=== PATIENT | female | born 1990 | race Caucasian/White ===

== ENCOUNTER 2016-07-07 12:35 | Emergency (ER) | payer OTHER ==
[2016-07-07] MEDS ORDERED: SODIUM CHLORIDE 0.9% 1,000 ML IV ONE (13:59)
[2016-07-07] MEDS ORDERED: KETOROLAC 60 MG/2 ML VIAL IVP STA (14:55)
[2016-07-07] MEDS ORDERED: KETOROLAC 30 MG/ML VIAL ONE (15:01)
== END 2016-07-07 16:04 | disposition home or self-care (01) ==
DX: J06.9 Acute upper respiratory infection, unspecified (principal); H92.01 Otalgia, right ear; R03.0 Elevated blood-pressure reading, without diagnosis of hypertension; F17.200 Nicotine dependence, unspecified, uncomplicated

== ENCOUNTER 2017-03-24 14:41 | Emergency (ER) | payer OTHER ==
[2017-03-24 16:49] VITALS: BP 123/73
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
== END 2017-03-24 17:19 | disposition home or self-care (01) ==
LOC: ED 14:41
DX: S09.90XA Unspecified injury of head, initial encounter (principal); F07.81 Postconcussional syndrome; Z87.820 Personal history of traumatic brain injury; F17.200 Nicotine dependence, unspecified, uncomplicated
CPT/HCPCS: 99283

== ENCOUNTER 2017-08-10 21:17 | Emergency (ER) | payer MEDICAID, OTHER ==
[2017-08-10 21:23] VITALS: BP 131/88
--- NOTE | 2017-08-10 21:27 | ED Physician Documentation ---
PD HPI HEENT - Stated complaint Stated Complaint: MOUTH PX - Chief complaint Chief Complaint: Heent - History obtained from History obtained from: Patient - History of Present Illness Timing - onset: Today Timing - details: Gradual onset Pain level now: 9 Location: Tooth Improves: Nothing Worsens: Other (palpation, chewing) Recently seen: Not recently seen - Additional information Additional information: had dental extraction 2 days ago, c/o sudden worsening pain in area of extraction with foul taste in mouth. She says she contacted the dentist's office and a prescription for percocet was provided. She says she dropped off the rx but did not get back to the pharmacy in time to pick it up before they closed. Inadequate relief with tylenol, ibuprofen. 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 : None HEENT: None Psych: Bipolar disorder, Schizophrenia Musculoskeletal: None Derm: None - Past Surgical History Past Surgical History: Yes General: Cholecystectomy, Appendectomy /HEADRIG SAWYER: Tubal ligation, LEEP (Cervical surgery) - Present Medications Home Medications: Ambulatory Orders Medication Instructions Recorded Confirmed Cephalexin [Keflex] 500 mg PO QID #27 capsule 08/10/17 Divalproex Sodium [Depakote] 500 mg PO DAILY 08/10/17 08/10/17 - Allergies Allergies/Adverse Reactions: Allergies Allergy/AdvReac Type Severity Reaction Status Date / Time bupropion HCl * Allergy Rash Verified 08/10/17 21:23 [From Wellbutrin] lamotrigine [From Lamictal] Allergy Rash Verified 08/10/17 21:23 morphine Allergy Rash Verified 08/10/17 21:23 - Social History Does the pt smoke?: Yes Smoking Status: Current every day smoker Does the pt drink ETOH?: No Does the pt have substance abuse?: No - Immunizations Immunizations are current?: Yes Immunizations: TDAP >10years/unknown - POLST Patient has POLST: No PD ED PE NORMAL - Vitals Vital signs reviewed: Yes - General General: Alert and oriented X 3, Well developed/nourished PD ED PE EXPANDED - HEENT HEENT Visual: 1 - swelling, tenderness (mild swelling, TTP at site of extraction; there is no discharge nor apparent drainable collection. No external swelling.) Results - Vitals Vitals: Vital Signs - 24 hr 08/10/17 21:21 Temperature 36.5 C Heart Rate 82 Respiratory 16 Rate Blood Pressure 131/88 H O2 Saturation 98 Oxygen O2 Source Room air PD MEDICAL DECISION MAKING - ED course Complexity details: considered differential, d/w patient Departure - Departure Disposition: 01 Home, Self Care Clinical Impression: History of tooth extraction, Post-operative pain Condition: Good Instructions: ED Tooth Pain Prescriptions: Cephalexin [Keflex] 500 mg PO QID #27 capsule Comments: Follow up with your dentist, next available appointment Forms: Activity restrictions Discharge Date/Time: 08/10/17 22:08
[2017-08-10] MEDS ORDERED: oxyCODONE/ACET 5/325 Prepack 4 PO STA (21:42)
[2017-08-10] MEDS ORDERED: cephALEXin 250 MG CAPSULE PO STA (21:42)
[2017-08-10] MEDS ORDERED: oxyCOD/ACETAMIN 5 MG/325 MG TABLET PO STA (21:42)
== END 2017-08-10 22:08 | disposition home or self-care (01) ==
LOC: ED 21:17
DX: G89.18 Other acute postprocedural pain (principal); F17.200 Nicotine dependence, unspecified, uncomplicated
CPT/HCPCS: 99283; A9270

== ENCOUNTER 2017-09-02 10:57 | Emergency (ER) | payer OTHER ==
--- NOTE | 2017-09-02 12:09 | ED Physician Documentation ---
PD HPI HEADACHE - Stated complaint Stated Complaint: MIGRAINE/RT SIDE WEAKNESS/VOMITING - Chief complaint Chief Complaint: Heent - History obtained from History obtained from: Patient - History of Present Illness Timing - onset: How many days ago (few) Timing - onset during: Rest, Light activity Timing - details: Gradual onset, Still present Worst headache ever?: No: Worst headache ever? (similar to prior severe migraines.) Location: Front, Left Quality: Aching. No: [place]ap Associated symptoms: Nausea, Vomiting, Vision changes (some blurring left eye), Other (feeling just tired and malaise the past week). No: Fever, Stiff neck, Weakness, Numbness Improved by: Dark room. No: Meds Worsened by: Light, Noise Contributing factors: Recent illness (she feels like she might have a cold or flu as feels malaise and very tired the past week. No specific symptoms such as fever, cough, URI, dysuria, diarrhea, etc.). No: Trauma Similar symptoms before: Diagnosis (chronic headaches and more consistent since [facility] couple years ago. States baseline headache is 5-6/10. Has had many prior meds for prophylaxis or chronic treatment. Had tried Topamax when teen and had some improvement with it. Has not been on it recently. Trying to get referrals to neurology/headache specialists again.) Recently seen: Not recently seen Review of Systems Constitutional: reports: Myalgias, Fatigue. denies: Fever, Chills Eyes: reports: Decreased vision, Photophobia. denies: Loss of vision, Discharge Nose: denies: Rhinorrhea / runny nose, Congestion Throat: denies: Sore throat Respiratory: denies: Cough GI: reports: Nausea, Vomiting. denies: Abdominal Pain, Diarrhea : denies: Dysuria, Frequency, Discharge Skin: denies: Rash, Lesions Musculoskeletal: denies: Neck pain, Back pain Neurologic: reports: Generalized weakness, Headache. 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: Tubal ligation, LEEP (Cervical surgery) - Present Medications Home Medications: Ambulatory Orders Medication Instructions Recorded Confirmed Divalproex Sodium [Depakote] 500 mg PO DAILY 08/10/17 08/10/17 Ondansetron [Zofran Odt] 8 mg PO Q6H PRN #20 tab.rapdis 09/02/17 Oxycodone HCl/Acetaminophen 1 each PO Q6H PRN #15 tablet 09/02/17 [Percocet 5-325 mg Tablet] Topiramate [Topamax] 50 mg PO DAILY #30 tablet 09/02/17 - Allergies Allergies/Adverse Reactions: Allergies Allergy/AdvReac Type Severity Reaction Status Date / Time bupropion HCl * Allergy Rash Verified 09/02/17 11:19 [From Wellbutrin] lamotrigine [From Lamictal] Allergy Rash Verified 09/02/17 11:19 morphine Allergy Rash Verified 09/02/17 11:19 - Social History Does the pt smoke?: Yes Smoking Status: Current every day smoker Does the pt drink ETOH?: No Does the pt have substance abuse?: No - Immunizations Immunizations are current?: Yes Immunizations: TDAP >10years/unknown - POLST Patient has POLST: No PD ED PE NORMAL - Vitals Vital signs reviewed: Yes - General General: Alert and oriented X 3, No acute distress, Well developed/nourished - HEENT HEENT: Atraumatic, PERRL, EOMI (light sensitive), Ears normal, Pharynx benign - Neck Neck: Supple, no meningeal sign, No adenopathy - Cardiac Cardiac: RRR, No murmur - Respiratory Respiratory: Clear bilaterally - Abdomen Abdomen: Soft, Non tender - Back Back: No CVA TTP - Derm Derm: Normal color, Warm and dry - Extremities Extremities: No tenderness to palpate, Normal ROM s pain - Neuro Neuro: Alert and oriented X 3, biometrics instructor 2-12 intact, No motor deficit, No sensory deficit, Normal speech Eye Opening: Spontaneous Motor: Obeys Commands Verbal: Oriented GCS Score: 15 - Psych Psych: Normal mood, Normal affect Results - Vitals Vitals: Vital Signs - 24 hr 09/02/17 09/02/17 11:15 15:09 Temperature 36.4 C L Heart Rate 83 58 L Respiratory 18 18 Rate Blood Pressure 142/76 H 113/67 O2 Saturation 100 99 Oxygen O2 Source Room air - Labs Labs: Laboratory Tests 09/02/17 09/02/17 09/02/17 12:30 12:45 12:45 WBC 10.3 RBC 3.88 L Hgb 12.2 Hct 36.2 L MCV 93.2 MCH 31.5 H MCHC 33.8 RDW 13.8 Plt Count 226 MPV 8.1 Neut # 7.7 H Lymph # 2.0 [place] # 0.5 Eos # 0.1 Baso # 0.0 Absolute Nucleated RBC 0.00 Nucleated RBC % 0.0 Sodium 136 Potassium 3.9 Chloride 102 Carbon Dioxide 26 Anion Gap 8.0 BUN 8 Creatinine 0.6 Estimated GFR (MDRD) 119 Glucose 96 Calcium 9.2 Magnesium 1.8 Total Bilirubin 0.6 AST 23 ALT 21 Alkaline Phosphatase 75 Total Protein 7.1 Albumin 4.1 Globulin 3.0 Albumin/Globulin Ratio 1.4 Lipase 21 L Urine Color YELLOW Urine Clarity CLEAR Urine pH 8.5 H Ur Specific [place] 1.015 Urine Protein NEGATIVE Urine Glucose (UA) NEGATIVE Urine Ketones NEGATIVE Urine Occult Blood NEGATIVE Urine Nitrite NEGATIVE Urine Bilirubin NEGATIVE Urine Urobilinogen 0.2 (NORMAL) Ur Leukocyte Esterase NEGATIVE Ur Microscopic Review NOT INDICATED Urine Culture Comments NOT INDICATED Urine HCG, Qual NEGATIVE Last Dose Date Last Dose Time Valproic Acid 09/02/17 12:45 WBC RBC Hgb Hct MCV MCH MCHC RDW Plt Count MPV Neut # Lymph # [place] # Eos # Baso # Absolute Nucleated RBC Nucleated RBC % Sodium Potassium Chloride Carbon Dioxide Anion Gap BUN Creatinine Estimated GFR (MDRD) Glucose Calcium Magnesium Total Bilirubin AST ALT Alkaline Phosphatase Total Protein Albumin Globulin Albumin/Globulin Ratio Lipase Urine Color Urine Clarity Urine pH Ur Specific [place] Urine Protein Urine Glucose (UA) Urine Ketones Urine Occult Blood Urine Nitrite Urine Bilirubin Urine Urobilinogen Ur Leukocyte Esterase Ur Microscopic Review Urine Culture Comments Urine HCG, Qual Last Dose Date Unknown Last Dose Time Unknown Valproic Acid < 10.0 PD MEDICAL DECISION MAKING - ED course Complexity details: re-evaluated patient (feeling down to baseline pain level or less, still at 4-5/10 but that is comfortable for her. Feels able to go home. Discussed trying some meds pending neuro consults. ), considered differential (sounds like migraine and has had some general symptoms of tired and fatigue but does not seem meningitic. Labs are good.), d/w patient Departure - Departure Disposition: Home, Self Care Condition: Stable Record reviewed to determine appropriate education?: Yes Instructions: ED Headache Migraine Follow-Up: JOSEPHINE JACOBO [Primary Care Provider] - Prescriptions: Ondansetron [Zofran Odt] 8 mg PO Q6H PRN #20 tab.rapdis PRN Reason: Nausea / Vomiting Oxycodone HCl/Acetaminophen [Percocet 5-325 mg Tablet] 1 each PO Q6H PRN #15 tablet PRN Reason: Pain Topiramate [Topamax] 50 mg PO DAILY #30 tablet Comments: Your blood tests and urine tests are normal. Your Depakote level is low so not going to be given you side effects of the tiredness and such. He may have a viral illness recently that is making you feel worse. You do not look to have a serious infection. We can try Topamax daily for migraine prophylaxis. Start with 25 mg (half tablet) nightly for a week and then go to a whole tablet nightly. Use ondansetron for nausea. Add pain medicine if needed in the short- term. Follow-up with your primary care and subsequently neurology when the referrals go through. Forms: Activity restrictions Discharge Date/Time: 09/02/17 15:16
[2017-09-02] MEDS ORDERED: PROCHLORPERAZINE 10 MG/2 ML VIAL IVP STA ×2 (12:23→13:24)
[2017-09-02] MEDS ORDERED: TRIAMCINOLONE 40 MG/ML VIAL IM STA (12:23)
[2017-09-02] MEDS ORDERED: diphenhydrAMINE INJ 50 MG/ML VIAL IVP STA (12:23)
[2017-09-02] MEDS ORDERED: KETOROLAC 60 MG/2 ML VIAL IVP STA (12:23)
[2017-09-02] MEDS ORDERED: SODIUM CHLORIDE 0.9% 1,000 ML IV ONE ×2 (12:23→12:24)
[2017-09-02 12:38] LABS: BILIRUBIN,URINE NEGATIVE (NEGATIVE); GLUCOSE, URINE (UA) NEGATIVE (NEGATIVE); KETONES,URINE (UA) NEGATIVE (NEGATIVE); LEUKOCYTE ESTERASE, URINE NEGATIVE (NEGATIVE); NITRITE,URINE NEGATIVE (NEGATIVE); OCCULT BLOOD,URINE NEGATIVE (NEGATIVE); PH,URINE 8.5 PH (5.0-7.5); PROTEIN,URINE NEGATIVE (NEGATIVE); UROBILINOGEN,URINE 0.2 (NORMAL) E.U./dL (NORMAL)
[2017-09-02 12:40] LABS: CLARITY,URINE CLEAR (CLEAR); HCG UR QUAL NEGATIVE
[2017-09-02 13:12] LABS: BASOPHILS % (AUTO) 0.3 %; EOSINOPHILS # (AUTO) 0.1 10^3/uL (0.0-0.7); EOSINOPHILS % (AUTO) 0.6 %; HGB - HEMOGLOBIN 12.2 g/dL (12.0-16.0); LYMPHOCYTES % (AUTO) 18.9 %; MEAN CORPUSCULAR HEMOGLOBIN 31.5 pg (27.0-31.0); MEAN CORPUSCULAR HGB CONC 33.8 g/dL (32.0-36.0); MEAN CORPUSCULAR VOLUME 93.2 fL (81.0-99.0); MEAN PLATELET VOLUME 8.1 fL (7.9-10.8); MONOCYTES # (AUTO) 0.5 10^3/uL (0.0-1.0); MONOCYTES % (AUTO) 5.1 %; NEUTROPHILS # (AUTO) 7.7 10^3/uL (1.5-6.6); NEUTROPHILS % (AUTO) 75.1 %; PLT - PLATELET COUNT 226 10^3/uL (130-450); RED BLOOD COUNT 3.88 10^6/uL (4.20-5.40); RED CELL DISTRIBUTION WIDTH 13.8 % (12.0-15.0); WHITE BLOOD COUNT 10.3 x10^3/uL (4.8-10.8)
[2017-09-02 13:23] LABS: ALBUMIN 4.1 g/dL (3.2-5.5); ALBUMIN/GLOBULIN RATIO 1.4 (1.0-2.2); BILIRUBIN,TOTAL 0.6 mg/dL (0.2-1.0); CALCIUM 9.2 mg/dL (8.5-10.3); CREATININE 0.6 mg/dL (0.4-1.0); MAGNESIUM 1.8 mg/dL (1.7-2.8); TOTAL PROTEIN 7.1 g/dL (6.7-8.2)
[2017-09-02] MEDS ORDERED: HYDROmorphone 2 MG/ML VIAL IVP STA ×2 (13:24→14:55)
[2017-09-02 13:34] LABS: VALPROIC ACID (DEPAKOTE) < 10.0 ug/mL
[2017-09-02 15:09] VITALS: BP 113/67
== END 2017-09-02 15:16 | disposition home or self-care (01) ==
LOC: ED 10:57
DX: G43.909 Migraine, unspecified, not intractable, without status migrainosus (principal); F17.200 Nicotine dependence, unspecified, uncomplicated
CPT/HCPCS: 36415; 80053; 80164; 81003; 81025; 83690; 83735; 85025; 96361; 96372; 96374; 96375; 96376; 99283; 99284; J1170; J1200; 81001; 87086

== ENCOUNTER 2017-09-10 21:31 | Emergency (ER) | payer OTHER ==
[2017-09-10 21:41] VITALS: BP 145/86
[2017-09-10] MEDS ORDERED: oxyCODONE/ACET 5/325 Prepack 4 PO STA (21:48)
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
--- NOTE | 2017-09-10 22:51 | XRAY Preliminary Report ---
Exam: XR CERVICAL SPINE 2 VIEW IMPRESSION: No acute radiographic abnormalities. [facility] SITE ID: [id number]
--- NOTE | 2017-09-10 22:52 | XRAY Report ---
EXAM: CERVICAL SPINE RADIOGRAPHY EXAM DATE: 09/10/2017 10:11 PM. CLINICAL HISTORY: Neck inj. COMPARISONS: 06/07/15. TECHNIQUE: 3 views. FINDINGS: Alignment: No spondylolisthesis or scoliosis. Bones: The cervical vertebral bodies and posterior elements are well visualized from the skull base t hrough C7-T1. No acute displaced fractures. Disks: Disk heights are maintained. Facets: No degenerative disease. Soft Tissues: No prevertebral soft tissue swelling. The visualized lung apices are clear. IMPRESSION: No acute radiographic abnormalities. [facility] Referring Provider Line: [phone] SITE ID: [id number]
== END 2017-09-10 22:55 | disposition home or self-care (01) ==
LOC: ED 21:31
DX: S10.93XA Contusion of unspecified part of neck, initial encounter (principal); W51.XXXA Accidental striking against or bumped into by another person, initial encounter; Y92.129 Unspecified place in nursing home as the place of occurrence of the external cause; Y99.0 Civilian activity done for income or pay; F17.200 Nicotine dependence, unspecified, uncomplicated
CPT/HCPCS: 1040M; 72040; 99282; 99283

== ENCOUNTER 2017-10-17 18:59 | Emergency (ER) | payer OTHER ==
[2017-10-17] MEDS ORDERED: KETOROLAC 60 MG/2 ML VIAL IM STA (20:07)
[2017-10-17] MEDS ORDERED: DEXAMETHASONE 10 MG/ML VIAL PO STA (20:07)
--- NOTE | 2017-10-17 20:10 | ED Physician Documentation ---
PD HPI BACK INJURY - Stated complaint Stated Complaint: BACK PX - History obtained from History obtained from: Patient, Family - History of Present Illness Location: Right, Lower Type of injury: Other (lifting injury) Where injury occurred: Work Timing - onset: Enter time (1300), Today Timing - duration: Hours Timing - details: Abrupt onset, Still present Quality: Pain, Spasm, Sharp Improved by: Rest, Ice, Immobilization Worsened by: Moving, Palpating Associated symptoms: No: Fever, Weakness, Numbness, Incontinent of urine, Unable to urinate, Hematuria, Incontinent of stool Contributing factors: No: Anticoagulated Similar symptoms before: Has not had sx before Recently seen: Not recently seen - Additional information Additional information: 26-year-old female was at 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 She states that it was wrenched her back she felt a pop in the back and now has pain radiating down into the right leg. She denies any numbness she denies any saddle anesthesia or bladder or bowel incontinence. 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 : None HEENT: None Psych: Bipolar disorder, Schizophrenia Musculoskeletal: None Derm: None - Past Surgical History Past Surgical History: Yes General: Cholecystectomy, Appendectomy /PROFESSOR OF LANGUAGES: Tubal ligation, LEEP (Cervical surgery) - Present Medications Home Medications: Ambulatory Orders Medication Instructions Recorded Confirmed Divalproex Sodium [Depakote] 500 mg PO DAILY 08/10/17 08/10/17 Ondansetron [Zofran Odt] 8 mg PO Q6H PRN #20 tab.rapdis 09/02/17 Topiramate [Topamax] 50 mg PO DAILY #30 tablet 09/02/17 Cyclobenzaprine [Flexeril] 10 mg PO TID PRN #20 tablet 10/17/17 Ondansetron Odt [Zofran] 4 mg TL Q6H PRN #10 tablet 10/17/17 oxyCODONE/ACET 5/325 [Percocet 5 1 each PO Q4-6H PRN #12 tablet 10/17/17 mg/325 mg] - Allergies Allergies/Adverse Reactions: Allergies Allergy/AdvReac Type Severity Reaction Status Date / Time bupropion HCl * Allergy Rash Verified 10/17/17 19:13 [From Wellbutrin] lamotrigine [From Lamictal] Allergy Rash Verified 10/17/17 19:13 morphine Allergy Rash Verified 10/17/17 19:13 - Social History Does the pt smoke?: Yes Smoking Status: Current every day smoker Does the pt drink ETOH?: No Does the pt have substance abuse?: No - Immunizations Immunizations are current?: No Immunizations: TDAP >10years/unknown, Other immun current - POLST Patient has POLST: No PD ED PE NORMAL - Vitals Vital signs reviewed: Yes (hypertensive mild ) - General General: Alert and oriented X 3, No acute distress, Well developed/nourished - HEENT HEENT: Atraumatic, PERRL - Respiratory Respiratory: No respiratory distress - Back Back: No CVA TTP, No spinal TTP, Other (There is paraspinous muscle tenderness to the mid lumbar spine on the rigth side and radiating into the sciatic notch.) - Derm Derm: Normal color, Warm and dry, No rash - Extremities Extremities: No deformity, No edema - Neuro Neuro: Alert and oriented X 3, No motor deficit, No sensory deficit, Normal speech Eye Opening: Spontaneous Motor: Obeys Commands Verbal: Oriented GCS Score: 15 - Psych Psych: Normal mood, Normal affect Results - Vitals Vitals: Vital Signs - 24 hr 10/17/17 19:10 Temperature 36.6 C Heart Rate 77 Respiratory 18 Rate Blood Pressure 135/76 H O2 Saturation 100 Oxygen O2 Source Room air PD MEDICAL DECISION MAKING - ED course Complexity details: reviewed old records, considered differential, d/w patient, d/w family ED course: 26-year-old female has wrenched her back has acute lumbar pain and spasm with radiation down the right leg. She is treated here in the emergency department with 10 mg of dexamethasone orally and 60 mg Toradol IM and we will place her on some pain medication muscle relaxant. - Sepsis Event Vital Signs: Vital Signs - 24 hr 10/17/17 19:10 Temperature 36.6 C Heart Rate 77 Respiratory 18 Rate Blood Pressure 135/76 H O2 Saturation 100 Oxygen O2 Source Room air Departure - Departure Disposition: 01 Home, Self Care Clinical Impression: Sciatica Qualifiers: Laterality: right Qualified Code(s): M54.31 - Sciatica, right side Condition: Stable Instructions: ED Sciatica Follow-Up: JOSEPHINE JACOBO [Primary Care Provider] - [facility] [Provider Group] Prescriptions: Cyclobenzaprine [Flexeril] 10 mg PO TID PRN #20 tablet PRN Reason: Spasms Ondansetron Odt [Zofran] 4 mg TL Q6H PRN #10 tablet PRN Reason: Nausea / Vomiting oxyCODONE/ACET 5/325 [Percocet 5 mg/325 mg] 1 each PO Q4-6H PRN #12 tablet PRN Reason: Pain Forms: Activity restrictions
[2017-10-17 20:42] VITALS: BP 121/68
== END 2017-10-17 20:45 | disposition home or self-care (01) ==
LOC: ED 18:59
DX: M54.31 Sciatica, right side (principal); F17.200 Nicotine dependence, unspecified, uncomplicated
CPT/HCPCS: 1040M; 99283

== ENCOUNTER 2017-10-26 13:08 | Emergency (ER) | payer OTHER ==
[2017-10-26 13:24] VITALS: BP 139/68
[2017-10-26] MEDS ORDERED: ALBUTEROL NEB 2.5 MG/3 ML INH STA (14:02)
--- NOTE | 2017-10-26 14:04 | ED Physician Documentation ---
PD HPI PED ILLNESS - Stated complaint Stated Complaint: COUGH/ Congestion - Chief complaint Chief Complaint: Fever - History obtained from History obtained from: Patient - History of Present Illness Timing - onset: Other (Sick for about 3 days with productive cough and chest pain with coughing and developed back pain with coughing and also fever to 102. 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 : None HEENT: None Psych: Bipolar disorder, Schizophrenia Musculoskeletal: None Derm: None - Past Surgical History Past Surgical History: Yes General: Cholecystectomy, Appendectomy /CORSAGE MAKER: Tubal ligation, LEEP (Cervical surgery) - Present Medications Home Medications: Ambulatory Orders Medication Instructions Recorded Confirmed Divalproex Sodium [Depakote] 500 mg PO DAILY 08/10/17 08/10/17 Ondansetron [Zofran Odt] 8 mg PO Q6H PRN #20 tab.rapdis 09/02/17 Topiramate [Topamax] 50 mg PO DAILY #30 tablet 09/02/17 Cyclobenzaprine [Flexeril] 10 mg PO TID PRN #20 tablet 10/17/17 Ondansetron Odt [Zofran] 4 mg TL Q6H PRN #10 tablet 10/17/17 oxyCODONE/ACET 5/325 [Percocet 5 1 each PO Q4-6H PRN #12 tablet 10/17/17 mg/325 mg] Albuterol Sulfate [Proventil Hfa 1 - 2 puffs IH Q4H PRN #1 10/26/17 Inhaler] hfa.aer.ad Benzonatate 200 mg PO TID PRN #20 capsule 10/26/17 Cyclobenzaprine [Flexeril] 10 mg PO TID PRN #20 tablet 10/26/17 Oxycodone HCl/Acetaminophen 1 - 2 tab PO Q4H PRN #15 tablet 10/26/17 [Percocet 5-325 mg Tablet] - Allergies Allergies/Adverse Reactions: Allergies Allergy/AdvReac Type Severity Reaction Status Date / Time bupropion HCl * Allergy Rash Verified 10/17/17 19:13 [From Wellbutrin] lamotrigine [From Lamictal] Allergy Rash Verified 10/17/17 19:13 morphine Allergy Rash Verified 10/17/17 19:13 - Social History Does the pt smoke?: Yes Smoking Status: Current every day smoker Does the pt drink ETOH?: No Does the pt have substance abuse?: No - Immunizations Immunizations are current?: No Immunizations: TDAP >10years/unknown, Other immun current - POLST Patient has POLST: No PD ED PE NORMAL - Vitals Vital signs reviewed: Yes - General General: Alert and oriented X 3, No acute distress - HEENT HEENT: PERRL, EOMI, Ears normal, Moist mucous membranes, Pharynx benign - Neck Neck: Supple, no meningeal sign, No bony TTP - Cardiac Cardiac: RRR, No murmur - Respiratory Respiratory: No respiratory distress, Other (Mildly rhonchorous throughout with good air motion and nonlabored) - Abdomen Abdomen: Non tender - Neuro Neuro: Alert and oriented X 3, Normal speech - Psych Psych: Normal mood, Normal affect Results - Vitals Vitals: Vital Signs - 24 hr 10/26/17 10/26/17 13:21 14:11 Temperature 36.4 C L Heart Rate 104 H 94 Respiratory 16 20 Rate Blood Pressure 139/68 H O2 Saturation 99 Oxygen O2 Source Room air - Rads (name of study) 2v chest Radiology: EMP read contemporaneously (normal) PD MEDICAL DECISION MAKING - Sepsis Event Vital Signs: Vital Signs - 24 hr 10/26/17 10/26/17 13:21 14:11 Temperature 36.4 C L Heart Rate 104 H 94 Respiratory 16 20 Rate Blood Pressure 139/68 H O2 Saturation 99 Oxygen O2 Source Room air Departure - Departure Disposition: 01 Home, Self Care Clinical Impression: Upper respiratory infection Qualifiers: URI type: unspecified viral URI Qualified Code(s): J06.9 - Acute upper respiratory infection, unspecified Condition: Good Record reviewed to determine appropriate education?: Yes Instructions: ED Bronchitis Asthmatic Prescriptions: Albuterol Sulfate [Proventil Hfa Inhaler] 1 - 2 puffs IH Q4H PRN #1 hfa.aer.ad PRN Reason: Cough Benzonatate 200 mg PO TID PRN #20 capsule PRN Reason: Cough Cyclobenzaprine [Flexeril] 10 mg PO TID PRN #20 tablet PRN Reason: Pain Oxycodone HCl/Acetaminophen [Percocet 5-325 mg Tablet] 1 - 2 tab PO Q4H PRN #15 tablet PRN Reason: Pain Comments: Call your doctor to arrange a follow-up appointment, make the next available appointment. In the interim, return anytime if worse or if new symptoms develop. Your blood pressure was elevated today on check into the emergency department. This does not mean that you have hypertension, it is a common phenomenon to come to the emergency department and have elevated blood pressure. I recommend that you see your primary care physician within the week to have it rechecked when you are feeling better.
--- NOTE | 2017-10-26 15:02 | XRAY Report ---
Procedure Date: 10/26/2017 Accession Number: [id number] / [id number] Procedure: XR - Chest 2 View X-Ray CPT Code: 01679 FULL RESULT: EXAM: CHEST RADIOGRAPHY EXAM DATE: 10/26/2017 02:38 PM. CLINICAL HISTORY: Cough. COMPARISON: Chest x-ray 07/07/2016. TECHNIQUE: 2 views. FINDINGS: Lungs/Pleura: No focal opacities evident. No pleural effusion. No pneumothorax. Normal volumes. Mediastinum: Heart and mediastinal contours are unremarkable. Other: Surgical clips in the upper abdomen. Bilateral piercings noted. IMPRESSION: No acute pulmonary consolidation. RADIA
== END 2017-10-26 15:12 | disposition home or self-care (01) ==
LOC: ED 13:08
DX: J06.9 Acute upper respiratory infection, unspecified (principal); R03.0 Elevated blood-pressure reading, without diagnosis of hypertension; F17.200 Nicotine dependence, unspecified, uncomplicated
CPT/HCPCS: 71046; 94640; 99283

== ENCOUNTER 2017-12-23 12:39 | Emergency (ER) | payer OTHER ==
--- NOTE | 2017-12-23 15:52 | ED Physician Documentation ---
PD HPI FEMALE - Stated complaint Stated Complaint: FEM /CRAMPING - Chief complaint Chief Complaint: General - History obtained from History obtained from: Patient - History of Present Illness Timing - onset: How many days ago (3-4) Timing - duration: Days Timing - details: Gradual onset, Still present, Intermittant Associated symptoms: Abdominal pain (lower right abd, without prior similar. Had had recent cysts on left.). No: Dysuria, Urinary frequency Similar symptoms before: No diagnosis (similar on left with Dx of ovarian cyst. Not had right side hurt before.) Recently seen: Not recently seen Review of Systems Constitutional: reports: Chills. 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 : None HEENT: None Psych: Bipolar disorder, Schizophrenia Musculoskeletal: None Derm: None - Past Surgical History Past Surgical History: Yes General: Cholecystectomy, Appendectomy /BUSINESS MAIL ENTRY CLERK: Tubal ligation, LEEP (Cervical surgery) - Present Medications Home Medications: Ambulatory Orders Medication Instructions Recorded Confirmed Divalproex Sodium [Depakote] 500 mg PO DAILY 08/10/17 08/10/17 Ondansetron [Zofran Odt] 8 mg PO Q6H PRN #20 tab.rapdis 09/02/17 Topiramate [Topamax] 50 mg PO DAILY #30 tablet 09/02/17 Cyclobenzaprine [Flexeril] 10 mg PO TID PRN #20 tablet 10/17/17 Ondansetron Odt [Zofran] 4 mg TL Q6H PRN #10 tablet 10/17/17 oxyCODONE/ACET 5/325 [Percocet 5 1 each PO Q4-6H PRN #12 tablet 10/17/17 mg/325 mg] Cyclobenzaprine [Flexeril] 10 mg PO TID PRN #20 tablet 10/26/17 Oxycodone HCl/Acetaminophen 1 - 2 tab PO Q4H PRN #15 tablet 10/26/17 [Percocet 5-325 mg Tablet] RX: Albuterol Sulfate [Proventil 1 - 2 puffs IH Q4H PRN #1 10/26/17 Hfa Inhaler] hfa.aer.ad RX: Benzonatate 200 mg PO TID PRN #20 capsule 10/26/17 Ondansetron HCl [Zofran] 4 mg PO Q6H PRN #20 tablet 12/23/17 Oxycodone HCl/Acetaminophen 1 each PO Q6H PRN #20 tablet 12/23/17 [Percocet 5-325 mg Tablet] RX: Naproxen [Naprosyn] 500 mg PO BID PRN #20 tablet 12/23/17 - Allergies Allergies/Adverse Reactions: Allergies Allergy/AdvReac Type Severity Reaction Status Date / Time bupropion HCl * Allergy Rash Verified 12/23/17 12:48 [From Wellbutrin] lamotrigine [From Lamictal] Allergy Rash Verified 12/23/17 12:48 morphine Allergy Rash Verified 12/23/17 12:48 - Social History Does the pt smoke?: Yes Smoking Status: Current every day smoker Does the pt drink ETOH?: No Does the pt have substance abuse?: No - Immunizations Immunizations are current?: No Immunizations: TDAP >10years/unknown, Other immun current - POLST Patient has POLST: No PD ED PE NORMAL - Vitals Vital signs reviewed: Yes - General General: Alert and oriented X 3, Well developed/nourished, Other (appears in pain, holding lower abd. ) - HEENT HEENT: Pharynx benign - Neck Neck: Supple, no meningeal sign, No adenopathy - Cardiac Cardiac: RRR, No murmur - Respiratory Respiratory: Clear bilaterally - Abdomen Abdomen: Normal bowel sounds, Soft, Non distended, No organomegaly, Other (tendeer RLQ and lateral suprapubic area. No guarding nor percussion tenderness. ) - Female Female : Deferred - Rectal Rectal: Deferred - Back Back: No CVA TTP - Derm Derm: Normal color, Warm and dry, No rash - Extremities Extremities: No tenderness to palpate, Normal ROM s pain, No edema, No calf tenderness / cord - Neuro Neuro: Alert and oriented X 3, No motor deficit, Normal speech Results - Vitals Vitals: Vital Signs - 24 hr 12/23/17 12/23/17 12/23/17 12:44 18:26 18:42 Temperature 36.7 C 36.4 C L Heart Rate 90 78 68 Respiratory 18 16 15 Rate Blood Pressure 138/77 H 115/76 117/74 O2 Saturation 99 100 100 Oxygen O2 Source Room air - Labs Labs: Laboratory Tests 12/23/17 12/23/17 15:55 17:30 WBC 8.3 RBC 3.88 L Hgb 12.4 Hct 36.5 L MCV 94.0 MCH 31.9 H MCHC 34.0 RDW 13.1 Plt Count 253 MPV 7.7 L Neut # (Auto) 5.9 Lymph # (Auto) 1.9 [place] # (Auto) 0.4 Eos # (Auto) 0.1 Baso # (Auto) 0.0 Absolute Nucleated RBC 0.01 Nucleated RBC % 0.1 Urine Color YELLOW Urine Clarity CLEAR Urine pH 7.5 Ur Specific [place] 1.010 Urine Protein NEGATIVE Urine Glucose (UA) NEGATIVE Urine Ketones NEGATIVE Urine Occult Blood LARGE H Urine Nitrite NEGATIVE Urine Bilirubin NEGATIVE Urine Urobilinogen 0.2 (NORMAL) Ur Leukocyte Esterase NEGATIVE Urine RBC 6-10 H Urine WBC 0-3 Ur Squamous Epith Cells RARE Squamous Urine Bacteria None Seen Ur Microscopic Review INDICATED Urine Culture Comments NOT INDICATED Urine HCG, Qual NEGATIVE - Rads (name of study) abd ct Radiology: Prelim report reviewed (no acute findings) PD MEDICAL DECISION MAKING - ED course Complexity details: reviewed results (normal appendix, no masses, no apparent cause for the pain. ), re-evaluated patient (improved with fluids/meds. ), considered differential, d/w patient - Sepsis Event Vital Signs: Vital Signs - 24 hr 12/23/17 12/23/17 12/23/17 12:44 18:26 18:42 Temperature 36.7 C 36.4 C L Heart Rate 90 78 68 Respiratory 18 16 15 Rate Blood Pressure 138/77 H 115/76 117/74 O2 Saturation 99 100 100 Oxygen O2 Source Room air Departure - Departure Disposition: 01 Home, Self Care Clinical Impression: Pelvic pain, Dysmenorrhea Condition: Stable Record reviewed to determine appropriate education?: Yes Instructions: ED Cramping Menstrual Follow-Up: Ora Frost DO [Provider Admit Priv/Credential] - Prescriptions: RX: Naproxen [Naprosyn] 500 mg PO BID PRN #20 tablet PRN Reason: Pain Ondansetron HCl [Zofran] 4 mg PO Q6H PRN #20 tablet PRN Reason: Nausea / Vomiting Oxycodone HCl/Acetaminophen [Percocet 5-325 mg Tablet] 1 each PO Q6H PRN #20 tablet PRN Reason: Pain Comments: Your urine test and ultrasound appear normal there is no obvious signs of tu mors, cysts, fibroids, ovarian torsion or other acute abnormality. No bladder infection. Presume this is significant cramping related to the clots that you are passing. However would not be able to exclude endometriosis or such. Use of anti-inflammatories and pain medicine now for this. Recheck if not improved over the next few days. Follow-up with gynecology regarding further evaluation of it. Discharge Date/Time: 12/23/17 18:43
[2017-12-23 16:03] LABS: BILIRUBIN,URINE NEGATIVE (NEGATIVE); GLUCOSE, URINE (UA) NEGATIVE (NEGATIVE); KETONES,URINE (UA) NEGATIVE (NEGATIVE); LEUKOCYTE ESTERASE, URINE NEGATIVE (NEGATIVE); NITRITE,URINE NEGATIVE (NEGATIVE); OCCULT BLOOD,URINE LARGE (NEGATIVE); PH,URINE 7.5 PH (5.0-7.5); PROTEIN,URINE NEGATIVE (NEGATIVE); UROBILINOGEN,URINE 0.2 (NORMAL) E.U./dL (NORMAL)
[2017-12-23 16:04] LABS: CLARITY,URINE CLEAR (CLEAR)
[2017-12-23 16:05] LABS: HCG UR QUAL NEGATIVE
[2017-12-23] MEDS ORDERED: KETOROLAC 60 MG/2 ML VIAL IVP STA (16:06)
[2017-12-23] MEDS ORDERED: SODIUM CHLORIDE 0.9% 1,000 ML IV ONE (16:06)
[2017-12-23] MEDS ORDERED: HYDROmorphone 2 MG/ML VIAL IVP STA ×2 (16:07→18:19)
[2017-12-23] MEDS ORDERED: ONDANSETRON 4 MG/2 ML VIAL IVP STA (16:07)
[2017-12-23 16:56] LABS: BACTERIA,URINE None Seen /HPF (None Seen); SQUAMOUS EPITHELIAL CELL,UR RARE Squamous (<= Few)
--- NOTE | 2017-12-23 17:42 | Ultrasound Report ---
Reason: left lower abd pain and vag bleeding Procedure Date: 12/23/2017 Accession Number: [id number] / [id number] Procedure: US - Pelvic w/Transvag+Doppler Ltd CPT Code: FULL RESULT: EXAM: PELVIC ULTRASOUND EXAM DATE: 12/23/2017 05:18 PM. CLINICAL HISTORY: Left lower abd pain and vag bleeding. COMPARISON: 08/24/2014. TECHNIQUE: Realtime transabdominal pelvic scan performed to identify the uterus and adnexa and as an overview of other pelvic structures, followed by transvaginal scan to provide greater detail of the uterus and adnexa, with static image documentation. FINDINGS: Uterus: 8.0 x 4.5 x 4.2 cm, volume 79.0 cc. Anteverted position. Normal overall size and echotexture. Masses: None. Endometrium: 2.9 mm. Normal. Cervix: Small nabothian cysts. Right Ovary: 3.6 x 1.6 x 1.3 cm, volume 3.9 cc. Normal echotexture and blood flow. Left Ovary: 3.4 x 1.5 x 1.0 cm, volume 2.7 cc. Normal echotexture and blood flow. Free Fluid: Small amount of simple free fluid, a nonspecific finding, probably physiologic. Other: None. IMPRESSION: Essentially negative study. RADIA
[2017-12-23 17:57] LABS: BASOPHILS % (AUTO) 0.3 %; EOSINOPHILS # (AUTO) 0.1 10^3/uL (0.0-0.7); EOSINOPHILS % (AUTO) 0.7 %; HGB - HEMOGLOBIN 12.4 g/dL (12.0-16.0); LYMPHOCYTES # (AUTO) 1.9 10^3/uL (1.5-3.5); MEAN CORPUSCULAR HEMOGLOBIN 31.9 pg (27.0-31.0); MEAN PLATELET VOLUME 7.7 fL (7.9-10.8); MONOCYTES # (AUTO) 0.4 10^3/uL (0.0-1.0); MONOCYTES % (AUTO) 4.3 %; NEUTROPHILS # (AUTO) 5.9 10^3/uL (1.5-6.6); NEUTROPHILS % (AUTO) 71.7 %; PLT - PLATELET COUNT 253 10^3/uL (130-450); RED BLOOD COUNT 3.88 10^6/uL (4.20-5.40); RED CELL DISTRIBUTION WIDTH 13.1 % (12.0-15.0); WHITE BLOOD COUNT 8.3 x10^3/uL (4.8-10.8)
[2017-12-23 18:43] VITALS: BP 117/74
== END 2017-12-23 18:43 | disposition home or self-care (01) ==
LOC: ED 12:39
DX: R10.2 Pelvic and perineal pain (principal); N94.6 Dysmenorrhea, unspecified; F17.200 Nicotine dependence, unspecified, uncomplicated
CPT/HCPCS: 36415; 76830; 76856; 81001; 81025; 85025; 93976; 96361; 96374; 96375; 96376; 99283; 99284; J1170; 81003; 87086

== ENCOUNTER 2018-01-11 08:37 | Emergency (ER) | payer OTHER ==
[2018-01-11 09:15] LABS: BILIRUBIN,URINE NEGATIVE (NEGATIVE); GLUCOSE, URINE (UA) NEGATIVE (NEGATIVE); KETONES,URINE (UA) NEGATIVE (NEGATIVE); LEUKOCYTE ESTERASE, URINE NEGATIVE (NEGATIVE); NITRITE,URINE NEGATIVE (NEGATIVE); OCCULT BLOOD,URINE NEGATIVE (NEGATIVE); PROTEIN,URINE NEGATIVE (NEGATIVE); UROBILINOGEN,URINE 0.2 (NORMAL) E.U./dL (NORMAL)
[2018-01-11 09:17] LABS: CLARITY,URINE CLEAR (CLEAR); HCG UR QUAL NEGATIVE
[2018-01-11] MEDS ORDERED: KETOROLAC 60 MG/2 ML VIAL IM STA (09:46)
--- NOTE | 2018-01-11 09:50 | ED Physician Documentation ---
History of Present Illness - Stated complaint Stated Complaint: FEM /BACK PX - Chief complaint Chief Complaint: Abd Pain - Additonal information Additional information: hx from pt 27 y/o f not preg now LMP 2 weeks ago s/p tubal and SO s/p vas seen 12/23/17 for pelvic pain and bleeding and had sono and was referred to MAINTENANCE FOREMAN for fup has not had that appt yet 2/2 work schedule last night while at work had severe pelvic cramping and passed 2 blood clots vaginally no fever no discharge pshx LEEP tubal appy pastora Review of Systems Constitutional: denies: Fever, Chills Cardiac: denies: Chest pain / pressure GI: denies: Abdominal Pain : reports: LMP (2 weeks ago), Vaginal bleeding. 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 : None HEENT: None Psych: Bipolar disorder, Schizophrenia Musculoskeletal: None Derm: None - Past Surgical History Past Surgical History: Yes General: Cholecystectomy, Appendectomy /MAINTENANCE FOREMAN: Tubal ligation, LEEP (Cervical surgery) - Present Medications Home Medications: Ambulatory Orders Medication Instructions Recorded Confirmed Divalproex Sodium [Depakote] 500 mg PO DAILY 08/10/17 08/10/17 Ondansetron [Zofran Odt] 8 mg PO Q6H PRN #20 tab.rapdis 09/02/17 Topiramate [Topamax] 50 mg PO DAILY #30 tablet 09/02/17 Cyclobenzaprine [Flexeril] 10 mg PO TID PRN #20 tablet 10/17/17 Ondansetron Odt [Zofran] 4 mg TL Q6H PRN #10 tablet 10/17/17 oxyCODONE/ACET 5/325 [Percocet 5 1 each PO Q4-6H PRN #12 tablet 10/17/17 mg/325 mg] Albuterol Sulfate [Proventil Hfa 1 - 2 puffs IH Q4H PRN #1 10/26/17 Inhaler] hfa.aer.ad Benzonatate 200 mg PO TID PRN #20 capsule 10/26/17 Cyclobenzaprine [Flexeril] 10 mg PO TID PRN #20 tablet 10/26/17 Oxycodone HCl/Acetaminophen 1 - 2 tab PO Q4H PRN #15 tablet 10/26/17 [Percocet 5-325 mg Tablet] Naproxen [Naprosyn] 500 mg PO BID PRN #20 tablet 12/23/17 Ondansetron HCl [Zofran] 4 mg PO Q6H PRN #20 tablet 12/23/17 Oxycodone HCl/Acetaminophen 1 each PO Q6H PRN #20 tablet 12/23/17 [Percocet 5-325 mg Tablet] Cyclobenzaprine [Flexeril] 10 mg PO TID PRN #20 tablet 01/11/18 Ibuprofen [Motrin] 400 mg PO Q6H PRN #30 tablet 01/11/18 - Allergies Allergies/Adverse Reactions: Allergies Allergy/AdvReac Type Severity Reaction Status Date / Time bupropion HCl * Allergy Rash Verified 01/11/18 08:47 [From Wellbutrin] lamotrigine [From Lamictal] Allergy Rash Verified 01/11/18 08:47 morphine Allergy Rash Verified 01/11/18 08:47 - Social History Does the pt smoke?: Yes Smoking Status: Current every day smoker Does the pt drink ETOH?: No Does the pt have substance abuse?: No - Immunizations Immunizations are current?: No Immunizations: TDAP >10years/unknown, Other immun current - POLST Patient has POLST: No PD ED PE NORMAL - Vitals Vital signs reviewed: Yes - Cardiac Cardiac: RRR - Respiratory Respiratory: No respiratory distress - Abdomen Abdomen: Soft, Other (TTP lower abd s rebound or guarding) - Female Female : Ux Manager present (Joycelyn), Other (no bleeding cervic closed, small nl apperaing white dc, cx sent) Results - Vitals Vitals: Vital Signs - 24 hr 01/11/18 01/11/18 08:43 10:25 Temperature 35.7 C L Heart Rate 92 75 Respiratory 20 16 Rate Blood Pressure 138/95 H 119/72 O2 Saturation 100 100 Oxygen O2 Source Room air - Labs Labs: Laboratory Tests 01/11/18 09:00 Urine Color LT. YELLOW Urine Clarity CLEAR Urine pH 7.0 Ur Specific [place] <=1.005 Urine Protein NEGATIVE Urine Glucose (UA) NEGATIVE Urine Ketones NEGATIVE Urine Occult Blood NEGATIVE Urine Nitrite NEGATIVE Urine Bilirubin NEGATIVE Urine Urobilinogen 0.2 (NORMAL) Ur Leukocyte Esterase NEGATIVE Ur Microscopic Review NOT INDICATED Urine Culture Comments NOT INDICATED Urine HCG, Qual NEGATIVE PD MEDICAL DECISION MAKING - Sepsis Event Vital Signs: Vital Signs - 24 hr 01/11/18 01/11/18 08:43 10:25 Temperature 35.7 C L Heart Rate 92 75 Respiratory 20 16 Rate Blood Pressure 138/95 H 119/72 O2 Saturation 100 100 Oxygen O2 Source Room air Departure - Departure Disposition: 01 Home, Self Care Clinical Impression: Pelvic pain Condition: Good Instructions: ED Pelvic Pain [facility] Prescriptions: Cyclobenzaprine [Flexeril] 10 mg PO TID PRN #20 tablet PRN Reason: uterine cramps Ibuprofen [Motrin] 400 mg PO Q6H PRN #30 tablet PRN Reason: Pain Comments: The ER will call you if the cultures are positive Follow up with MAINTENANCE FOREMAN as scheduled Forms: Activity restrictions
[2018-01-11] MEDS ORDERED: KETOROLAC 60 MG/2 ML VIAL IVP STA (09:59)
[2018-01-11 10:28] VITALS: BP 119/72
== END 2018-01-11 11:19 | disposition home or self-care (01) ==
LOC: ED 08:37
DX: R10.2 Pelvic and perineal pain (principal)
CPT/HCPCS: 36415; 81001; 81003; 81025; 87086; 87491; 87591; 96374; 99283; 99284

== ENCOUNTER 2018-03-03 11:08 | Outpatient (CLI) | payer OTHER | END 2018-03-03 11:09 | disposition home or self-care (01) | LOC: LAB.R 11:08 | PROVIDERS: ATTEND Obstetrics & Gynecology | DX: Z11.3 Encounter for screening for infections with a predominantly sexual mode of transmission (principal) | CPT/HCPCS: 87491; 87591 ==

== ENCOUNTER 2018-04-06 15:22 | Outpatient (CLI) | payer OTHER ==
[2018-04-06 16:01] LABS: BASOPHILS % (AUTO) 0.6 %; EOSINOPHILS # (AUTO) 0.1 10^3/uL (0.0-0.7); EOSINOPHILS % (AUTO) 1.1 %; HGB - HEMOGLOBIN 11.4 g/dL (12.0-16.0); LYMPHOCYTES # (AUTO) 2.2 10^3/uL (1.5-3.5); LYMPHOCYTES % (AUTO) 31.5 %; MEAN CORPUSCULAR HEMOGLOBIN 32.4 pg (27.0-31.0); MEAN CORPUSCULAR HGB CONC 34.7 g/dL (32.0-36.0); MEAN CORPUSCULAR VOLUME 93.2 fL (81.0-99.0); MEAN PLATELET VOLUME 7.2 fL (7.9-10.8); MONOCYTES # (AUTO) 0.5 10^3/uL (0.0-1.0); MONOCYTES % (AUTO) 7.3 %; NEUTROPHILS # (AUTO) 4.2 10^3/uL (1.5-6.6); NEUTROPHILS % (AUTO) 59.5 %; PLT - PLATELET COUNT 262 10^3/uL (130-450); RED BLOOD COUNT 3.53 10^6/uL (4.20-5.40); RED CELL DISTRIBUTION WIDTH 13.2 % (12.0-15.0); WHITE BLOOD COUNT 7.1 x10^3/uL (4.8-10.8)
[2018-04-06 16:10] LABS: CALCIUM 9.1 mg/dL (8.5-10.3); CREATININE 0.7 mg/dL (0.4-1.0)
[2018-04-06 16:22] LABS: HCG UR QUAL NEGATIVE
== END 2018-04-06 15:23 | disposition home or self-care (01) ==
LOC: LAB 15:22
PROVIDERS: ATTEND Obstetrics & Gynecology
DX: Z01.812 Encounter for preprocedural laboratory examination (principal); N94.4 Primary dysmenorrhea; R10.2 Pelvic and perineal pain; N92.0 Excessive and frequent menstruation with regular cycle
CPT/HCPCS: 36415; 80048; 81025; 85025; 86850; 86900; 86901

== ENCOUNTER 2018-04-08 06:58 | Observation (INO) | payer OTHER ==
[2018-04-08] MEDS ORDERED: ceFAZolin 2 GM/50 ML 2 GM/50 ML BAG IV ONE (07:42)
[2018-04-08] MEDS ORDERED: LACTATED RINGERS 1,000 ML IV ONE ×4 (07:43→13:12)
--- NOTE | 2018-04-08 08:43 | ANESTHESIA ---
Pre-Anesthesia VS, & Labs - Diagnosis Menorrhagia, pelvic pain - Procedure Total laparoscopic hysterectomy, bilateral salpingectomy Vital Signs: Temp Pulse Resp BP Pulse Ox 36.6 C 76 20 138/78 H 100 04/08/18 07:51 04/08/18 07:51 04/08/18 07:51 04/08/18 07:51 04/08/18 07:51 Height 6 ft Weight (kg) 109.2 kg Body Mass Index 30.5 - NPO >8 hours - Is Patient ?: No - Lab Results Lab results reviewed: Yes Home Medications and Allergies Divalproex Sodium [Depakote] 500 mg PO BID 08/10/17 Allergies/Adverse Reactions: Allergies Allergy/AdvReac Type Severity Reaction Status Date / Time bupropion HCl * Allergy Rash Verified 01/11/18 08:47 [From Wellbutrin] lamotrigine [From Lamictal] Allergy Rash Verified 01/11/18 08:47 morphine Allergy Rash Verified 01/11/18 08:47 Anes History & Medical History - Anesthetic History Anesthesia Complications: reports: No previous complications Family history of Anesthesia Complications: Denies Family history of Malignant Hyperthermia: Denies - Medical History Cardiovascular: reports: None Pulmonary: reports: Asthma Gastrointestinal: reports: None Urinary: reports: None Neuro: reports: Migraines, Other (Concussion 3 years ago with seizures) Musculoskeletal: reports: None Endocrine/Autoimmune: reports: None Blood Disorders: reports: None Skin: reports: None Smoking Status: Current every day smoker Psychosocial: reports: No issues indicated - Surgical History General: Cholecystectomy, Appendectomy Gynecologic: Tubal ligation, LEEP (Cervical surgery) Exam General: Alert, Oriented x3, Cooperative Dental: WNL Mouth Opening: Greater than 4 Fingerbreadths Neck Mobility: Normal Mallampati classification: I Thyromental Distance: greater than 6 cm Respiratory: Lungs clear Cardiovascular: Regular rate Neurological: Normal speech Mental/Cognitive Status: Alert/Oriented X3 Cognitive Status: Within normal limits Plan Anesthesia Type: General Consent for Procedure(s) Verified and Reviewed: Yes Code Status: Attempt Resuscitation ASA classification: 2-Mild systemic disease Is this case an emergency?: No
[2018-04-08] MEDS ORDERED: BUPIVACAINE 0.25%-EPI 1:200000 PF 30 ML VIAL ONE (08:56)
[2018-04-08] MEDS ORDERED: BUPIVACAINE 0.25%-EPI 1:200000 PF 30 ML VIAL SUBQ ONE ×2 (10:13)
[2018-04-08] MEDS ORDERED: METHYLENE BLUE 0.5% 50 MG/10 ML AMPULE IVP ONE (12:00)
[2018-04-08] MEDS ORDERED: METHYLENE BLUE 0.5% 50 MG/10 ML AMPULE ONE (12:20)
[2018-04-08] MEDS ORDERED: DEXAMETHASONE 4 MG/ML VIAL IVP ONE (12:39)
[2018-04-08] MEDS ORDERED: GLYCOPYRROLATE 1 MG/5 ML VIAL IVP ONE (12:39)
[2018-04-08] MEDS ORDERED: fentaNYL 250 MCG/5 ML VIAL IVP ONE (12:39)
[2018-04-08] MEDS ORDERED: PROPOFOL 200 MG/20 ML VIAL IVP ONE (12:39)
[2018-04-08] MEDS ORDERED: MIDAZOLAM 2 MG/2 ML VIAL IVP ONE (12:39)
[2018-04-08] MEDS ORDERED: NEOSTIGMINE 1 MG/1 ML 10 ML MDV IVP ONE (12:39)
[2018-04-08] MEDS ORDERED: ROCURONIUM 50 MG/5 ML VIAL IVP ONE (12:39)
[2018-04-08] MEDS ORDERED: ONDANSETRON 4 MG/2 ML VIAL IVP ONE (12:39)
[2018-04-08] MEDS ORDERED: ONDANSETRON 4 MG/2 ML VIAL IVP PRN (12:40)
--- NOTE | 2018-04-08 12:46 | OPERATIVE REPORT ---
Operative Report - General Procedure Date: 04/08/18 Planned Procedure: LAVH BS, cysto Pre-Op Diagnosis: Menorrhagia, dysmenorrhea Procedure Performed: LAVH BS, cysto Post Op Diagnosis: Menorrhagia, dysmenorrhea - Procedure Note Primary Surgeon: Rick Jolly MD Secondary Surgeon: Rick Gongora MD Anesthesia Provider: Sherron Rivera CRNA Anesthesia Technique: General ET tube Pathology: Uterus with both tubes IV Fluids (mL): 2,500 Estimated Blood Loss (mL): 200 Urine Output (mL): 300 Complications: oozing from Depak[place] - Other Other Information/Narrative: Dictation # [id number]
[2018-04-08] MEDS ORDERED: KETOROLAC 15 MG/ML VIAL ONE (12:51)
[2018-04-08] MEDS: HYDROmorphone 1 MG/ML CARPUJECT ONE ×2 (12:52→12:57)
[2018-04-08] MEDS ORDERED: ACETAMINOPHEN 1,000 MG/100 ML 100 ML IV ONE (13:18)
[2018-04-08] MEDS: HYDROmorphone 0.5 MG/0.5 ML SYRINGE IVP PRN ×3 (13:25→18:18)
[2018-04-08] MEDS: ACETAMINOPHEN 500 MG TABLET PO SCH ×2 (14:28→21:00)
[2018-04-08] MEDS: LORazepam 2 MG/ML VIAL IVP PRN ×2 (14:28→16:42)
[2018-04-08] MEDS: oxyCODONE 5 MG TABLET PO PRN (15:38)
[2018-04-08] MEDS: DOCUSATE SODIUM 100 MG CAPSULE PO SCH (21:00)
[2018-04-08] MEDS: KETOROLAC 15 MG/ML VIAL IVP PRN (21:00)
[2018-04-08] MEDS: DIVALPROEX DR 250 MG TABLET PO SCH (21:00)
[2018-04-08] MEDS ORDERED: SODIUM CHLORIDE FLUSH 0.9% 10 ML SYRINGE ONE (21:19)
[2018-04-09] MEDS: oxyCODONE 5 MG TABLET PO PRN (00:59)
[2018-04-09] MEDS: HYDROmorphone 0.5 MG/0.5 ML SYRINGE IVP PRN ×2 (02:42→08:40)
[2018-04-09] MEDS ORDERED: SODIUM CHLORIDE FLUSH 0.9% 10 ML SYRINGE ONE ×3 (02:43→08:38)
[2018-04-09] MEDS: ACETAMINOPHEN 500 MG TABLET PO SCH (05:49)
[2018-04-09 06:10] LABS: BASOPHILS # (AUTO) 0.1 10^3/uL (0.0-0.1); BASOPHILS % (AUTO) 0.6 %; EOSINOPHILS % (AUTO) 0.1 %; HGB - HEMOGLOBIN 10.4 g/dL (12.0-16.0); LYMPHOCYTES # (AUTO) 2.1 10^3/uL (1.5-3.5); LYMPHOCYTES % (AUTO) 20.9 %; MEAN CORPUSCULAR HEMOGLOBIN 31.8 pg (27.0-31.0); MEAN CORPUSCULAR HGB CONC 33.2 g/dL (32.0-36.0); MEAN CORPUSCULAR VOLUME 95.6 fL (81.0-99.0); MEAN PLATELET VOLUME 7.2 fL (7.9-10.8); MONOCYTES # (AUTO) 0.6 10^3/uL (0.0-1.0); MONOCYTES % (AUTO) 5.5 %; NEUTROPHILS # (AUTO) 7.4 10^3/uL (1.5-6.6); NEUTROPHILS % (AUTO) 72.9 %; PLT - PLATELET COUNT 251 10^3/uL (130-450); RED BLOOD COUNT 3.29 10^6/uL (4.20-5.40); RED CELL DISTRIBUTION WIDTH 13.7 % (12.0-15.0); WHITE BLOOD COUNT 10.1 x10^3/uL (4.8-10.8)
[2018-04-09 07:37] VITALS: BP 130/68
[2018-04-09] MEDS: KETOROLAC 15 MG/ML VIAL IVP PRN (07:41)
[2018-04-09] MEDS: DIVALPROEX DR 250 MG TABLET PO SCH (08:18)
[2018-04-09] MEDS: DOCUSATE SODIUM 100 MG CAPSULE PO SCH (08:18)
[2018-04-09] MEDS ORDERED: NICOTINE 14 MG PATCH TOP SCH (09:00)
--- NOTE | 2018-04-15 12:47 | PROVIDER PROGRESS NOTE ---
Subjective - General Admit Date: 04/08/18 Procedure Date: 04/08/18 Post Op Days: 7 Procedure Performed: TLH with BS - Review of Systems Wound/Incisions: positive: Healing well Drain Type: none General: positive: No symptoms (adiquit pain control) Gastrointestinal: positive: No symptoms Genitourinary: positive: No symptoms Objective - Patient Data Reviewed Vital Signs: Yes - Lab Results Lab Results: 04/09/18 06:05 - Physical Exam Wound/Incisions: positive: Dressing dry and intact General Appearance: positive: No acute distress Respiratory: positive: Chest non-tender, No respiratory distress, Breath sounds nml Cardiovascular: positive: Regular rate & rhythm, No murmur, No gallop Abdomen: positive: Nml bowel sounds Back: negative: CVA tenderness (R), CVA tenderness (L) Neurologic/Psychiatric: positive: Oriented x3 Impression/Plan - Problem List Problem List: Late entry. Pt seen 04/09/18. at 0930 [facility] with BS for dysmenorrhea Discharge medication: Oxycodone 10 mg Motrin 800 mg Colace 100 mg RTC 1-2 weeks
== END 2018-04-09 08:55 | disposition home or self-care (01) ==
LOC: SDS 06:58 → MS2 12:41 → SDS 14:10 → UNDOFXSDCACCOM 17:48 → MS2 17:48 → UNDOFXSDCRRACCOM 17:48 → UNDOFXSDCSVC 17:48 → UNDOFXSDCRRACCOM 18:00 → UNDOFXSDCACCOM 18:00 → SDS 04-09 08:55 → MS2 04-09 08:55
PROVIDERS: ADMIT Obstetrics & Gynecology; ATTEND Obstetrics & Gynecology
PROC: 0UT74ZZ Resection of Bilateral Fallopian Tubes, Percutaneous Endoscopic Approach (ICD-10-PCS; 2018-04-08)
PROC: 0UT94ZZ Resection of Uterus, Percutaneous Endoscopic Approach (ICD-10-PCS; principal; 2018-04-08 08:15)
DX: R10.2 Pelvic and perineal pain (principal); N92.0 Excessive and frequent menstruation with regular cycle; N94.4 Primary dysmenorrhea; N94.10 Unspecified dyspareunia; F17.210 Nicotine dependence, cigarettes, uncomplicated
CPT/HCPCS: 36415; 58571; 85025; A9270; G0378; J0131; J0690; J1170; J2060; J3010; J7120

== ENCOUNTER 2018-04-10 13:30 | Emergency (ER) | payer OTHER ==
[2018-04-10 14:17] LABS: BASOPHILS # (AUTO) 0.1 10^3/uL (0.0-0.1); BASOPHILS % (AUTO) 0.8 %; EOSINOPHILS # (AUTO) 0.1 10^3/uL (0.0-0.7); EOSINOPHILS % (AUTO) 1.9 %; HGB - HEMOGLOBIN 11.3 g/dL (12.0-16.0); LYMPHOCYTES # (AUTO) 1.8 10^3/uL (1.5-3.5); LYMPHOCYTES % (AUTO) 25.6 %; MEAN CORPUSCULAR HEMOGLOBIN 32.7 pg (27.0-31.0); MEAN CORPUSCULAR HGB CONC 34.8 g/dL (32.0-36.0); MEAN PLATELET VOLUME 7.2 fL (7.9-10.8); MONOCYTES # (AUTO) 0.4 10^3/uL (0.0-1.0); NEUTROPHILS # (AUTO) 4.7 10^3/uL (1.5-6.6); NEUTROPHILS % (AUTO) 66.7 %; PLT - PLATELET COUNT 270 10^3/uL (130-450); RED BLOOD COUNT 3.45 10^6/uL (4.20-5.40); RED CELL DISTRIBUTION WIDTH 13.7 % (12.0-15.0); WHITE BLOOD COUNT 7.1 x10^3/uL (4.8-10.8)
[2018-04-10 14:29] LABS: ALBUMIN/GLOBULIN RATIO 1.2 (1.0-2.2); BILIRUBIN,TOTAL 0.6 mg/dL (0.2-1.0); CALCIUM 8.8 mg/dL (8.5-10.3); CREATININE 0.6 mg/dL (0.4-1.0); TOTAL PROTEIN 7.4 g/dL (6.7-8.2)
[2018-04-10 14:52] LABS: BILIRUBIN,URINE NEGATIVE (NEGATIVE); GLUCOSE, URINE (UA) NEGATIVE (NEGATIVE); KETONES,URINE (UA) 15 mg/dL (NEGATIVE); LEUKOCYTE ESTERASE, URINE NEGATIVE (NEGATIVE); NITRITE,URINE NEGATIVE (NEGATIVE); OCCULT BLOOD,URINE NEGATIVE (NEGATIVE); PROTEIN,URINE NEGATIVE (NEGATIVE); UROBILINOGEN,URINE 0.2 (NORMAL) E.U./dL (NORMAL)
[2018-04-10 14:53] LABS: CLARITY,URINE CLEAR (CLEAR)
[2018-04-10] MEDS ORDERED: HYDROmorphone 1 MG/ML CARPUJECT IVP STA (15:01)
--- NOTE | 2018-04-10 15:15 | ED Physician Documentation ---
History of Present Illness - Stated complaint Stated Complaint: POST SURGICAL COMPLICATIONS - Chief complaint Chief Complaint: Abd Pain - History obtained from History obtained from: Patient, Family - History of Present Illness Timing: How many days ago (2) Pain level max: 10 Pain level now: 10 - Additonal information Additional information: 27-year-old female status post abdominal hysterectomy 2 days ago. Pain uncontrolled at home. Talked to her surgeon who recommended coming here for evaluation. She has had no fevers. No vomiting. No diarrhea. Taking oxycodone at home without relief. Pain is mainly on the right side Worse with movement and palpation. Better with rest Review of Systems Ten Systems: 10 systems reviewed and negative Constitutional: denies: Fever, Chills, Myalgias Nose: denies: Rhinorrhea / runny nose, Congestion Throat: denies: Sore throat Cardiac: denies: Chest pain / pressure GI: denies: Vomiting Skin: denies: Rash Musculoskeletal: denies: Neck pain, Back pain Neurologic: denies: Headache PD PAST MEDICAL HISTORY - Past Medical History Past Medical History: Yes Cardiovascular: None Respiratory: Asthma Neuro: Migraines, Other (Concussion 3 years ago with seizures) Endocrine/Autoimmune: None GI: None MANAGER OF CARE: None : None HEENT: None Psych: Anxiety, Bipolar disorder Musculoskeletal: None Derm: None - Past Surgical History Past Surgical History: Yes General: Cholecystectomy, Appendectomy /MANAGER OF CARE: Tubal ligation, LEEP (Cervical surgery) - Present Medications Home Medications: Ambulatory Orders Medication Instructions Recorded Confirmed Divalproex Sodium [Depakote] 500 mg PO BID 08/10/17 04/08/18 Ondansetron [Zofran Odt] 8 mg PO Q6H PRN #20 tab.rapdis 09/02/17 04/08/18 Ondansetron Odt [Zofran] 4 mg TL Q6H PRN #10 tablet 10/17/17 04/08/18 Albuterol Sulfate [Proventil Hfa 1 - 2 puffs IH Q4H PRN #1 10/26/17 04/08/18 Inhaler] hfa.aer.ad Oxycodone HCl/Acetaminophen 1 - 2 tab PO Q4H PRN #15 tablet 10/26/17 04/08/18 [Percocet 5-325 mg Tablet] Ondansetron HCl [Zofran] 4 mg PO Q6H PRN #20 tablet 12/23/17 04/08/18 Ibuprofen [Motrin] 400 mg PO Q6H PRN #30 tablet 01/11/18 04/08/18 HYDROmorphone [Dilaudid] 2 - 4 mg PO Q4H PRN #14 tablet 04/10/18 Meloxicam [Mobic] 15 mg PO DAILY PRN #20 tablet 04/10/18 - Allergies Allergies/Adverse Reactions: Allergies Allergy/AdvReac Type Severity Reaction Status Date / Time bupropion HCl * Allergy Rash Verified 04/10/18 13:36 [From Wellbutrin] lamotrigine [From Lamictal] Allergy Rash Verified 04/10/18 13:36 morphine Allergy Rash Verified 04/10/18 13:36 - Social History Does the pt smoke?: Yes Smoking Status: Current every day smoker Does the pt drink ETOH?: No Does the pt have substance abuse?: No - Immunizations Immunizations are current?: No Immunizations: TDAP >10years/unknown, Other immun current - POLST Patient has POLST: No PD ED PE NORMAL - Vitals Vital signs reviewed: Yes - General General: Alert and oriented X 3, No acute distress, Well developed/nourished - HEENT HEENT: PERRL, Moist mucous membranes - Neck Neck: Supple, no meningeal sign - Cardiac Cardiac: RRR, Strong equal pulses - Respiratory Respiratory: No respiratory distress, Clear bilaterally - Abdomen Abdomen: Soft, Non distended, Other (Tender palpation right lower quadrant without peritoneal signs. Incisions are clean dry and intact without signs of infection) - Back Back: No CVA TTP, No spinal TTP - Derm Derm: Warm and dry, No rash - Extremities Extremities: No edema - Neuro Neuro: Alert and oriented X 3 - Psych Psych: Normal mood, Normal affect Results - Vitals Vitals: Vital Signs - 24 hr 04/10/18 04/10/18 13:33 15:53 Temperature 36.7 C 37.1 C Heart Rate 93 74 Respiratory 20 15 Rate Blood Pressure 144/92 H 125/73 O2 Saturation 100 100 Oxygen O2 Source Room air - Labs Labs: Laboratory Tests 04/10/18 04/10/18 04/10/18 14:13 14:13 14:35 WBC 7.1 RBC 3.45 L Hgb 11.3 L Hct 32.4 L MCV 94.0 MCH 32.7 H MCHC 34.8 RDW 13.7 Plt Count 270 MPV 7.2 L Neut # (Auto) 4.7 Lymph # (Auto) 1.8 [place] # (Auto) 0.4 Eos # (Auto) 0.1 Baso # (Auto) 0.1 Absolute Nucleated RBC 0.00 Nucleated RBC % 0.0 Sodium 139 Potassium 3.2 L Chloride 108 Carbon Dioxide 22 Anion Gap 9.0 BUN 7 Creatinine 0.6 Estimated GFR (MDRD) 118 Glucose 97 Calcium 8.8 Total Bilirubin 0.6 AST 15 ALT 17 Alkaline Phosphatase 57 Total Protein 7.4 Albumin 4.0 Globulin 3.4 Albumin/Globulin Ratio 1.2 Lipase 30 Urine Color YELLOW Urine Clarity CLEAR Urine pH 7.0 Ur Specific [place] 1.020 Urine Protein NEGATIVE Urine Glucose (UA) NEGATIVE Urine Ketones 15 H Urine Occult Blood NEGATIVE Urine Nitrite NEGATIVE Urine Bilirubin NEGATIVE Urine Urobilinogen 0.2 (NORMAL) Ur Leukocyte Esterase NEGATIVE Ur Microscopic Review NOT INDICATED Urine Culture Comments NOT INDICATED PD MEDICAL DECISION MAKING - ED course Complexity details: reviewed results, re-evaluated patient, considered differential, d/w patient, d/w family ED course: 27-year-old female status post abdominal hysterectomy 2 days ago, pain has increased at home. Given Dilaudid here and pain greatly improved. Discussed the case with Dr. Jolly, patient's surgeon who recommends increasing her pain medication for a few days and follow-up closely in the office. Given her afebrile status and normal lab values, will hold off imaging at this point. Patient is comfortable with this plan. Patient counseled regarding signs and symptoms for which I believe and urgent re-evaluation would be necessary. Patient with good understanding of and agreement to plan and is comfortable going home at this time This document was made in part using voice recognition software. While efforts are made to proofread this document, sound alike and grammatical errors may occur. Departure - Departure Disposition: 01 Home, Self Care Clinical Impression: Postoperative pain Condition: Good Instructions: ED Post Op Pain Follow-Up: Rick Jolly MD [Provider Admit Priv/Credential] - Within 1 week Prescriptions: HYDROmorphone [Dilaudid] 2 - 4 mg PO Q4H PRN #14 tablet PRN Reason: Abdominal Pain Meloxicam [Mobic] 15 mg PO DAILY PRN #20 tablet PRN Reason: pain Comments: We will try utilizing the hydromorphone for 1-2 days instead of the oxycodone and see if this controls her pain better. We will also try on meloxicam instead of the Motrin to help your stomach. Return if you worsen. Do not drink alcohol or drive while on narcotic pain medicine. Note that many narcotic pain relievers also contain tylenol/acetaminophen. Please ensure that your total dose of acetaminophen from all sources does not exceed 3 grams (3000mg) per day. You may constipated on this medication, take a stool softener such as "Colace" twice a day while you are on it. Also recommend a [id number] laxative such as senna or MiraLAX any day that you do not have a bowel movement. If you received narcotic pain medication in the emergency department, do not drive or operate machinery for the next 24 hours.
[2018-04-10 15:54] VITALS: BP 125/73
[2018-04-10] MEDS ORDERED: HYDROmorphone 2 MG TABLET PO STA (15:58)
== END 2018-04-10 16:12 | disposition home or self-care (01) ==
LOC: ED 13:30
DX: G89.18 Other acute postprocedural pain (principal); Z90.710 Acquired absence of both cervix and uterus; F17.200 Nicotine dependence, unspecified, uncomplicated
CPT/HCPCS: 36415; 80053; 81003; 83690; 85025; 96374; 99283; A9270; J1170; 81001; 87086

== ENCOUNTER 2018-04-12 04:22 | Emergency (ER) | payer OTHER ==
[2018-04-12 04:32] VITALS: BP 129/75
[2018-04-12] MEDS ORDERED: HYDROmorphone 2 MG/ML VIAL IVP STA (04:49)
[2018-04-12] MEDS ORDERED: PROCHLORPERAZINE 10 MG/2 ML VIAL IVP STA (04:49)
[2018-04-12] MEDS ORDERED: SODIUM CHLORIDE 0.9% 1,000 ML IV ONE (04:49)
[2018-04-12] MEDS ORDERED: KETOROLAC 15 MG/ML VIAL IVP STA (04:49)
[2018-04-12] MEDS ORDERED: HYDROmorphone 1 MG/ML CARPUJECT IVP STA (05:28)
--- NOTE | 2018-04-12 05:56 | ED Physician Documentation ---
PD HPI ABD PAIN - Stated complaint Stated Complaint: FALL - Chief complaint Chief Complaint: Abd Pain - History obtained from History obtained from: Patient - History of Present Illness Timing - onset: How many days ago (3) Timing - duration: Days (3 days of pain after hysterectomy on and has had post op pain since that day. Seen here in ED yesterday for the pain and given oral Dilaudid instead of the oxycodone. She says she was getting nauseated with the oral Dilaudid, so would prefer the oxycodone. She says she tripped over house pet and had worsening of the lower abd as she twisted quickly.) Timing - details: Waxing and waning Quality: Cramping, Aching, Pain Location: RLQ Radiation: Lower back. No: Chest Improved by: Position. No: Eating Worsened by: Breathing, Position, Palpation. No: Eating Associated symptoms: Nausea. No: Fever, Vomiting, Diarrhea, Hematochezia Review of Systems Constitutional: denies: Fever, Chills, Myalgias Nose: denies: Rhinorrhea / runny nose, Congestion Throat: denies: Sore throat Cardiac: denies: Chest pain / pressure, Palpitations Respiratory: denies: Dyspnea, Cough GI: reports: Abdominal Pain, Nausea, Constipation. denies: Vomiting, Diarrhea : denies: Dysuria, Frequency Skin: denies: Rash, Lesions PD PAST MEDICAL HISTORY - Past Medical History Past Medical History: Yes Cardiovascular: None Respiratory: Asthma Neuro: Migraines, Other Endocrine/Autoimmune: None GI: None R D INTERNSHIP: Fibroids : None HEENT: None Psych: Anxiety, Bipolar disorder Musculoskeletal: None Derm: None - Past Surgical History Past Surgical History: Yes General: Cholecystectomy, Appendectomy /R D INTERNSHIP: Tubal ligation, LEEP (Cervical surgery) - Present Medications Home Medications: Ambulatory Orders Medication Instructions Recorded Confirmed Divalproex Sodium [Depakote] 500 mg PO BID 08/10/17 04/08/18 Albuterol Sulfate [Proventil Hfa 1 - 2 puffs IH Q4H PRN #1 10/26/17 04/08/18 Inhaler] hfa.aer.ad Ondansetron HCl [Zofran] 4 mg PO Q6H PRN #20 tablet 12/23/17 04/08/18 HYDROmorphone [Dilaudid] 2 mg PO Q4H 04/12/18 04/12/18 Oxycodone HCl 10 mg PO Q6HR PRN #20 tablet 04/12/18 Promethazine [Phenergan] 25 mg PO Q6H PRN #10 tab 04/12/18 - Allergies Allergies/Adverse Reactions: Allergies Allergy/AdvReac Type Severity Reaction Status Date / Time bupropion HCl * Allergy Rash Verified 04/12/18 04:32 [From Wellbutrin] lamotrigine [From Lamictal] Allergy Rash Verified 04/12/18 04:32 morphine Allergy Rash Verified 04/12/18 04:32 - Social History Does the pt smoke?: Yes Smoking Status: Current every day smoker Does the pt drink ETOH?: No Does the pt have substance abuse?: No - Immunizations Immunizations are current?: No Immunizations: TDAP >10years/unknown, Other immun current - POLST Patient has POLST: No PD ED PE NORMAL - Vitals Vital signs reviewed: Yes - General General: Alert and oriented X 3, Well developed/nourished, Other (appears in pain, holding lower abd/especially RLQ. ) - HEENT HEENT: Pharynx benign - Neck Neck: Supple, no meningeal sign, No adenopathy - Cardiac Cardiac: RRR, No murmur - Respiratory Respiratory: Clear bilaterally - Abdomen Abdomen: Normal bowel sounds, Soft, Non distended, No organomegaly, Other (tender lower abd right more than left, with local guarding, but no percussion nor rebound tednerness. ) - Female Female : Deferred - Rectal Rectal: Deferred - Back Back: No spinal TTP - Extremities Extremities: Normal ROM s pain, No edema, No calf tenderness / cord - Neuro Neuro: Alert and oriented X 3, No motor deficit, Normal speech Results - Vitals Vitals: Vital Signs - 24 hr 04/12/18 04/12/18 04:29 05:42 Temperature 36.6 C Heart Rate 79 70 Respiratory 22 Rate Blood Pressure 129/75 O2 Saturation 100 100 Oxygen O2 Source Room air PD MEDICAL DECISION MAKING - ED course Complexity details: reviewed results, re-evaluated patient (pain improved well with IV dosing. ), considered differential, d/w patient Departure - Departure Disposition: 01 Home, Self Care Clinical Impression: Post-operative pain Condition: Stable Record reviewed to determine appropriate education?: Yes Instructions: Abdominal Pain Follow-Up: JOSEPHINE JACOBO [Primary Care Provider] - Rick Jolly MD [Provider Admit Priv/Credential] - Prescriptions: Oxycodone HCl 10 mg PO Q6HR PRN #20 tablet PRN Reason: Pain Promethazine [Phenergan] 25 mg PO Q6H PRN #10 tab PRN Reason: Nausea / Vomiting Comments: Frequent fluids and stay well-hydrated. Continue the meloxicam anti- inflammatory. Tylenol every 6 hours for the next several days. To that add oxycodone as needed for pain. Be aware that I am prescribing 10 mg tablets so you want to take just one at a time every 6 hours as needed. You can use ondansetron that you have for nausea, or use promethazine instead. Follow-up with Dr. Thompson as scheduled. Discharge Date/Time: 04/12/18 06:16
== END 2018-04-12 06:16 | disposition home or self-care (01) ==
LOC: ED 04:22
DX: G89.18 Other acute postprocedural pain (principal); F17.200 Nicotine dependence, unspecified, uncomplicated
CPT/HCPCS: 96361; 96374; 96376; 99283; J1170

== ENCOUNTER 2018-04-24 22:00 | Outpatient (CLI) | payer OTHER ==
--- NOTE | 2018-04-24 23:23 | Ultrasound Report ---
Reason: SIGNS OF ABDOMINAL WALL HERNIA; LOOK FOR INCISIONLA HERNIA. Procedure Date: 04/24/2018 Accession Number: [id number] / [id number] Procedure: US - Abdomen Limited CPT Code: FULL RESULT: EXAM: ABDOMEN ULTRASOUND LIMITED, RUQ EXAM DATE: 04/24/2018 10:32 PM. CLINICAL HISTORY: SIGNS OF ABDOMINAL WALL HERNIA; LOOK FOR INCISIONLA HERNIA. COMPARISON: None. TECHNIQUE: Real-time scanning was performed with static images obtained. FINDINGS: Right lower quadrant abdominal wall demonstrates no evidence for incisional hernia. Right ovary appears grossly unremarkable. IMPRESSION: No evidence for abdominal wall hernia in the right lower quadrant. RADIA
== END 2018-04-24 22:01 | disposition home or self-care (01) ==
LOC: DI 22:00
PROVIDERS: ATTEND Obstetrics & Gynecology
DX: N80.0 Endometriosis of uterus (principal)
CPT/HCPCS: 76705

== ENCOUNTER 2018-04-27 17:10 | Emergency (ER) | payer OTHER ==
[2018-04-27 18:06] LABS: HCG UR QUAL NEGATIVE
[2018-04-27 18:26] LABS: BASOPHILS # (AUTO) 0.1 10^3/uL (0.0-0.1); BASOPHILS % (AUTO) 0.6 %; EOSINOPHILS # (AUTO) 0.3 10^3/uL (0.0-0.7); EOSINOPHILS % (AUTO) 2.8 %; HGB - HEMOGLOBIN 11.5 g/dL (12.0-16.0); LYMPHOCYTES # (AUTO) 3.3 10^3/uL (1.5-3.5); LYMPHOCYTES % (AUTO) 33.8 %; MEAN CORPUSCULAR HEMOGLOBIN 31.6 pg (27.0-31.0); MEAN CORPUSCULAR HGB CONC 33.1 g/dL (32.0-36.0); MEAN CORPUSCULAR VOLUME 95.5 fL (81.0-99.0); MEAN PLATELET VOLUME 7.3 fL (7.9-10.8); MONOCYTES # (AUTO) 0.6 10^3/uL (0.0-1.0); MONOCYTES % (AUTO) 5.8 %; NEUTROPHILS # (AUTO) 5.6 10^3/uL (1.5-6.6); PLT - PLATELET COUNT 319 10^3/uL (130-450); RED BLOOD COUNT 3.63 10^6/uL (4.20-5.40); RED CELL DISTRIBUTION WIDTH 13.8 % (12.0-15.0); WHITE BLOOD COUNT 9.9 x10^3/uL (4.8-10.8)
[2018-04-27 18:28] LABS: ALBUMIN 4.1 g/dL (3.2-5.5); ALBUMIN/GLOBULIN RATIO 1.2 (1.0-2.2); ALKALINE PHOSPHATASE 80 IU/L (42-121); ALT ALANINE AMINOTRANSFERASE 24 IU/L (10-60); AST ASPARTATE AMINOTRANSFERASE 18 IU/L (10-42); BILIRUBIN,TOTAL < 0.2 mg/dL (0.2-1.0); BUN - BLOOD UREA NITROGEN 16 mg/dL (6-20); CALCIUM 9.1 mg/dL (8.5-10.3); CARBON DIOXIDE - CO2 25 mmol/L (21-32); CHLORIDE 106 mmol/L (101-111); CREATININE 0.7 mg/dL (0.4-1.0); GFR - MDRD 99 (>89); GLUCOSE 92 mg/dL (70-100); LIPASE 32 U/L (22-51); SODIUM 137 mmol/L (135-145); TOTAL PROTEIN 7.5 g/dL (6.7-8.2)
[2018-04-27 19:47] LABS: BILIRUBIN,URINE NEGATIVE (NEGATIVE); CLARITY,URINE CLEAR (CLEAR); GLUCOSE, URINE (UA) NEGATIVE (NEGATIVE); KETONES,URINE (UA) NEGATIVE (NEGATIVE); LEUKOCYTE ESTERASE, URINE NEGATIVE (NEGATIVE); NITRITE,URINE NEGATIVE (NEGATIVE); OCCULT BLOOD,URINE TRACE-INTACT (NEGATIVE); PROTEIN,URINE NEGATIVE (NEGATIVE); UROBILINOGEN,URINE 0.2 (NORMAL) E.U./dL (NORMAL)
[2018-04-27] MEDS ORDERED: oxyCODONE 5 MG TABLET PO STA (21:45)
[2018-04-27] MEDS ORDERED: PROMETHAZINE 25 MG SUPP PR STA (21:45)
--- NOTE | 2018-04-27 22:25 | Ultrasound Report ---
Reason: pelvic pain, Lt, vag bleeding, s/p hysterectomy Procedure Date: 04/27/2018 Accession Number: [id number] / [id number] Procedure: US - Pelvic w/Transvag+Doppler Comp CPT Code: FULL RESULT: EXAM: PELVIC ULTRASOUND EXAM DATE: 04/27/2018 09:10 PM. CLINICAL HISTORY: Pelvic pain, Lt, vag bleeding, s/p hysterectomy. COMPARISON: PEL NON OB W/TV DOP LTD 12/23/2017 4:20 PM. TECHNIQUE: Realtime transabdominal pelvic scan performed for overall evaluation, followed by transvaginal scan to provide greater detail, with static image documentation. FINDINGS: Uterus: Surgically absent. Right Ovary: Not seen due to bowel gas. Small amount of fluid in the right adnexa. Left Ovary: Poorly seen due to bowel gas and pain. Possible enlarged ovary measuring 4.1 x 3.9 x 5.6 cm, volume 46.6 cc. Blood flow not well seen. Free Fluid: Right adnexa. Other: None. IMPRESSION: 1. Uterus is absent. 2. Right ovary not seen due to bowel gas. Small amount of fluid in the right adnexa. 3. Left ovary not well seen due to bowel gas and patient pain, possibly enlarged at 46.6 cm. 4. Left ovarian blood flow not well assessed. This could be due to technical factors. RADIA ADDENDUM: 04/27/18 23:25 Correction: IMPRESSION: 3. Left ovary not well seen due to bowel gas and patient pain, possibly enlarged at 46 CC.
[2018-04-27] MEDS ORDERED: HYDROmorphone 1 MG/ML CARPUJECT IVP STA (22:38)
[2018-04-27] MEDS ORDERED: IOVERSOL 320 100 ML VIAL IVP ONE (22:55)
--- NOTE | 2018-04-27 23:32 | CT Report ---
Reason: LLQ abd pain, equivocal US, enlarged Lt ovary Procedure Date: 04/27/2018 Accession Number: [id number] / [id number] Procedure: CT - Abdomen/Pelvis W/ CPT Code: FULL RESULT: EXAM: CT ABDOMEN AND PELVIS EXAM DATE: 04/27/2018 11:09 PM. CLINICAL HISTORY: LLQ abd pain, equivocal US, enlarged Lt ovary. COMPARISONS: ABDOMEN/PELVIS W/O 08/28/2014 8:03 PM. Ultrasound, 04/27/2018. TECHNIQUE: Routine helical CT imaging was performed through the abdomen and pelvis. IV contrast: OPTI 320 100mL. Enteric contrast: No. Reconstructions: Coronal and sagittal. In accordance with CT protocol optimization, one or more of the following dose reduction techniques were utilized for this exam: automated exposure control, adjustment of mA and/or KV based on patient size, or use of iterative reconstructive technique. FINDINGS: Lung Bases: Unremarkable. Liver: Possible fatty infiltration. Gallbladder/Bile Ducts: Status post cholecystectomy. Spleen: Normal. Pancreas: Normal. Adrenal Glands: Normal. Kidneys: Normal. No masses or hydronephrosis. Peritoneal Cavity/Bowel: No bowel obstruction seen. Moderate stool in the colon. No diverticulitis. No free air. Trace amount of free fluid. No lymphadenopathy. Appendix is not seen. Possible appendectomy. Pelvic Organs: Uterus is surgically absent. Right ovary appears normal. Enlarged left ovary measuring 4.6 x 4.5 cm with cyst measuring 3.7 cm. Vasculature: No aneurysms or other significant abnormality. Bones: No significant abnormality. Other: None. IMPRESSION: 1. Enlarged left ovary measuring 4.6 x 4.5 cm with cyst measuring 3.7 cm. 2. Status post hysterectomy. Trace amount of free fluid in the pelvis. 3. Possible fatty liver. 4. Moderate stool in the colon. RADIA
[2018-04-27] MEDS ORDERED: SODIUM CHLORIDE 0.9% 1,000 ML IV ONE (23:51)
--- NOTE | 2018-04-28 00:51 | PROVIDER PROGRESS NOTE ---
Subjective - Prog Note Date Prog Note Date: 04/28/18 Prog Note Time: 00:45 - Subjective Subjective: Mrs Sow is a 27 yo W women that underwent LVH w Bilat Salphingectomy om 04/08/2018 and reports 6/10 sharp LLQ pain after lifting a box. She has chronic nausea but no emesis. Last BM in the morning. Small amount of vaginal bleeding. No fever or chills. Mrs. Sow had been seen on 3 prior occasions for laparoscopic wound complaints, mostly pain from thet right lower quadrant insertion port. There have never been seen signs of infection. This right- sided pain has spontaneously improved. She has had prior bouts of vaginal spotting but no argenis bleeding. She has chronic nausea. She reports no emesis, UTI sx, uncontrolled pain, or lower limb complaints. She is able to walk and do most self-care functions. She has had a bowel movement within the last 24 hours which is been described as brown and normal without blood streaking. Dr. Gamble requested evaluation and help with the management of pain particularly in relationship to recent surgery. Prior to evaluating the patient I reviewed the ultrasound and CT scan reports/films. And discussed case briefly with the Dr. Gamble and the proceeding emergency room physician. I reviewed the imaging results with the patient and discussed differential diagnosis. She was advised that a short period of observation may be required to delineate the diagnosis and treatment. After discussion with her patient declined. Objective - Vital Signs/Intake & Output Vital Signs: Vital Signs x48h Temp Pulse Resp BP Pulse Ox 04/27/18 23:32 78 16 115/65 99 04/27/18 22:38 88 18 124/82 H 100 04/27/18 18:59 99 22 142/110 H 100 04/27/18 17:13 97.7 F 110 H 18 125/101 H 99 - Lab Results Fish Bones: 04/27/18 18:00 04/27/18 18:00 Other Labs: Lab Results x24hrs 04/27/18 04/27/18 04/27/18 Range/Units 18:00 18:00 17:50 WBC 9.9 (4.8-10.8) x10^3/uL RBC 3.63 L (4.20-5.40) 10^6/uL Hgb 11.5 L (12.0-16.0) g/dL Hct 34.6 L (37.0-47.0) % MCV 95.5 (81.0-99.0) fL MCH 31.6 H (27.0-31.0) pg MCHC 33.1 (32.0-36.0) g/dL RDW 13.8 (12.0-15.0) % Plt Count 319 (130-450) 10^3/uL MPV 7.3 L (7.9-10.8) fL Neut # (Auto) 5.6 (1.5-6.6) 10^3/uL Lymph # (Auto) 3.3 (1.5-3.5) 10^3/uL [place] # (Auto) 0.6 (0.0-1.0) 10^3/uL Eos # (Auto) 0.3 (0.0-0.7) 10^3/uL Baso # (Auto) 0.1 (0.0-0.1) 10^3/uL Absolute Nucleated RBC 0.00 x10^3/uL Nucleated RBC % 0.0 /100WBC Sodium 137 (135-145) mmol/L Potassium 3.7 (3.5-5.0) mmol/L Chloride 106 (101-111) mmol/L Carbon Dioxide 25 (21-32) mmol/L Anion Gap 6.0 (6-13) BUN 16 (6-20) mg/dL Creatinine 0.7 (0.4-1.0) mg/dL Estimated GFR (MDRD) 99 (>89) Glucose 92 (70-100) mg/dL Calcium 9.1 (8.5-10.3) mg/dL Total Bilirubin < 0.2 L (0.2-1.0) mg/dL AST 18 (10-42) IU/L ALT 24 (10-60) IU/L Alkaline Phosphatase 80 (42-121) IU/L Total Protein 7.5 (6.7-8.2) g/dL Albumin 4.1 (3.2-5.5) g/dL Globulin 3.4 (2.1-4.2) g/dL Albumin/Globulin Ratio 1.2 (1.0-2.2) Lipase 32 (22-51) U/L Urine Color YELLOW Urine Clarity CLEAR (CLEAR) Urine pH 6.0 (5.0-7.5) PH Ur Specific [place] >=1.030 H (1.002-1.030) Urine Protein NEGATIVE (NEGATIVE) mg/dL Urine Glucose (UA) NEGATIVE (NEGATIVE) mg/dL Urine Ketones NEGATIVE (NEGATIVE) mg/dL Urine Occult Blood TRACE-INTACT (NEGATIVE) Urine Nitrite NEGATIVE (NEGATIVE) Urine Bilirubin NEGATIVE (NEGATIVE) Urine Urobilinogen 0.2 (NORMAL) (NORMAL) E.U./dL Ur Leukocyte Esterase NEGATIVE (NEGATIVE) Ur Microscopic Review NOT INDICATED Urine Culture Comments NOT INDICATED Urine HCG, Qual 04/27/18 Range/Units 17:50 WBC (4.8-10.8) x10^3/uL RBC (4.20-5.40) 10^6/uL Hgb (12.0-16.0) g/dL Hct (37.0-47.0) % MCV (81.0-99.0) fL MCH (27.0-31.0) pg MCHC (32.0-36.0) g/dL RDW (12.0-15.0) % Plt Count (130-450) 10^3/uL MPV (7.9-10.8) fL Neut # (Auto) (1.5-6.6) 10^3/uL Lymph # (Auto) (1.5-3.5) 10^3/uL [place] # (Auto) (0.0-1.0) 10^3/uL Eos # (Auto) (0.0-0.7) 10^3/uL Baso # (Auto) (0.0-0.1) 10^3/uL Absolute Nucleated RBC x10^3/uL Nucleated RBC % /100WBC Sodium (135-145) mmol/L Potassium (3.5-5.0) mmol/L Chloride (101-111) mmol/L Carbon Dioxide (21-32) mmol/L Anion Gap (6-13) BUN (6-20) mg/dL Creatinine (0.4-1.0) mg/dL Estimated GFR (MDRD) (>89) Glucose (70-100) mg/dL Calcium (8.5-10.3) mg/dL Total Bilirubin (0.2-1.0) mg/dL AST (10-42) IU/L ALT (10-60) IU/L Alkaline Phosphatase (42-121) IU/L Total Protein (6.7-8.2) g/dL Albumin (3.2-5.5) g/dL Globulin (2.1-4.2) g/dL Albumin/Globulin Ratio (1.0-2.2) Lipase (22-51) U/L Urine Color Urine Clarity (CLEAR) Urine pH (5.0-7.5) PH Ur Specific [place] >=1.030 H (1.002-1.030) Urine Protein (NEGATIVE) mg/dL Urine Glucose (UA) (NEGATIVE) mg/dL Urine Ketones (NEGATIVE) mg/dL Urine Occult Blood (NEGATIVE) Urine Nitrite (NEGATIVE) Urine Bilirubin (NEGATIVE) Urine Urobilinogen (NORMAL) E.U./dL Ur Leukocyte Esterase (NEGATIVE) Ur Microscopic Review Urine Culture Comments Urine HCG, Qual NEGATIVE Physical Exam - Physical Exam General: positive: Anxious, Alert HEENT: positive: Moist mucous membranes Neck: positive: Supple w/out meningeal sx, Thyroid normal Abdomen: positive: Normal Bowel sounds, Other (Grade 1/3 LLQ tenderness without rebound, nondistended.Truncal obesity) Female : positive: Normal external, Adnexal Tenderness (mild left adenexal tenderness, L fullness), [employer]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 Exam does not exhibit peritoneal signs and therefore do not require immediate surgery but close observation reccommended. There is no evidence of wound infection or herniation. One would expect more left adnexal tenderness if indeed torsed ovary existed. Other possibilities include small hematoma / seroma which subsequently drained, or ovarian cyst, index of susp icion is not high enough to justify immediate surgery. Patient's anxiety about hospital setting prompts her to decline formal observation. She does have reliable transportation and her is available for close observation. Home bed rest with serial temperature measurements and monitoring of pain would be a substitute. Strongly recommend formal reevaluation either in the office or ER in 12 hours. Plan: 1. Offered in hospital observation but declined. She states her anxiety is high and she would rather go home. 2. Patient pledges to return in 12 H for re evaluation either in ER or [facility] 3. Warning signs reviewed 4. Dr. Jolly informed of the ER visit and findings. He will make himself available in the office for her reevaluation today.
[2018-04-28] MEDS ORDERED: HYDROmorphone 2 MG/ML VIAL IM STA (01:02)
[2018-04-28] MEDS ORDERED: HYDROmorphone 2 MG/ML VIAL ONE (01:13)
[2018-04-28 01:17] VITALS: BP 118/69
[2018-04-28] MEDS ORDERED: IOVERSOL 320 100 ML VIAL IVP ONE (05:05)
--- NOTE | 2018-04-28 12:26 | ED Physician Documentation ---
PD HPI FEMALE - Stated complaint Stated Complaint: POST OP/ FEM BLEEDING - Chief complaint Chief Complaint: Abd Pain - History obtained from History obtained from: Patient - History of Present Illness Timing - onset: How many hours ago (8) Timing - duration: Hours (8) Timing - details: Abrupt onset Pain level max: 10 Pain level max: 10 Severity Comments: Severe Associated symptoms: Abdominal pain Contributing factors: Hysterectomy OB-OBSTETRICS TECH History: Hysterectomy Review of Systems Ten Systems: 10 systems reviewed and negative Constitutional: reports: Reviewed and negative Eyes: reports: Reviewed and negative Ears: reports: Reviewed and negative Nose: reports: Reviewed and negative Throat: reports: Reviewed and negative Cardiac: reports: Reviewed and negative Respiratory: reports: Reviewed and negative GI: reports: Reviewed and negative : reports: Reviewed and negative Skin: reports: Reviewed and negative Musculoskeletal: reports: Reviewed and negative Neurologic: reports: Reviewed and negative Psychiatric: reports: Reviewed and negative Endocrine: reports: Reviewed and negative Immunocompromised: reports: Reviewed and negative PD PAST MEDICAL HISTORY - Past Medical History Cardiovascular: None Respiratory: Asthma Neuro: Migraines, Other Endocrine/Autoimmune: None GI: None OBSTETRICS TECH: Fibroids : None HEENT: None Psych: Anxiety, Bipolar disorder Musculoskeletal: None Derm: None - Past Surgical History Past Surgical History: Yes General: Cholecystectomy, Appendectomy /OBSTETRICS TECH: Tubal ligation, Hysterectomy, LEEP (Cervical surgery) - Present Medications Home Medications: Ambulatory Orders Medication Instructions Recorded Confirmed Divalproex Sodium [Depakote] 500 mg PO BID 08/10/17 04/08/18 Albuterol Sulfate [Proventil Hfa 1 - 2 puffs IH Q4H PRN #1 10/26/17 04/08/18 Inhaler] [email or web address] Ondansetron HCl [Zofran] 4 mg PO Q6H PRN #20 tablet 12/23/17 04/08/18 HYDROmorphone [Dilaudid] 2 mg PO Q4H 04/12/18 04/12/18 Oxycodone HCl 10 mg PO Q6HR PRN #20 tablet 04/12/18 Promethazine [Phenergan] 25 mg PO Q6H PRN #10 tab 04/12/18 - Allergies Allergies/Adverse Reactions: Allergies Allergy/AdvReac Type Severity Reaction Status Date / Time bupropion HCl * Allergy Rash Verified 04/12/18 04:32 [From Wellbutrin] lamotrigine [From Lamictal] Allergy Rash Verified 04/12/18 04:32 morphine Allergy Rash Verified 04/12/18 04:32 - Social History Does the pt smoke?: Yes Smoking Status: Current every day smoker Does the pt drink ETOH?: No Does the pt have substance abuse?: No - Family History Family history: reports: Other (Reviewed and not pertinent) - Immunizations Immunizations are current?: No Immunizations: TDAP >10years/unknown, Other immun current - POLST Patient has POLST: No PD ED PE NORMAL - Vitals Vital signs reviewed: Yes - General General: Alert and oriented X 3, No acute distress - HEENT HEENT: PERRL - Neck Neck: Supple, no meningeal sign - Cardiac Cardiac: RRR, No murmur - Respiratory Respiratory: Clear bilaterally - Abdomen Abdomen: Normal bowel sounds, Soft, Non distended, Other (LLQ tenderness w guarding) - Female Female : Deferred - Derm Derm: Warm and dry - Extremities Extremities: No deformity - Neuro Neuro: Alert and oriented X 3 - Psych Psych: Normal mood, Normal affect Results - Vitals Vitals: Vital Signs - 24 hr 04/27/18 04/27/18 04/27/18 17:13 18:59 22:38 Temperature 36.5 C Heart Rate 110 H 99 88 Respiratory 18 22 18 Rate Blood Pressure 125/101 H 142/110 H 124/82 H O2 Saturation 99 100 100 04/27/18 04/28/18 23:32 01:15 Temperature Heart Rate 78 72 Respiratory 16 16 Rate Blood Pressure 115/65 118/69 O2 Saturation 99 99 Oxygen O2 Source Room air - Labs Labs: Laboratory Tests 04/27/18 04/27/18 04/27/18 17:50 17:50 18:00 WBC 9.9 RBC 3.63 L Hgb 11.5 L Hct 34.6 L MCV 95.5 MCH 31.6 H MCHC 33.1 RDW 13.8 Plt Count 319 MPV 7.3 L Neut # (Auto) 5.6 Lymph # (Auto) 3.3 [place] # (Auto) 0.6 Eos # (Auto) 0.3 Baso # (Auto) 0.1 Absolute Nucleated RBC 0.00 Nucleated RBC % 0.0 Sodium Potassium Chloride Carbon Dioxide Anion Gap BUN Creatinine Estimated GFR (MDRD) Glucose Calcium Total Bilirubin AST ALT Alkaline Phosphatase Total Protein Albumin Globulin Albumin/Globulin Ratio Lipase Urine Color YELLOW Urine Clarity CLEAR Urine pH 6.0 Ur Specific [place] >=1.030 H >=1.030 H Urine Protein NEGATIVE Urine Glucose (UA) NEGATIVE Urine Ketones NEGATIVE Urine Occult Blood TRACE-INTACT Urine Nitrite NEGATIVE Urine Bilirubin NEGATIVE Urine Urobilinogen 0.2 (NORMAL) Ur Leukocyte Esterase NEGATIVE Ur Microscopic Review NOT INDICATED Urine Culture Comments NOT INDICATED Urine HCG, Qual NEGATIVE 04/27/18 18:00 WBC RBC Hgb Hct MCV MCH MCHC RDW Plt Count MPV Neut # (Auto) Lymph # (Auto) [place] # (Auto) Eos # (Auto) Baso # (Auto) Absolute Nucleated RBC Nucleated RBC % Sodium 137 Potassium 3.7 Chloride 106 Carbon Dioxide 25 Anion Gap 6.0 BUN 16 Creatinine 0.7 Estimated GFR (MDRD) 99 Glucose 92 Calcium 9.1 Total Bilirubin < 0.2 L AST 18 ALT 24 Alkaline Phosphatase 80 Total Protein 7.5 Albumin 4.1 Globulin 3.4 Albumin/Globulin Ratio 1.2 Lipase 32 Urine Color Urine Clarity Urine pH Ur Specific [place] Urine Protein Urine Glucose (UA) Urine Ketones Urine Occult Blood Urine Nitrite Urine Bilirubin Urine Urobilinogen Ur Leukocyte Esterase Ur Microscopic Review Urine Culture Comments Urine HCG, Qual - Rads (name of study) Pelvic US Radiology: Final report received (Lt ovary enlarged w no visualized flow, obscured by bowel gas) CT Abd Radiology: Final report received (Left ovary enlarged w cyst) PD MEDICAL DECISION MAKING - ED course ED course: 27-year-old female 6 weeks status post hysterectomy presents with sudden onset left lower quadrant abdominal pain. Vitals notable for tachycardia. Exam notable for left lower quadrant tenderness with guarding. Labs unremarkable. Pelvic ultrasound shows no flow in the left ovary but the view is obscured by bowel gas. Left ovary is enlarged. Patient states she does not have a history of an enlarged left ovary. CT scan with contrast shows enlarged left ovary with ovarian cyst. OB air quality consultant Dr. Gongora was consulted due to concern for ovarian torsion. Dr. Roth evaluation was pending at time of sign out to incoming provider. Departure - Departure Disposition: 01 Home, Self Care Clinical Impression: Pelvic pain Abdominal pain Qualifiers: Abdominal location: left lower quadrant Qualified Code(s): R10.32 - Left lower quadrant pain Condition: Good Instructions: ED Pelvic Pain [facility] Follow-Up: Rick Gongora MD [Provider Admit Priv/Credential] - Rick Jolly MD [Provider Admit Priv/Credential] - Discharge Date/Time: 04/28/18 01:17
== END 2018-04-28 01:17 | disposition home or self-care (01) ==
LOC: ED 17:10
DX: R10.2 Pelvic and perineal pain (principal); R10.32 Left lower quadrant pain; N83.202 Unspecified ovarian cyst, left side; Z90.710 Acquired absence of both cervix and uterus; F17.200 Nicotine dependence, unspecified, uncomplicated
CPT/HCPCS: 36415; 74177; 76830; 76856; 80053; 81003; 81025; 83690; 85025; 93975; 96361; 96372; 96374; 99283; 99284; A9270; J1170; J8498; Q9967; 81001; 87086

== ENCOUNTER 2018-04-29 10:47 | Emergency (ER) | payer OTHER ==
[2018-04-29] MEDS ORDERED: SODIUM CHLORIDE 0.9% 1,000 ML IV ONE ×3 (10:55→12:18)
[2018-04-29 11:09] LABS: BILIRUBIN,URINE NEGATIVE (NEGATIVE); GLUCOSE, URINE (UA) NEGATIVE (NEGATIVE); KETONES,URINE (UA) NEGATIVE (NEGATIVE); LEUKOCYTE ESTERASE, URINE TRACE (NEGATIVE); NITRITE,URINE NEGATIVE (NEGATIVE); OCCULT BLOOD,URINE NEGATIVE (NEGATIVE); PROTEIN,URINE NEGATIVE (NEGATIVE); UROBILINOGEN,URINE 0.2 (NORMAL) E.U./dL (NORMAL)
[2018-04-29] MEDS ORDERED: fentaNYL 100 MCG/2 ML VIAL IVP STA ×2 (11:11→12:18)
[2018-04-29 11:12] LABS: CLARITY,URINE HAZY (CLEAR)
[2018-04-29 11:21] LABS: BACTERIA,URINE Few /HPF (None Seen); RBC,URINE 0-5 /HPF (0-5); SQUAMOUS EPITHELIAL CELL,UR MOD Squamous (<= Few)
[2018-04-29 11:22] LABS: BASOPHILS # (AUTO) 0.1 10^3/uL (0.0-0.1); BASOPHILS % (AUTO) 0.8 %; EOSINOPHILS # (AUTO) 0.4 10^3/uL (0.0-0.7); EOSINOPHILS % (AUTO) 3.8 %; HGB - HEMOGLOBIN 11.3 g/dL (12.0-16.0); LYMPHOCYTES # (AUTO) 2.8 10^3/uL (1.5-3.5); LYMPHOCYTES % (AUTO) 29.6 %; MEAN CORPUSCULAR HEMOGLOBIN 32.3 pg (27.0-31.0); MEAN CORPUSCULAR HGB CONC 34.8 g/dL (32.0-36.0); MEAN PLATELET VOLUME 7.4 fL (7.9-10.8); MONOCYTES # (AUTO) 0.6 10^3/uL (0.0-1.0); MONOCYTES % (AUTO) 6.5 %; NEUTROPHILS # (AUTO) 5.7 10^3/uL (1.5-6.6); NEUTROPHILS % (AUTO) 59.3 %; PLT - PLATELET COUNT 305 10^3/uL (130-450); RED CELL DISTRIBUTION WIDTH 13.8 % (12.0-15.0); WHITE BLOOD COUNT 9.6 x10^3/uL (4.8-10.8)
--- NOTE | 2018-04-29 11:30 | ED Physician Documentation ---
History of Present Illness - Stated complaint Stated Complaint: LOWER ABD PX - Chief complaint Chief Complaint: Abd Pain - Additonal information Additional information: 27-year-old female presents To the emergency department with ongoing left-sided abdominal pain. The patient is status post a hysterectomy and removal of her fallopian tubes on April 11. The patient was seen on April 27 for ongoing pain and was found to have a large cyst and poor blood flow to the ovary. It was recommended that the patient stay for admission and pain control but the patient decided to leave. The patient returns with increasing left lower abdomi nal pain. Pain is described as severe. No relieving factors. No triggering factors. 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 HEENT: None Psych: Anxiety, Bipolar disorder Musculoskeletal: None Derm: None - Past Surgical History Past Surgical History: Yes General: Cholecystectomy, Appendectomy /RANCH MANAGER: Tubal ligation, Hysterectomy, LEEP (Cervical surgery) - Present Medications Home Medications: Ambulatory Orders Medication Instructions Recorded Confirmed Divalproex Sodium [Depakote] 500 mg PO BID 08/10/17 04/29/18 Albuterol Sulfate [Proventil Hfa 1 - 2 puffs IH Q4H PRN #1 10/26/17 04/29/18 Inhaler] [email or web address] Ondansetron HCl [Zofran] 4 mg PO Q6H PRN #20 tablet 12/23/17 04/29/18 HYDROmorphone [Dilaudid] 2 mg PO Q4H 04/12/18 04/29/18 Oxycodone HCl 10 mg PO Q6HR PRN #20 tablet 04/12/18 04/29/18 Promethazine [Phenergan] 25 mg PO Q6H PRN #10 tab 04/12/18 04/29/18 - Allergies Allergies/Adverse Reactions: Allergies Allergy/AdvReac Type Severity Reaction Status Date / Time bupropion HCl * Allergy Rash Verified 04/29/18 10:52 [From Wellbutrin] lamotrigine [From Lamictal] Allergy Rash Verified 04/29/18 10:52 morphine Allergy Rash Verified 04/29/18 10:52 - Social History Does the pt smoke?: Yes Smoking Status: Current every day smoker Does the pt drink ETOH?: No Does the pt have substance abuse?: No - Immunizations Immunizations are current?: No Immunizations: TDAP >10years/unknown, Other immun current - POLST Patient has POLST: No PD ED PE NORMAL - General General: Alert and oriented X 3. No: No acute distress (The patient appears quite uncomfortable) - HEENT HEENT: Atraumatic, PERRL, EOMI, Ears normal - Neck Neck: Supple, no meningeal sign - Cardiac Cardiac: RRR, Strong equal pulses - Respiratory Respiratory: No respiratory distress, Clear bilaterally - Abdomen Abdomen: Soft. No: Non tender (TTP left No rebound or peritoneal signs) - Derm Derm: Normal color - Extremities Extremities: No deformity - Neuro Neuro: Alert and oriented X 3, Normal speech - Psych Psych: Normal affect Results - Vitals Vitals: Vital Signs - 24 hr 04/29/18 04/29/18 10:49 12:34 Temperature 36.6 C Heart Rate 98 80 Respiratory 16 18 Rate Blood Pressure 114/88 H 134/84 H O2 Saturation 100 100 Oxygen O2 Source Room air - Labs Labs: Laboratory Tests 04/29/18 04/29/18 04/29/18 11:00 11:06 11:06 WBC 9.6 RBC 3.50 L Hgb 11.3 L Hct 32.5 L MCV 93.0 MCH 32.3 H MCHC 34.8 RDW 13.8 Plt Count 305 MPV 7.4 L Neut # (Auto) 5.7 Lymph # (Auto) 2.8 [place] # (Auto) 0.6 Eos # (Auto) 0.4 Baso # (Auto) 0.1 Absolute Nucleated RBC 0.00 Nucleated RBC % 0.0 Sodium 136 Potassium 3.9 Chloride 105 Carbon Dioxide 24 Anion Gap 7.0 BUN 10 Creatinine 0.7 Estimated GFR (MDRD) 99 Glucose 112 H Calcium 9.0 Total Bilirubin < 0.2 L AST 23 ALT 20 Alkaline Phosphatase 74 Total Protein 7.3 Albumin 4.1 Globulin 3.2 Albumin/Globulin Ratio 1.3 Lipase 33 HCG, Quant Urine Color YELLOW Urine Clarity HAZY Urine pH 6.0 Ur Specific [place] >=1.030 H Urine Protein NEGATIVE Urine Glucose (UA) NEGATIVE Urine Ketones NEGATIVE Urine Occult Blood NEGATIVE Urine Nitrite NEGATIVE Urine Bilirubin NEGATIVE Urine Urobilinogen 0.2 (NORMAL) Ur Leukocyte Esterase TRACE H Urine RBC 0-5 Urine WBC 4-5 Ur Squamous Epith Cells MOD Squamous H Urine Bacteria Few Ur Microscopic Review INDICATED Urine Culture Comments NOT INDICATED 04/29/18 11:06 WBC RBC Hgb Hct MCV MCH MCHC RDW Plt Count MPV Neut # (Auto) Lymph # (Auto) [place] # (Auto) Eos # (Auto) Baso # (Auto) Absolute Nucleated RBC Nucleated RBC % Sodium Potassium Chloride Carbon Dioxide Anion Gap BUN Creatinine Estimated GFR (MDRD) Glucose Calcium Total Bilirubin AST ALT Alkaline Phosphatase Total Protein Albumin Globulin Albumin/Globulin Ratio Lipase HCG, Quant < 0.60 Urine Color Urine Clarity Urine pH Ur Specific [place] Urine Protein Urine Glucose (UA) Urine Ketones Urine Occult Blood Urine Nitrite Urine Bilirubin Urine Urobilinogen Ur Leukocyte Esterase Urine RBC Urine WBC Ur Squamous Epith Cells Urine Bacteria Ur Microscopic Review Urine Culture Comments - Rads (name of study) US pevlic Radiology: Final report received, See rad report (1. Status post hysterectomy. 2. Enlarged left ovary containing a complex cystic lesion with an appearance most likely representing a hemorrhagic cyst. Appropriate flow documented within the left ovary. ) PD MEDICAL DECISION MAKING - ED course ED course: The patient was seen and evaluated by Dr. Lockett from [employer] [facility], She independently reviewed the patient's ultrasound, lab work and independently assessed the patient and examined the patient. Presently, she does not feel that the patient requires any emergent surgical intervention or admission to the hospital. She recommends discharge home and follow-up as an outpatient. On further review of the patient's prescriptions she has had extensive amounts of narcotics prescribed to her. The patient just received 30 tablets on April 23. No further narcotics will be prescribed by the emergency department. I discussed the findings and plan with the patient who understands and agrees. I advised returning to the emergency department for any worsening or any concerns. Departure - Departure Disposition: Home, Self Care Clinical Impression: Pelvic pain Ovarian cyst Qualifiers: Laterality: left Qualified Code(s): N83.202 - Unspecified ovarian cyst, left side Condition: Good Instructions: Abdominal Pain Follow-Up: JOSEPHINE JACOBO [Primary Care Provider] - Rick Jolly MD [Provider Admit Priv/Credential] - (Please call to schedule a follow-up appointment) Comments: Please return to the emergency department for any worsening or any concerns.
[2018-04-29 11:33] LABS: ALBUMIN 4.1 g/dL (3.2-5.5); ALBUMIN/GLOBULIN RATIO 1.3 (1.0-2.2); ALKALINE PHOSPHATASE 74 IU/L (42-121); ALT ALANINE AMINOTRANSFERASE 20 IU/L (10-60); AST ASPARTATE AMINOTRANSFERASE 23 IU/L (10-42); BILIRUBIN,TOTAL < 0.2 mg/dL (0.2-1.0); BUN - BLOOD UREA NITROGEN 10 mg/dL (6-20); CARBON DIOXIDE - CO2 24 mmol/L (21-32); CHLORIDE 105 mmol/L (101-111); CREATININE 0.7 mg/dL (0.4-1.0); GFR - MDRD 99 (>89); GLUCOSE 112 mg/dL (70-100); LIPASE 33 U/L (22-51); SODIUM 136 mmol/L (135-145); TOTAL PROTEIN 7.3 g/dL (6.7-8.2)
[2018-04-29] MEDS ORDERED: PROMETHAZINE INJ 25 MG in SODIUM CHLORIDE 0.9% 50 ML IV STA (12:18)
--- NOTE | 2018-04-29 12:38 | Ultrasound Report ---
Reason: pelvic pain, L Procedure Date: 04/29/2018 Accession Number: [id number] / [id number] Procedure: US - Pelvic w/Transvag+Doppler Comp CPT Code: FULL RESULT: EXAM: PELVIC ULTRASOUND EXAM DATE: 04/29/2018 12:09 PM. CLINICAL HISTORY: Left pelvic pain. History of hysterectomy on 04/08/2018. G1, P 1. COMPARISON: PEL NON OB W/TV DOP 04/27/2018 9:[address] from 04/27/2018. TECHNIQUE: Realtime transabdominal pelvic scan performed to identify the uterus and adnexa and as an overview of other pelvic structures, followed by transvaginal scan to provide greater detail of the uterus and adnexa, with static image documentation. FINDINGS: Uterus: Surgically absent. Right Ovary: 2.5 x 1.3 x 2.1 cm, volume 3.5 cc. Normal echotexture. Normal blood flow. There is a 1.1 x 0.7 x 0.9 cm cyst in the right ovary. Resistive index measures 0.8. Left Ovary: 5.3 x 4.1 x 4.7 cm, volume 53.4 cc. Enlarged left ovary containing a complex cystic lesion measuring 3.8 x 4.3 x 3.3 cm with an avascular reticular lacelike appearance. Flow documented within the left ovary. Resistive index measures 0.72. The left ovary previously measured a volume of 46.6 cc assessed transabdominally on the study from 04/27/2018. Cystic lesion was previously seen within the left ovary. Free Fluid: None. Other: None. IMPRESSION: 1. Status post hysterectomy. 2. Enlarged left ovary containing a complex cystic lesion with an appearance most likely representing a hemorrhagic cyst. Appropriate flow documented within the left ovary. 3. Normal right ovary. RADIA
[2018-04-29 13:27] VITALS: BP 128/74
--- NOTE | 2018-04-29 16:02 | CONSULTATION NOTE ---
DATE OF CONSULTATION: 04/29/2018 IDENTIFICATION: A 27-year-old G12, P1-0-11-1. HISTORY OF PRESENT ILLNESS: Patient is a patient of [facility] whom Dr. Rick Jolly has been taking care of. Patient apparently has a history of menorrhagia and dysmenorrhea. She underwent a total laparoscopic hysterectomy and bilateral salpingectomy on 04/08/2018. Patient was discharged to home on postoperative day #[address] Jolly in the office. She had presented here in the emergency department on 04/10/2018, 04/12/2014, and 04/27/2018 recently for complaints of postoperative pain. Patient did have an appointment at [facility] yesterday; apparently did make her appointment. Patient tells me that she has been on ibuprofen 600 mg as well as Tylenol 650 mg. She has also been on oxycodone high doses. Patient states that she had a sudden onset of sharp pain in her left lower quadrant that started over the weekend. She states that the pain radiates to her back. This pain started after she picked up a 45-pound box. She stated that she was worried about her sutures tearing after surgery. The pain is described as 8 to 9/10 pain scale. She has nausea and has vomited 3 times. She denies any diarrhea or constipation. She also denies fevers, but states she does have some chills. She does have a normal appetite. PAST MEDICAL HISTORY 1. Bipolar disorder. 2. Chronic migraines. 3. Status post brain injury. 4. Exercise-induced asthma. PAST SURGICAL HISTORY 1. 1999, appendectomy. 2. LEEP in 2007 and 2008. 3. 2011, cholecystectomy. 4. 2004, tubal sterilization. 5. 04/08/2018, total laparoscopic hysterectomy, bilateral salpingectomy. ALLERGIES 1. MORPHINE. 2. WELLBUTRIN. WITH BOTH, SHE HAS A RASH THAT IS PRURITIC. MEDICATIONS 1. Depakote. 2. Promethazine. 3. Oxycodone. SOCIAL HISTORY: Her primary care is [facility] in [place]. Her pharmacy of choice is [facility] in [place]. She is currently accompanied by Adis, her . They have a 7-year-old daughter. PAST OBSTETRICAL HISTORY 1. One term vaginal delivery. 2. Eleven miscarriages. PAST GYNECOLOGICAL HISTORY 1. Status post LEEP, x2. 2. Status post total laparoscopic hysterectomy and bilateral salpingectomy on 04/08/2018 for menorrhagia and dysmenorrhea. 3. Path report shows 87 gram uterus. The cervix as shows mild chronic cervicitis and squamous metaplasia. There is focal adenomyosis uteri. FAMILY HISTORY: Noncontributory. REVIEW OF SYSTEMS: Negative unless otherwise stated. OBJECTIVE VITAL SIGNS: Temperature is 97.9, heart rate 98, blood pressure 114/88 and 134/84. GENERAL: Patient is a well-developed, well-nourished, female in no apparent distress. She is alert and oriented x3. HEENT: Patient does have multiple piercings on her head. ABDOMEN: Soft with mild tenderness to palpation. The laparoscopic incision sites are well healed. There are no peritoneal signs. LABORATORY DATA: Shows a white count of 9.6, H and H of 11.3 and 32.5, platelets at 305. Potassium 3.9, creatinine 0.7, glucose 112, AST 23. Urinalysis only shows trace leuks with moderate squamous cells. Pelvic ultrasound on 04/29/2018 shows normal adnexa. There is a 1.1 x 0.7 x 0.9 cm cyst in the right ovary. Resistive index measured 0.8. Left ovary shows an enlarged complex cystic lesion, measuring 3.8 x 4.3 x 3.3 cm with an avascular reticular-like appearance flow documented within the left ovary. Resistive index measured 0.72 cm. A 04/27/2018 CT of the abdomen and pelvis shows an enlarged left ovary, measuring 4.6 x 4.5 cm with a cyst measuring 3.7 cm. Status post hysterectomy. Trace amount of free fluid in the pelvis. ASSESSMENT 1. A 27-year-old G12, P1-0-11-1. 2. Status post total laparoscopic hysterectomy and bilateral salpingectomy on 04/08/2018. 3. Abdominal pain. PLAN 1. Since ultrasound is not suspicious for ovarian torsion and her mass is not particularly large, we will conservatively manage and suggest repeating her ultrasound in a month. 2. Patient is to increase her Motrin to 800 mg p.o. q.6 hours and Tylenol 2000 mg p.o. q.8 hours. 3. I have declined giving patient oxycodone, given her recent report on narcotics. From 08/13/2017 to 04/23/2018, she has received 379 tablets from nine prescribers and four pharmacies. She has received multiple prescriptions of Percocet from her dentists, [facility] and [facility]. More recently, she has received 90 tablets of oxycodone, both 5 and 10 mg postoperatively, in addition to 20 tablets of oxycodone 5 mg for her preop pain control. 4. Follow up with Dr. Jolly for her postoperative care. TD: 04/29/2018 13:36 MTDD
== END 2018-04-29 13:26 | disposition home or self-care (01) ==
LOC: ED 10:47
DX: R10.2 Pelvic and perineal pain (principal); N83.202 Unspecified ovarian cyst, left side; Z90.710 Acquired absence of both cervix and uterus; F17.200 Nicotine dependence, unspecified, uncomplicated
CPT/HCPCS: 36415; 76830; 76856; 80053; 81001; 83690; 84702; 85025; 93975; 96361; 96365; 96375; 96376; 99283; J7040; 81003; 87086

== ENCOUNTER 2018-05-19 15:35 | Outpatient (CLI) | payer OTHER ==
[2018-05-22 16:14] LABS: BILIRUBIN,URINE NEGATIVE (NEGATIVE); CLARITY,URINE CLEAR (CLEAR); GLUCOSE, URINE (UA) NEGATIVE (NEGATIVE); KETONES,URINE (UA) NEGATIVE (NEGATIVE); LEUKOCYTE ESTERASE, URINE NEGATIVE (NEGATIVE); NITRITE,URINE NEGATIVE (NEGATIVE); OCCULT BLOOD,URINE NEGATIVE (NEGATIVE); PH,URINE 8.5 PH (5.0-7.5); PROTEIN,URINE NEGATIVE (NEGATIVE); UROBILINOGEN,URINE 0.2 (NORMAL) E.U./dL (NORMAL)
== END 2018-05-19 23:59 | disposition home or self-care (01) ==
LOC: LAB.R 15:35
PROVIDERS: ATTEND Obstetrics & Gynecology
DX: R39.15 Urgency of urination (principal)
CPT/HCPCS: 81001; 81003; 87086

== ENCOUNTER 2018-06-29 11:04 | Emergency (ER) | payer OTHER ==
[2018-06-29 13:34] VITALS: BP 143/87
== END 2018-06-29 15:44 | disposition left against medical advice (07) ==
LOC: ED 11:04
DX: J34.89 Other specified disorders of nose and nasal sinuses (principal); J02.9 Acute pharyngitis, unspecified; R05 Cough; Z53.21 Procedure and treatment not carried out due to patient leaving prior to being seen by health care provider
CPT/HCPCS: 87275; 87276

== ENCOUNTER 2019-03-17 11:29 | Outpatient (CLI) | payer OTHER ==
[2019-03-17 11:56] LABS: BASOPHILS # (AUTO) 0.1 10^3/uL (0.0-0.1); BASOPHILS % (AUTO) 0.8 %; EOSINOPHILS # (AUTO) 0.2 10^3/uL (0.0-0.7); EOSINOPHILS % (AUTO) 1.9 %; HGB - HEMOGLOBIN 12.7 g/dL (12.0-16.0); LYMPHOCYTES # (AUTO) 2.5 10^3/uL (1.5-3.5); LYMPHOCYTES % (AUTO) 31.4 %; MEAN CORPUSCULAR HEMOGLOBIN 30.5 pg (27.0-31.0); MEAN CORPUSCULAR HGB CONC 32.8 g/dL (32.0-36.0); MEAN PLATELET VOLUME 9.3 fL (7.9-10.8); MONOCYTES # (AUTO) 0.5 10^3/uL (0.0-1.0); MONOCYTES % (AUTO) 5.8 %; NEUTROPHILS # (AUTO) 4.7 10^3/uL (1.5-6.6); NEUTROPHILS % (AUTO) 59.8 %; PLT - PLATELET COUNT 292 10^3/uL (130-450); RED BLOOD COUNT 4.16 10^6/uL (4.20-5.40); RED CELL DISTRIBUTION WIDTH 12.1 % (12.0-15.0); WHITE BLOOD COUNT 7.9 x10^3/uL (4.8-10.8)
[2019-03-17 12:14] LABS: ALBUMIN 4.1 g/dL (3.2-5.5); ALBUMIN/GLOBULIN RATIO 1.1 (1.0-2.2); ALKALINE PHOSPHATASE 89 IU/L (42-121); ALT ALANINE AMINOTRANSFERASE 18 IU/L (10-60); AST ASPARTATE AMINOTRANSFERASE 19 IU/L (10-42); BILIRUBIN,TOTAL 0.4 mg/dL (0.2-1.0); BUN - BLOOD UREA NITROGEN 10 mg/dL (6-20); CALCIUM 9.2 mg/dL (8.5-10.3); CARBON DIOXIDE - CO2 25 mmol/L (21-32); CHLORIDE 104 mmol/L (101-111); CREATININE 0.8 mg/dL (0.4-1.0); GFR - MDRD 84 (>89); GLUCOSE 95 mg/dL (70-100); SODIUM 139 mmol/L (135-145); TOTAL PROTEIN 7.8 g/dL (6.7-8.2)
[2019-03-17 12:18] LABS: CRP - C-REACTIVE PROTEIN < 1.0 mg/dL (0-1.0)
[2019-03-17 12:50] LABS: THYROID STIMULATING HORMONE 2.92 uIU/mL (0.34-5.60)
[2019-03-17 12:52] LABS: FREE T4 (FREE THYROXINE) 0.94 ng/dL (0.58-1.64)
[2019-03-17 13:18] LABS: RHEUMATOID FACTOR NEGATIVE (Negative)
[2019-03-19 11:50] LABS: ANA SCREEN NEGATIVE (NEGATIVE)
== END 2019-03-17 11:30 | disposition home or self-care (01) ==
LOC: LAB 11:29
PROVIDERS: ATTEND Family Medicine
DX: F41.9 Anxiety disorder, unspecified (principal); R10.2 Pelvic and perineal pain; M54.6 Pain in thoracic spine; M54.16 Radiculopathy, lumbar region; R51 Headache; F90.0 Attention-deficit hyperactivity disorder, predominantly inattentive type; F31.9 Bipolar disorder, unspecified; G40.909 Epilepsy, unspecified, not intractable, without status epilepticus; E66.9 Obesity, unspecified; E03.9 Hypothyroidism, unspecified
CPT/HCPCS: 36415; 80053; 84439; 84443; 84481; 85025; 85651; 86038; 86140; 86430

== ENCOUNTER 2019-03-25 09:44 | Outpatient (CLI) | payer OTHER ==
--- NOTE | 2019-03-25 12:59 | XRAY Report ---
Reason: SHORTNESS OF BREATH Procedure Date: 03/25/2019 Accession Number: [id number] / [id number] Procedure: XR - Chest 2 View X-Ray CPT Code: 34382 Final Report FULL RESULT: EXAM: CHEST RADIOGRAPHY EXAM DATE: 03/25/2019 09:56 AM. CLINICAL HISTORY: Shortness of breath. COMPARISON: CHEST 2 VIEW 10/26/2017 2:08 PM. TECHNIQUE: 2 views. FINDINGS: Lungs/Pleura: No focal opacities evident. No pleural effusion. No pneumothorax. Normal volumes. Mediastinum: Heart and mediastinal contours are unremarkable. Other: None. IMPRESSION: No acute cardiopulmonary abnormality. RADIA
== END 2019-03-25 09:45 | disposition home or self-care (01) ==
LOC: DI 09:44
PROVIDERS: ATTEND Family Medicine
DX: R06.02 Shortness of breath (principal)
CPT/HCPCS: 71046

== ENCOUNTER 2019-04-12 09:10 | Outpatient (CLI) | payer OTHER | END 2019-04-12 23:59 | disposition home or self-care (01) | LOC: LAB.R 09:10 | PROVIDERS: ATTEND Family Medicine | DX: R39.15 Urgency of urination (principal) | CPT/HCPCS: 87086 ==

== ENCOUNTER 2019-04-18 22:29 | Emergency (ER) | payer OTHER ==
--- NOTE | 2019-04-19 01:23 | ED Physician Documentation ---
PD HPI HEADACHE - Stated complaint Stated Complaint: HEADACHE/VOM/BLACK OUT - Chief complaint Chief Complaint: Neuro - History obtained from History obtained from: Patient - History of Present Illness Timing - onset: How many weeks ago (2) Timing - details: Gradual onset, Waxing and waning Worst headache ever?: No: Worst headache ever? Location: Global Associated symptoms: Nausea, Vomiting, Syncope. No: Fever, Stiff neck Improved by: Rest, Dark room Worsened by: Light Similar symptoms before: Diagnosis - Additional information Additional information: c/o headache since 04/06 that became significantly worse over past 2 days. she has a complicated history regarding headaches for which she sees neurology. she has a care plan with her regarding treatment of her headaches in ED. on my HPI, she says this is not the worst headache she has had but similar to previous severe headaches that fail to respond to her home medications. she had syncopal episode earlier tonight x 30 seconds, but she says this also has happened in the past with her worst headaches. Review of Systems Constitutional: reports: Reviewed and negative Eyes: reports: Photophobia. denies: Loss of vision, Decreased vision GI: reports: Nausea, Vomiting. denies: Abdominal Pain Neurologic: reports: Syncope, Headache. 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 PHONE SALESPERSON: Tubal ligation, Hysterectomy, LEEP (Cervical surgery) - Present Medications Home Medications: Ambulatory Orders Medication Instructions Recorded Confirmed Albuterol Sulfate [Proventil Hfa 1 - 2 puffs IH Q4H PRN #1 10/26/17 01/06/19 Inhaler] [email or web address] Diurex applic PO DAILY 01/06/19 OLANZapine [Olanzapine] 15 mg PO DAILY 01/06/19 01/06/19 Pantoprazole Sodium 40 mg PO BID 01/06/19 01/06/19 Sulfamethox/Trimeth 800/160 1 each PO BID #20 tablet 01/06/19 [Bactrim Ds 800/160] Verapamil HCl 120 mg PO DAILY 01/06/19 01/06/19 - Allergies Allergies/Adverse Reactions: Allergies Allergy/AdvReac Type Severity Reaction Status Date / Time bupropion HCl * Allergy Rash Verified 01/06/19 20:36 [From Wellbutrin] lamotrigine [From Lamictal] Allergy Rash Verified 01/06/19 20:36 morphine Allergy Rash Verified 01/06/19 20:36 - Social History Does the pt smoke?: Yes Smoking Status: Current every day smoker Does the pt drink ETOH?: Yes Does the pt have substance abuse?: Yes Substance Use and Type: Marijuana - Immunizations Immunizations are current?: Yes Immunizations: TDAP >10years/unknown, Other immun current - POLST Patient has POLST: No PD ED PE NORMAL - Vitals Vital signs reviewed: Yes - General General: Alert and oriented X 3, Well developed/nourished, Other (appears uncomfortable but answers quickly and appropriately) - HEENT HEENT: PERRL, EOMI, Moist mucous membranes, Other (mild photophobia) - Neck Neck: Supple, no meningeal sign - Cardiac Cardiac: RRR, No murmur - Respiratory Respiratory: No respiratory distress, Clear bilaterally - Abdomen Abdomen: Soft, Non tender - Derm Derm: Normal color, Warm and dry - Neuro Neuro: Alert and oriented X 3, photoengraving machine operator/tender 2-12 intact, No motor deficit, No sensory deficit, Normal speech Eye Opening: Spontaneous Motor: Obeys Commands Verbal: Oriented GCS Score: 15 Results - Vitals Vitals: Oxygen O2 Source Room air PD MEDICAL DECISION MAKING - ED course Complexity details: reviewed old records, reviewed results, re-evaluated patient, considered differential, d/w patient ED course: patient reported adequate relief with iv dilaudid, phenergan, and benadryl. she did not request the dilaudid, nor any other specific medication except noting that benadryl and phenergan have been effective in the past. 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
[2019-04-19] MEDS ORDERED: PROMETHAZINE INJ 25 MG in SODIUM CHLORIDE 0.9% 50 ML IV STA (01:36)
[2019-04-19] MEDS ORDERED: diphenhydrAMINE INJ 50 MG/ML VIAL IVP STA ×2 (01:36→02:42)
[2019-04-19] MEDS ORDERED: HYDROmorphone 1 MG/ML CARPUJECT IVP STA ×2 (01:36→02:41)
[2019-04-19 03:19] VITALS: BP 115/74
== END 2019-04-19 03:15 | disposition home or self-care (01) ==
LOC: ED 22:29
DX: G44.51 Hemicrania continua (principal); R55 Syncope and collapse; F17.200 Nicotine dependence, unspecified, uncomplicated
CPT/HCPCS: 96365; 96375; 96376; 99284; J1170; J1200; J7040

== ENCOUNTER 2019-05-05 09:26 | Emergency (ER) | payer OTHER ==
--- NOTE | 2019-05-05 10:15 | ED Physician Documentation ---
PD HPI HEADACHE - Stated complaint Stated Complaint: VELA - Chief complaint Chief Complaint: Neuro - History obtained from History obtained from: Patient - History of Present Illness Timing - onset: How many weeks ago Worst headache ever?: Worst headache ever? (No) Associated symptoms: Nausea, Weakness (Right arm which is chronic with her headache complex). No: Fever, Stiff neck, Vomiting, Syncope Recently seen: Emergency Dept - Additional information Additional information: This is a 28-year-old woman with a longstanding history of multiple headache diagnoses and complex headache situation that sees a headache specialist in [place]. She also has underlying history of bipolar disorder that she takes olanzapine for and she hasn't slept in 48 hours due to the headache andso feels her bipolar could flare up. She says she is blacked out twice today which is not anything unusual for her. This headaches been continual since although she was seen here earlier this month received IV medications went home and after about 3 hours the headache progressed again over the next 3 days to "severe". She has a new appointment with a neurologist at [facility]. She has been nauseous but no vomiting. She used her Imitrex at home and her narcotic pain medication but it did not seem to help. She denies any recent illness with upper respiratory symptoms, fever and denies . She is been nauseous but no vomiting. The patient has a letter accompanying her from her headache specialist that recommends Depakote and Benadryl IV in the emergency department for flares of her chronic condition. Review of Systems Constitutional: denies: Fever Eyes: denies: Loss of vision Nose: denies: Rhinorrhea / runny nose Throat: denies: Sore throat Respiratory: denies: Cough GI: reports: Nausea. denies: Vomiting : reports: Hysterectomy. denies: Now EGA Neurologic: reports: Focal weakness (Right arm weakness consistent with her headache complex in the past.), Syncope (Consistent with her headaches in the past.) Psychiatric: reports: Insomnia PD PAST MEDICAL HISTORY - Past Medical History Cardiovascular: None Respiratory: Asthma Neuro: Migraines, Other Endocrine/Autoimmune: None GI: None [employer]: Fibroids : None HEENT: None Psych: Anxiety, Bipolar disorder Musculoskeletal: None Derm: None - Past Surgical History Past Surgical History: Yes General: Cholecystectomy, Appendectomy /[employer]: Tubal ligation, Hysterectomy, LEEP (Cervical surgery) - Present Medications Home Medications: Ambulatory Orders Medication Instructions Recorded Confirmed Albuterol Sulfate [Proventil Hfa 1 - 2 puffs IH Q4H PRN #1 10/26/17 01/06/19 Inhaler] [email or web address] Diurex applic PO DAILY 01/06/19 OLANZapine [Olanzapine] 15 mg PO DAILY 01/06/19 01/06/19 Pantoprazole Sodium 40 mg PO BID 01/06/19 01/06/19 Sulfamethox/Trimeth 800/160 1 each PO BID #20 tablet 01/06/19 [Bactrim Ds 800/160] Verapamil HCl 120 mg PO DAILY 01/06/19 01/06/19 - Allergies Allergies/Adverse Reactions: Allergies Allergy/AdvReac Type Severity Reaction Status Date / Time bupropion HCl * Allergy Rash Verified 05/05/19 09:28 [From Wellbutrin] lamotrigine [From Lamictal] Allergy Rash Verified 05/05/19 09:28 morphine Allergy Rash Verified 05/05/19 09:28 - Social History Does the pt smoke?: Yes Smoking Status: Current every day smoker Does the pt drink ETOH?: Yes Does the pt have substance abuse?: Yes - Immunizations Immunizations are current?: Yes Immunizations: TDAP >10years/unknown, Other immun current - POLST Patient has POLST: No PD ED PE NORMAL - Vitals Vital signs reviewed: Yes - General General: Alert and oriented X 3, No acute distress, Well developed/nourished, Other (Seems very nervous. She is continually twisting her arm band around her right wrist.) - HEENT HEENT: Atraumatic, PERRL, EOMI, Moist mucous membranes, Pharynx benign - Neck Neck: No adenopathy - Respiratory Respiratory: No respiratory distress - Neuro Neuro: Alert and oriented X 3, test preparer 2-12 intact, No sensory deficit, Normal speech, Other (There is 5 out of 5 mannequin coloring artist strength and biceps bilaterally but definitely stronger in the left than the right. [id number] is intact. Sensation is intact.) Results - Vitals Vitals: Vital Signs - 24 hr 05/05/19 05/05/19 05/05/19 09:29 11:12 12:13 Temperature 36.5 C Heart Rate 107 H 88 84 Respiratory 16 14 15 Rate Blood Pressure 133/80 H 143/53 H 140/63 H O2 Saturation 100 97 100 Oxygen O2 Source Room air PD MEDICAL DECISION MAKING - ED course Complexity details: re-evaluated patient, d/w patient ED course: Patient had an IV started and was given the Depakote and Benadryl from her treatment plan. She said the pain was still about a 9 out of 10. She was given Toradol and Reglan. She was still complaining of about a 8 out of 10 headache she had a liter of fluids. We gave her 5 mg of Haldol and shortly after it was administered she told the nurse that she thought this was in a work so could I write her discharge instruction so she could go home and get some rest. Departure - Departure Disposition: 01 Home, Self Care Clinical Impression: Hemicrania continua Condition: Good Instructions: ED Headache Migraine Follow-Up: Esvin Chu MD [Primary Care Provider] - Comments: Home and rest. Continue to pursue outpatient management of your chronic headache condition with a new neurology referral.
[2019-05-05] MEDS ORDERED: diphenhydrAMINE INJ 50 MG/ML VIAL IVP STA (10:35)
[2019-05-05] MEDS ORDERED: VALPROATE INJ 500 MG in SODIUM CHLORIDE 0.9% 100ML 100 ML IV STA (10:35)
[2019-05-05] MEDS ORDERED: SODIUM CHLORIDE 0.9% 1,000 ML IV ONE (10:36)
[2019-05-05] MEDS ORDERED: KETOROLAC 30 MG/ML VIAL IVP STA (12:02)
[2019-05-05] MEDS ORDERED: METOCLOPRAMIDE 10 MG/2 ML VIAL IVP STA (12:02)
[2019-05-05] MEDS ORDERED: HALOPERIDOL 5 MG/ML VIAL IVP ONE (13:06)
[2019-05-05 13:46] VITALS: BP 138/67
== END 2019-05-05 13:46 | disposition home or self-care (01) ==
LOC: ED 09:26
DX: G44.51 Hemicrania continua (principal); F31.9 Bipolar disorder, unspecified; F17.200 Nicotine dependence, unspecified, uncomplicated
CPT/HCPCS: 96365; 96366; 96375; 99284; 99285; J1200; J2765

== ENCOUNTER 2019-07-08 08:00 | Outpatient (CLI) | payer OTHER | END 2019-07-08 23:59 | disposition home or self-care (01) | LOC: LAB.R 08:00 | PROVIDERS: ATTEND Family Medicine | DX: R50.9 Fever, unspecified (principal); R05 Cough; R09.89 Other specified symptoms and signs involving the circulatory and respiratory systems ==

== ENCOUNTER 2019-09-07 19:33 | Emergency (ER) | payer OTHER ==
--- NOTE | 2019-09-07 19:54 | ED Physician Documentation ---
PD HPI HEADACHE - Stated complaint Stated Complaint: VELA/DIZZY - Chief complaint Chief Complaint: Neuro - History obtained from History obtained from: Patient - History of Present Illness Timing - onset: How many weeks ago (1) Timing - onset during: Light activity Timing - duration: Weeks (1) Timing - details: Gradual onset, Still present, Constant Worst headache ever?: No: Worst headache ever? Location: Front, Right Quality: Throbbing, Aching Associated symptoms: Nausea, Vision changes (blurred right). No: Fever, Stiff neck, Weakness Worsened by: Light Contributing factors: No: Hypertension, Recent illness Similar symptoms before: Diagnosis (has 3 types of headaches: daily right headache, tension type headaches, and migraines. This feels like persistent migraine. Tried PO meds and injectable Imitrex without improvement. States has had improvement in ER in past with Phenegan, steroids, and Depakote (given at other ERs).) Recently seen: Clinic (PMD had gotten Neurology referral for different Neurologist, with appt in Mid September.) Review of Systems Constitutional: denies: Fever, Chills Nose: reports: Sinus pressure / pain. denies: Rhinorrhea / runny nose Throat: denies: Sore throat, Swollen tonsils Cardiac: denies: Chest pain / pressure Respiratory: denies: Cough GI: reports: Nausea Skin: denies: Rash Neurologic: reports: Generalized weakness, Headache. 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 HEENT: None Psych: Anxiety, Bipolar disorder Musculoskeletal: None Derm: None - Past Surgical History Past Surgical History: Yes General: Cholecystectomy, Appendectomy /PRODUCT MANAGEMENT MANAGER: Tubal ligation, Hysterectomy, LEEP (Cervical surgery) - Present Medications Home Medications: Ambulatory Orders Medication Instructions Recorded Confirmed Albuterol Sulfate [Proventil Hfa 1 - 2 puffs IH Q4H PRN #1 10/26/17 01/06/19 Inhaler] [email or web address] OLANZapine [Olanzapine] 15 mg PO DAILY 01/06/19 01/06/19 Pantoprazole Sodium 40 mg PO BID 01/06/19 01/06/19 Verapamil HCl 120 mg PO DAILY 01/06/19 01/06/[address] [Depjenna Lima] 125 mg PO BID #30 tablet 09/07/19 Promethazine [Phenergan] 25 mg PO Q6H PRN #15 tab 09/07/19 dexAMETHasone [Decadron] 4 mg PO DAILY #5 tablet 09/07/19 oxyCODONE ER [OxyCONTIN] 10 mg PO BID 09/07/19 09/07/19 oxyCODONE [Roxicodone] 5 mg PO PRN PRN 09/07/19 09/07/19 - Allergies Allergies/Adverse Reactions: Allergies Allergy/AdvReac Type Severity Reaction Status Date / Time bupropion HCl * Allergy Rash Verified 05/05/19 09:28 [From Wellbutrin] lamotrigine [From Lamictal] Allergy Rash Verified 05/05/19 09:28 morphine Allergy Rash Verified 05/05/19 09:28 hydrocodone AdvReac Unknown Verified 09/07/19 19:44 - Social History Does the pt smoke?: Yes Smoking Status: Current every day smoker Does the pt drink ETOH?: Yes Does the pt have substance abuse?: Yes - Immunizations Immunizations are current?: Yes Immunizations: TDAP >10years/unknown, Other immun current - POLST Patient has POLST: No PD ED PE NORMAL - Vitals Vital signs reviewed: Yes - General General: Alert and oriented X 3, No acute distress, Well developed/nourished - HEENT HEENT: Atraumatic, Pharynx benign - Neck Neck: Supple, no meningeal sign, No adenopathy - Cardiac Cardiac: RRR, No murmur - Respiratory Respiratory: Clear bilaterally - Derm Derm: Normal color, Warm and dry - Neuro Neuro: Alert and oriented X 3, orthotic and prosthetic technician 2-12 intact, No motor deficit, No sensory deficit, Normal speech, Other Eye Opening: Spontaneous Motor: Obeys Commands Verbal: Oriented GCS Score: 15 - Psych Psych: Normal mood, Normal affect Results - Vitals Vitals: Vital Signs - 24 hr 09/07/19 09/07/19 19:38 23:05 Temperature 36.6 C 36.6 C Heart Rate 93 75 Respiratory 22 18 Rate Blood Pressure 124/96 H 161/97 H O2 Saturation 100 100 Oxygen O2 Source Room air - Labs Labs: Laboratory Tests 09/07/19 09/07/19 20:52 20:52 WBC 11.4 H RBC 4.15 L Hgb 12.8 Hct 38.4 MCV 92.5 MCH 30.8 MCHC 33.3 RDW 12.6 Plt Count 270 MPV 9.0 Neut # (Auto) 7.9 H Lymph # (Auto) 2.6 Hand # (Auto) 0.6 Eos # (Auto) 0.2 Baso # (Auto) 0.0 Absolute Nucleated RBC 0.00 Nucleated RBC % 0.0 Sodium 136 Potassium 3.5 Chloride 100 L Carbon Dioxide 27 Anion Gap 9.0 BUN 11 Creatinine 0.8 Estimated GFR (MDRD) 84 L Glucose 108 H Calcium 8.9 Total Bilirubin 0.3 AST 23 ALT 24 Alkaline Phosphatase 104 Total Protein 7.6 Albumin 4.2 Globulin 3.4 Albumin/Globulin Ratio 1.2 Lipase 29 PD MEDICAL DECISION MAKING - ED course Complexity details: reviewed old records, re-evaluated patient (improved to 5- 6/10 headache, which she says is about her baseline. ), considered differential (no red flags; will treat as migraine), d/w patient Departure - Departure Disposition: Home, Self Care Clinical Impression: Hemicrania continua, Migraine, Nausea Condition: Stable Record reviewed to determine appropriate education?: Yes Instructions: ED Headache Migraine Follow-Up: Esvin Chu MD [Primary Care Provider] - Prescriptions: dexAMETHasone [Decadron] 4 mg PO DAILY #[address] [Depakote Dr] 125 mg PO BID #30 tablet Promethazine [Phenergan] 25 mg PO Q6H PRN #15 tab PRN Reason: Nausea / Vomiting Comments: Continue usual medications. Follow-up with your primary care. Also follow-up with neurology as scheduled in September. Meanwhile we can treat with several days of Decadron steroid to see if that will have any consistent improvement in your headache. Add promethazine if needed for nausea. We could try initial low-dose of Depakote to see if it helps with the headache and your bipolar. This will give the neurologist another reference point perhaps, if it does seem to help. Discharge Date/Time: 09/07/19 23:06
[2019-09-07] MEDS ORDERED: SODIUM CHLORIDE 0.9% 1,000 ML IV STA ×2 (20:42→22:01)
[2019-09-07] MEDS ORDERED: PROMETHAZINE INJ 12.5 MG in SODIUM CHLORIDE 0.9% 50 ML IV STA (20:42)
[2019-09-07] MEDS ORDERED: VALPROATE INJ 500 MG in SODIUM CHLORIDE 0.9% 100ML 100 ML IV STA (20:42)
[2019-09-07] MEDS ORDERED: DEXAMETHASONE 10 MG/ML VIAL IVP STA (20:42)
[2019-09-07] MEDS ORDERED: KETOROLAC 30 MG/ML VIAL IVP STA (20:42)
[2019-09-07 20:57] LABS: BASOPHILS % (AUTO) 0.4 %; EOSINOPHILS # (AUTO) 0.2 10^3/uL (0.0-0.7); EOSINOPHILS % (AUTO) 1.5 %; HGB - HEMOGLOBIN 12.8 g/dL (12.0-16.0); LYMPHOCYTES # (AUTO) 2.6 10^3/uL (1.5-3.5); LYMPHOCYTES % (AUTO) 23.2 %; MEAN CORPUSCULAR HEMOGLOBIN 30.8 pg (27.0-31.0); MEAN CORPUSCULAR HGB CONC 33.3 g/dL (32.0-36.0); MEAN CORPUSCULAR VOLUME 92.5 fL (81.0-99.0); MONOCYTES # (AUTO) 0.6 10^3/uL (0.0-1.0); MONOCYTES % (AUTO) 5.2 %; NEUTROPHILS # (AUTO) 7.9 10^3/uL (1.5-6.6); NEUTROPHILS % (AUTO) 69.3 %; PLT - PLATELET COUNT 270 10^3/uL (130-450); RED BLOOD COUNT 4.15 10^6/uL (4.20-5.40); RED CELL DISTRIBUTION WIDTH 12.6 % (12.0-15.0); WHITE BLOOD COUNT 11.4 x10^3/uL (4.8-10.8)
[2019-09-07 21:13] LABS: ALBUMIN 4.2 g/dL (3.2-5.5); ALBUMIN/GLOBULIN RATIO 1.2 (1.0-2.2); BILIRUBIN,TOTAL 0.3 mg/dL (0.2-1.0); CALCIUM 8.9 mg/dL (8.5-10.3); CREATININE 0.8 mg/dL (0.4-1.0); TOTAL PROTEIN 7.6 g/dL (6.7-8.2)
[2019-09-07] MEDS ORDERED: HYDROmorphone 1 MG/ML CARPUJECT IVP STA (22:01)
[2019-09-07 23:06] VITALS: BP 161/97
== END 2019-09-07 23:06 | disposition home or self-care (01) ==
LOC: ED 19:33
DX: G44.51 Hemicrania continua (principal); G43.909 Migraine, unspecified, not intractable, without status migrainosus; R11.0 Nausea; F17.200 Nicotine dependence, unspecified, uncomplicated
CPT/HCPCS: 36415; 80053; 83690; 85025; 96365; 96367; 96375; 99284; J1170; J7040

== ENCOUNTER 2019-09-23 14:47 | Outpatient (CLI) | payer OTHER ==
[2019-09-23 15:41] LABS: THYROID STIMULATING HORMONE 6.26 uIU/mL (0.34-5.60)
[2019-09-23 16:09] LABS: FOLLICLE STIMULATING HORMONE 6.99 mIU/mL
[2019-09-23 16:10] LABS: LUTEINIZING HORMONE 16.22 mIU/mL
[2019-09-24 06:16] LABS: ESTRADIOL 54 pg/mL
[2019-09-27 16:35] LABS: DHEA SULFATE 126 mcg/dL (18-391)
== END 2019-09-23 14:48 | disposition home or self-care (01) ==
LOC: LAB 14:47
PROVIDERS: ATTEND Obstetrics & Gynecology
DX: L68.0 Hirsutism (principal); N92.6 Irregular menstruation, unspecified
CPT/HCPCS: 36415; 81599; 82627; 82670; 83001; 83002; 84402; 84403; 84443

== ENCOUNTER 2019-12-23 06:55 | Outpatient (CLI) | payer OTHER ==
--- NOTE | 2019-12-23 15:01 | Ultrasound Report ---
PROCEDURE: Pelvic w/Transvaginal INDICATIONS: MENOPAUSE SYMPTOMS TECHNIQUE: Real-time scanning was performed of the pelvic organs, with image documentation. Additional endovagi nal scanning was necessary due to incomplete visualization of the adnexal and endometrial structures by transabdominal scanning. COMPARISON: Ultrasound pelvis 04/29/18. FINDINGS: Transabdominal scanning: Limited scanning through the kidneys demonstrates no hydronephrosis. No pa thologic free abdominal or pelvic fluid. Endovaginal scanning: Uterus: Surgically absent. Ovaries: The right ovary was not discretely visualized. No definite right adnexal mass identified. T he left ovary measures 2.3 x 1.6 x 1.4 cm. There is associated internal vascularity on color Doppler interrogation. No left adnexal mass identified. IMPRESSION: 1. Small left ovary demonstrated without adnexal mass. 2. Right ovary not discretely visualized. Reviewed by: Moustapha Ramos MD on 12/23/2019 2:59 PM PDT Approved by: Moustapha Ramos MD on 12/23/2019 2:59 PM PDT Station ID: [id number]
== END 2019-12-23 06:56 | disposition home or self-care (01) ==
LOC: DI 06:55
PROVIDERS: ATTEND Obstetrics & Gynecology
DX: N95.1 Menopausal and female climacteric states (principal)
CPT/HCPCS: 76830; 76856

== ENCOUNTER 2020-05-13 10:44 | Emergency (ER) | payer OTHER ==
[2020-05-13] MEDS ORDERED: LACTATED RINGERS 1,000 ML IV STA (11:03)
[2020-05-13] MEDS ORDERED: diphenhydrAMINE 25 MG CAPSULE PO STA (11:04)
[2020-05-13] MEDS ORDERED: ACETAMINOPHEN 325 MG TABLET PO STA (11:04)
[2020-05-13] MEDS ORDERED: METOCLOPRAMIDE 10 MG/2 ML VIAL IVP STA (11:04)
[2020-05-13] MEDS ORDERED: KETOROLAC 30 MG/ML VIAL IVP STA (11:04)
[2020-05-13] MEDS ORDERED: VALPROATE INJ 500 MG in SODIUM CHLORIDE 0.9% 100ML 100 ML IV STA (12:06)
[2020-05-13] MEDS ORDERED: SUMAtriptan 6 MG/0.5 ML VIAL SUBQ STA (12:07)
[2020-05-13] MEDS ORDERED: diphenhydrAMINE INJ 50 MG/ML VIAL IVP STA (12:07)
--- NOTE | 2020-05-13 14:30 | ED Physician Documentation ---
History of Present Illness - Stated complaint Stated Complaint: HEADACHE - Chief complaint Chief Complaint: Neuro - History obtained from History obtained from: Patient - Additonal information Additional information: 29-year-old woman with past medical history of bipolar disorder, migraines, hemicrania continua presents with headache over the past 4 days associated with severe insomnia. Patient states that she has had 2 hours of sleep in 4 days secondary to headache. It is right-sided frontal nonradiating aching severe gradual onset constant without relieving factors. Worse with bright light. no neuro deficits. no fevers. Review of Systems Ten Systems: 10 systems reviewed and negative Constitutional: denies: Fever Musculoskeletal: denies: Neck pain Neurologic: reports: Headache. 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: Fibroids : Chronic bladder infection HEENT: None Psych: Anxiety, Bipolar disorder Musculoskeletal: None Derm: None Other Past Medical History: IBS - Past Surgical History Past Surgical History: Yes General: Cholecystectomy, Appendectomy /MOLECULAR TECHNOLOGIST: Tubal ligation, Hysterectomy, LEEP (Cervical surgery) - Present Medications Home Medications: Ambulatory Orders Medication Instructions Recorded Confirmed Albuterol Sulfate [Proventil Hfa 1 - 2 puffs IH Q4H PRN #1 10/26/17 05/13/20 Inhaler] hfa.aer.ad OLANZapine [Olanzapine] 15 mg PO DAILY 01/06/19 05/13/20 Pantoprazole Sodium 40 mg PO BID 01/06/19 05/13/20 Promethazine [Phenergan] 25 mg PO Q6H PRN #15 tab 09/07/19 05/13/20 dexAMETHasone [Decadron] 4 mg PO DAILY #5 tablet 09/07/19 05/13/20 oxyCODONE ER [OxyCONTIN] 10 mg PO BID 09/07/19 05/13/20 oxyCODONE [Roxicodone] 5 mg PO DAILY PRN 09/07/19 09/07/19 - Allergies Allergies/Adverse Reactions: Allergies Allergy/AdvReac Type Severity Reaction Status Date / Time bupropion HCl * Allergy Rash Verified 05/13/20 10:46 [From Wellbutrin] lamotrigine [From Lamictal] Allergy Rash Verified 05/13/20 10:46 morphine Allergy Rash Verified 05/13/20 10:46 hydrocodone AdvReac Unknown Verified 05/13/20 10:46 - Social History Does the pt smoke?: Yes Smoking Status: Current every day smoker Does the pt drink ETOH?: Yes Does the pt have substance abuse?: Yes - Immunizations Immunizations are current?: Yes Immunizations: TDAP >10years/unknown, Other immun current - POLST Patient has POLST: No PD ED PE NORMAL - Vitals Vital signs reviewed: Yes - General General: Alert and oriented X 3 - HEENT HEENT: Atraumatic, PERRL, EOMI, Moist mucous membranes, Pharynx benign - Neck Neck: Supple, no meningeal sign - Neuro Neuro: Alert and oriented X 3, 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 VELA mildly improved. Administered lido with epi to posterior nasopharynx as third line treatment with some improvement. return precautions given. patient will f/u with her neurologist. Departure - Departure Disposition: Home, Self Care Clinical Impression: Migraine Condition: Stable Instructions: Headaches Migraine Ch Comments: You are seen in the emergency department for migraine. We gave you Depakote, sumatriptan, Benadryl, Toradol, lidocaine topically to your nares. Please follow up with your neurologist. Return to the ED for any new or worsening symptoms. Discharge Date/Time: 05/13/20 14:51
[2020-05-13 14:33] VITALS: BP 152/95
== END 2020-05-13 14:51 | disposition home or self-care (01) ==
LOC: ED 10:44
DX: G43.909 Migraine, unspecified, not intractable, without status migrainosus (principal); G44.51 Hemicrania continua; F17.200 Nicotine dependence, unspecified, uncomplicated
CPT/HCPCS: 36415; 93005; 96361; 96365; 96372; 96375; 96376; 99283; 99284; A9270; J1200; J2765; J7120

== ENCOUNTER 2020-08-17 17:14 | Emergency (ER) | payer MEDICAID, OTHER ==
[2020-08-17] MEDS ORDERED: HALOPERIDOL 5 MG/ML VIAL IVP ONE (17:43)
[2020-08-17] MEDS ORDERED: SODIUM CHLORIDE 0.9% 1,000 ML IV STA (17:43)
[2020-08-17] MEDS ORDERED: KETOROLAC 30 MG/ML VIAL IVP STA (17:43)
[2020-08-17] MEDS ORDERED: METOCLOPRAMIDE 10 MG/2 ML VIAL IVP STA (17:43)
--- NOTE | 2020-08-17 17:44 | ED Physician Documentation ---
PD HPI HEADACHE - Stated complaint Stated Complaint: STROKE SYMPT/NAUSEA/DIZZY - Chief complaint Chief Complaint: Neuro - History obtained from History obtained from: Patient - Additional information Additional information: 29-year-old woman with chronic intractable migraines presents with a spike in her pain. The pain location and quality is similar to usual. It is behind the right eye radiating towards the back of the head and its associated with [id number] sensation in the arm and leg on the right as well as blindness in the right eye. She had all the symptoms before but does notes that the pain is worse than usual. She denies fevers, chills, neck stiffness. 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 : Chronic bladder infection HEENT: None Psych: Anxiety, Bipolar disorder Musculoskeletal: None Derm: None - Past Surgical History Past Surgical History: Yes General: Cholecystectomy, Appendectomy /FOOT PRESS OPERATOR: Tubal ligation, Hysterectomy, LEEP (Cervical surgery) - Present Medications Home Medications: Ambulatory Orders Medication Instructions Recorded Confirmed Albuterol Sulfate [Proventil Hfa 1 - 2 puffs IH Q4H PRN #1 10/26/17 08/17/20 Inhaler] hfa.[email or web address].ad oxyCODONE ER [OxyCONTIN] 10 mg PO TID 09/07/19 08/17/20 Aripiprazole [Abilify] 30 mg PO DAILY 08/17/20 08/17/20 Verapamil [Calan] 80 mg PO DAILY 08/17/20 08/17/20 - Allergies Allergies/Adverse Reactions: Allergies Allergy/AdvReac Type Severity Reaction Status Date / Time bupropion HCl * Allergy Rash Verified 05/13/20 10:46 [From Wellbutrin] lamotrigine [From Lamictal] Allergy Rash Verified 05/13/20 10:46 morphine Allergy Rash Verified 05/13/20 10:46 hydrocodone AdvReac Unknown Verified 05/13/20 10:46 - Social History Does the pt smoke?: Yes Smoking Status: Current every day smoker Does the pt drink ETOH?: Yes Does the pt have substance abuse?: Yes - Immunizations Immunizations are current?: Yes Immunizations: TDAP >10years/unknown, Other immun current - POLST Patient has POLST: No PD ED PE NORMAL - Vitals Vital signs reviewed: Yes - General General: Alert and oriented X 3, No acute distress - HEENT HEENT: PERRL (Despite complaints of acute blindness in the right eye, pupils are equal without an afferent pupillary defect.), EOMI - Neck Neck: Supple, no meningeal sign, No bony TTP - Cardiac Cardiac: RRR, No murmur - Respiratory Respiratory: No respiratory distress, Clear bilaterally - Abdomen Abdomen: Normal bowel sounds, Soft, Non tender - Back Back: No CVA TTP, No spinal TTP - Derm Derm: Normal color, Warm and dry - Neuro Neuro: Alert and oriented X 3, No motor deficit, Normal speech, Other (Diffusely incompletely numb throughout the right half of the body) Results - Vitals Vitals: Vital Signs - 24 hr 08/17/20 08/17/20 08/17/20 17:25 17:57 18:27 Temperature 36.6 C 36.8 C Heart Rate 100 84 67 Respiratory 18 18 16 Rate Blood Pressure 106/73 101/82 H 104/72 O2 Saturation 99 96 95 08/17/20 08/17/20 18:30 19:00 Temperature 36.7 C Heart Rate 84 Respiratory 16 Rate Blood Pressure 104/72 143/98 H O2 Saturation 100 Oxygen O2 Source Room air PD MEDICAL DECISION MAKING - ED course ED course: 29-year-old woman with migraine with neurologic symptoms. She got better after first round of medications but her symptoms quickly recurred and then after a second round of medications felt back to her baseline. Departure - Departure Disposition: 01 Home, Self Care Clinical Impression: Migraine Condition: Stable Record reviewed to determine appropriate education?: Yes Instructions: ED Headache Migraine Comments: Call your doctor to arrange a follow-up appointment, make the next available appointment. In the interim, return anytime if worse or if new symptoms develop. Do not drive tonight. Discharge Date/Time: 08/17/20 19:27
[2020-08-17] MEDS ORDERED: HYDROmorphone 1 MG/ML CARPUJECT IVP STA (18:46)
[2020-08-17] MEDS ORDERED: SUMAtriptan 6 MG/0.5 ML VIAL SUBQ STA (18:47)
[2020-08-17 19:27] VITALS: BP 143/98
== END 2020-08-17 19:27 | disposition home or self-care (01) ==
LOC: ED 17:14
DX: G43.909 Migraine, unspecified, not intractable, without status migrainosus (principal); F17.200 Nicotine dependence, unspecified, uncomplicated
CPT/HCPCS: 96372; 96374; 96375; 99284; 99285; J1170; J2765

== ENCOUNTER 2020-11-08 19:38 | Emergency (ER) | payer MEDICAID, OTHER ==
[2020-11-08 19:55] VITALS: BP 138/97
[2020-11-08] MEDS ORDERED: CHERRY SYRUP 10 ML UDC PO ONE (20:53)
[2020-11-08] MEDS ORDERED: DEXAMETHASONE 10 MG/ML VIAL PO STA (20:53)
--- NOTE | 2020-11-08 20:59 | ED Physician Documentation ---
History of Present Illness - Stated complaint Stated Complaint: COUGH,SORE THROAT,FEVER,ABD PX - Chief complaint Chief Complaint: Heent - History obtained from History obtained from: Patient - Additonal information Additional information: 29yF with pmh exercise induced asthma p/w SOA, nonproductive cough and sore throat X 2 weeks with intermittent fever, progressively worsening, so that she now gets dyspneic on exertion. also with chest tightness during coughing fits. denies leg swelling, hemoptysis, vomiting. 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 : Chronic bladder infection HEENT: None Psych: Anxiety, Bipolar disorder Musculoskeletal: None Derm: None - Past Surgical History Past Surgical History: Yes General: Cholecystectomy, Appendectomy /STONEMASON APPRENTICE: Tubal ligation, Hysterectomy, LEEP (Cervical surgery) - Present Medications Home Medications: Ambulatory Orders Medication Instructions Recorded Confirmed Albuterol Sulfate [Proventil Hfa 1 - 2 puffs IH Q4H PRN #1 10/26/17 08/17/20 Inhaler] hfa.aer.ad oxyCODONE ER [OxyCONTIN] 10 mg PO TID 09/07/19 08/17/20 ARIPiprazole [Abilify] 30 mg PO DAILY 08/17/20 08/17/20 Verapamil [Calan] 80 mg PO DAILY 08/17/20 08/17/20 - Allergies Allergies/Adverse Reactions: Allergies Allergy/AdvReac Type Severity Reaction Status Date / Time bupropion HCl * Allergy Rash Verified 11/08/20 19:53 [From Wellbutrin] lamotrigine [From Lamictal] Allergy Rash Verified 11/08/20 19:53 morphine Allergy Rash Verified 11/08/20 19:53 hydrocodone AdvReac Unknown Verified 11/08/20 19:53 - Social History Does the pt smoke?: Yes Smoking Status: Current every day smoker Does the pt drink ETOH?: Yes Does the pt have substance abuse?: Yes - Immunizations Immunizations are current?: Yes Immunizations: TDAP >10years/unknown, Other immun current - POLST Patient has POLST: No PD ED PE NORMAL - Vitals Vital signs reviewed: Yes - General General: Alert and oriented X 3, No acute distress, Well developed/nourished - HEENT HEENT: Atraumatic, PERRL, EOMI - Neck Neck: Supple, no meningeal sign - Cardiac Cardiac: Other (borderline tachycardic rate, regular rhythm) - Respiratory Respiratory: No respiratory distress, Clear bilaterally - Abdomen Abdomen: Non tender, Non distended - Derm Derm: Normal color, Warm and dry - Extremities Extremities: No deformity - Neuro Neuro: Alert and oriented X 3 - Psych Psych: Normal mood, Normal affect Results - Vitals Vitals: Vital Signs - 24 hr 11/08/20 19:49 Temperature 36.6 C Heart Rate 104 H Respiratory 14 Rate Blood Pressure 138/97 H O2 Saturation 95 Oxygen O2 Source Room air PD MEDICAL DECISION MAKING - ED course ED course: 29-year-old woman presents for evaluation of persistent URI symptoms for 2 weeks. Oxygen saturation is 98% on room air on my exam and her lungs are clear. CXR noncontributory. She has a covid test pending and I advised quarantine with symptomatic treatment in the interim. return precautions given. plan to f/u with pmd. Departure - Departure Disposition: 01 Home, Self Care Clinical Impression: Viral upper respiratory illness Condition: Good Instructions: ED Viral Syndrome Comments: You were seen in the emergency department for viral upper respiratory infection. You should quarantine at home until your Covid results come back. Make sure that you use a coolmist humidifier at nighttime, get lots of rest and stay well- hydrated. Your chest x-ray did not show any signs of pneumonia but please return to the emergency department if you continue to have any new or worsening symptoms or have other concerns.
--- NOTE | 2020-11-08 22:43 | XRAY Report ---
PROCEDURE: Chest 1 View X-Ray INDICATIONS: SOA, cough X 2 weeks TECHNIQUE: One view of the chest was acquired. COMPARISON: None FINDINGS: Surgical changes and devices: None. Lungs and pleura: No pleural effusions or pneumothorax. Lungs are clear. Mediastinum: Mediastinal contours appear normal. Heart size is normal. Bones and chest wall: No suspicious bony lesions. Overlying soft tissues appear unremarkable. IMPRESSION: No acute cardiopulmonary abnormality. Reviewed by: Pino Magana on 11/08/2020 10:42 PM PDT Approved by: Pino Magana on 11/08/2020 10:42 PM PDT Station ID: [id number]
== END 2020-11-08 21:44 | disposition home or self-care (01) ==
LOC: ED 19:38
DX: J06.9 Acute upper respiratory infection, unspecified (principal); B97.89 Other viral agents as the cause of diseases classified elsewhere; J45.909 Unspecified asthma, uncomplicated; F17.200 Nicotine dependence, unspecified, uncomplicated
CPT/HCPCS: 71045; 99283; A9270

== ENCOUNTER 2020-12-19 20:12 | Emergency (ER) | payer MEDICARE, MEDICAID ==
--- NOTE | 2020-12-19 21:58 | XRAY Report ---
PROCEDURE: Elbow 3 View LT INDICATIONS: Trauma TECHNIQUE: 3 views of the elbow were acquired. COMPARISON: None FINDINGS: Bones: No fractures or dislocations. No suspicious bony lesions. Soft tissues: No elbow joint effusion. No suspicious soft tissue calcifications. IMPRESSION: No acute osseous abnormality. Reviewed by: Balbir Duval MD on 12/19/2020 9:57 PM PDT Approved by: Balbir Duval MD on 12/19/2020 9:57 PM PDT Station ID: [id number]
--- NOTE | 2020-12-19 21:59 | XRAY Report ---
PROCEDURE: Wrist 4 View LT INDICATIONS: Trauma TECHNIQUE: 4 views of the wrist were acquired. COMPARISON: None. FINDINGS: Bones: No fractures or dislocations. No suspicious bony lesions. Scaphoid view: Intact. Soft tissues: No suspicious soft tissue calcifications. IMPRESSION: No acute osseous abnormality. Reviewed by: Balbir Duval MD on 12/19/2020 9:58 PM PDT Approved by: Balbir Duval MD on 12/19/2020 9:58 PM PDT Station ID: [id number]
--- NOTE | 2020-12-19 22:51 | ED Physician Documentation ---
PD HPI UPPER EXT INJURY - Stated complaint Stated Complaint: L WRIST/ELBOW INJURY - Chief complaint Chief Complaint: Neuro - History obtained from History obtained from: Patient - History of Present Illness Location: Left, Elbow, Wrist Type of injury: Fall Where injury occurred: Home Timing - onset: Today (She states she gets episodic migraines and will get lightheaded and fall at the onset of these. She did so today and landed onto her elbow and wrist.) Associated symptoms: No: Weakness, Numbness Similar symptoms before: Diagnosis (She has had the fainting episodes with her migraines in the past. That portion does not bother her. 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 : Chronic bladder infection HEENT: None Psych: Anxiety, Bipolar disorder Musculoskeletal: None Derm: None - Past Surgical History Past Surgical History: Yes General: Cholecystectomy, Appendectomy /FRENCH TEACHER: Tubal ligation, Hysterectomy, LEEP (Cervical surgery) - Present Medications Home Medications: Ambulatory Orders Medication Instructions Recorded Confirmed Albuterol Sulfate [Proventil Hfa 1 - 2 puffs IH Q4H PRN #1 10/26/17 08/17/20 Inhaler] hfa.aer.ad oxyCODONE ER [OxyCONTIN] 10 mg PO TID 09/07/19 08/17/20 ARIPiprazole [Abilify] 30 mg PO DAILY 08/17/20 08/17/20 Verapamil [Calan] 80 mg PO DAILY 08/17/20 08/17/20 - Allergies Allergies/Adverse Reactions: Allergies Allergy/AdvReac Type Severity Reaction Status Date / Time bupropion HCl * Allergy Rash Verified 12/19/20 20:18 [From Wellbutrin] lamotrigine [From Lamictal] Allergy Rash Verified 12/19/20 20:18 morphine Allergy Rash Verified 09/07/21 20:18 hydrocodone AdvReac Unknown Verified 12/19/20 20:18 - Social History Does the pt smoke?: Yes Smoking Status: Current every day smoker Does the pt drink ETOH?: Yes Does the pt have substance abuse?: Yes - Immunizations Immunizations are current?: Yes Immunizations: TDAP >10years/unknown, Other immun current - POLST Patient has POLST: No PD ED PE NORMAL - Vitals Vital signs reviewed: Yes - General General: Alert and oriented X 3, No acute distress (though is guarding ROM of the left wrist and te), Well developed/nourished - HEENT HEENT: Atraumatic - Neck Neck: Supple, no meningeal sign, No bony TTP - Derm Derm: Normal color, Warm and dry - Extremities Extremities: Other (The wrist is tender along the dorsal ulnar aspect without any obvious deformity or swelling. The elbow is tender posteriorly without any deformity or effusion.) - Neuro Neuro: Alert and oriented X 3, No motor deficit, No sensory deficit, Normal speech Results - Vitals Vitals: Oxygen O2 Source Room air - Rads (name of study) elbow Radiology: Prelim report reviewed (no fractures), See rad report wrist Radiology: Prelim report reviewed (no fractures), See rad report PD MEDICAL DECISION MAKING - ED course Complexity details: reviewed results, considered differential, d/w patient Departure - Departure Disposition: 01 Home, Self Care Clinical Impression: Elbow sprain Qualifiers: Encounter type: initial encounter Laterality: left Qualified Code(s): S53.402A - Unspecified sprain of left elbow, initial encounter Wrist sprain Qualifiers: Encounter type: initial encounter Laterality: left Qualified Code(s): S63.502A - Unspecified sprain of left wrist, initial encounter Condition: Stable Record reviewed to determine appropriate education?: Yes Instructions: ED Sprain Elbow Follow-Up: Esvin Chu MD [Primary Care Provider] - Comments: Fractures are seen on your wrist and elbow x-rays. Presume a sprain of both related to falling onto it. Use a sling to help reduce motion in both the elbow and the wrist over the next several days to week. Continue some ibuprofen 2-3 times a day. Add Tylenol if needed for pains. Ice periodically to the sore areas for swelling. I would anticipate improvement over the next several days and resolved by 4 to 7 days back to a fairly normal range of motion and use. Recheck if not improved in that timeframe. Return if worse. Discharge Date/Time: 12/19/20 23:06
[2020-12-19] MEDS ORDERED: oxyCODONE 5 MG TABLET PO STA (22:56)
[2020-12-19 23:07] VITALS: BP 150/82
== END 2020-12-19 23:06 | disposition home or self-care (01) ==
LOC: ED 20:12
DX: S53.402A Unspecified sprain of left elbow, initial encounter (principal); S63.502A Unspecified sprain of left wrist, initial encounter; W19.XXXA Unspecified fall, initial encounter; Y92.009 Unspecified place in unspecified non-institutional (private) residence as the place of occurrence of the external cause; F17.200 Nicotine dependence, unspecified, uncomplicated
CPT/HCPCS: 73080; 73110; 99282; 99283; A9270

== ENCOUNTER 2020-12-20 08:00 | Outpatient (CLI) | payer MEDICARE, MEDICAID | END 2020-12-20 23:59 | disposition home or self-care (01) | LOC: NS 08:00 | PROVIDERS: ATTEND Family Medicine | DX: Z71.3 Dietary counseling and surveillance (principal); E66.01 Morbid (severe) obesity due to excess calories; Z68.42 Body mass index [BMI] 45.0-49.9, adult | CPT/HCPCS: 97802 ==

== ENCOUNTER 2020-12-20 13:41 | Outpatient (CLI) | payer MEDICARE, MEDICAID | END 2020-12-20 13:42 | disposition home or self-care (01) | LOC: NS 13:41 | PROVIDERS: ATTEND Family Medicine | DX: Z71.3 Dietary counseling and surveillance (principal); E66.01 Morbid (severe) obesity due to excess calories; Z68.42 Body mass index [BMI] 45.0-49.9, adult | CPT/HCPCS: 97802 ==

== ENCOUNTER 2021-02-13 15:51 | Emergency (ER) | payer MEDICARE, MEDICAID ==
[2021-02-13] MEDS ORDERED: diphenhydrAMINE INJ 50 MG/ML VIAL IVP STA (16:19)
[2021-02-13] MEDS ORDERED: DROPERIDOL 5 MG/2 ML VIAL IVP STA (16:19)
[2021-02-13] MEDS ORDERED: KETOROLAC 30 MG/ML VIAL IVP STA (16:19)
--- NOTE | 2021-02-13 16:43 | CT Report ---
PROCEDURE: HEAD WO INDICATIONS: headache, posterior TECHNIQUE: Noncontrast 4.5 mm thick angled axial sections acquired from the foramen magnum to the vertex. For r adiation dose reduction, the following was used: automated exposure control, adjustment of mA and/or kV according to patient size. COMPARISON: None. FINDINGS: Image quality: Excellent. CSF spaces: Basal cisterns are patent. No extra-axial fluid collections. Ventricles are normal in size and shape. Brain: No midline shift. No intracranial masses or hemorrhage. Restrepo-white matter interface is norm al. Skull and face: Calvarium and visualized facial bones are intact, without suspicious lesions. Sinuses: Visualized sinuses and mastoids are clear. IMPRESSION: No CT evidence of acute intracranial pathology. Reviewed by: Max Marcelo MD on 02/13/2021 4:41 PM PDT Approved by: Max Marcelo MD on 02/13/2021 4:41 PM PDT Station ID: [id number]
[2021-02-13 16:46] LABS: BASOPHILS # (AUTO) 0.1 10^3/uL (0.0-0.1); BASOPHILS % (AUTO) 0.4 %; EOSINOPHILS # (AUTO) 0.1 10^3/uL (0.0-0.7); HCT - HEMATOCRIT 38.7 % (37.0-47.0); HGB - HEMOGLOBIN 12.4 g/dL (12.0-16.0); LYMPHOCYTES # (AUTO) 3.1 10^3/uL (1.5-3.5); LYMPHOCYTES % (AUTO) 22.3 %; MEAN CORPUSCULAR VOLUME 93.5 fL (81.0-99.0); MEAN PLATELET VOLUME 9.2 fL (7.9-10.8); MONOCYTES # (AUTO) 0.7 10^3/uL (0.0-1.0); MONOCYTES % (AUTO) 4.7 %; NEUTROPHILS % (AUTO) 71.2 %; PLT - PLATELET COUNT 290 10^3/uL (130-450); RED BLOOD COUNT 4.14 10^6/uL (4.20-5.40); RED CELL DISTRIBUTION WIDTH 13.4 % (12.0-15.0)
--- NOTE | 2021-02-13 16:46 | ED Physician Documentation ---
PD HPI HEADACHE - Stated complaint Stated Complaint: RT SIDE NUMB/HEADACHE/BLURRED VISION - Chief complaint Chief Complaint: Neuro - History obtained from History obtained from: Patient - History of Present Illness Timing - onset: Today Timing - onset during: Rest Timing - duration: Hours (3) Timing - details: Gradual onset Pain level max: 9 Pain level now: 9 Location: Back Quality: Throbbing, Aching Associated symptoms: No: Fever, Stiff neck, Nausea, Vomiting, Weakness, Numbness, Syncope, Seizure, Eye pain, Vision changes Improved by: Rest, Dark room Worsened by: Light, Noise Contributing factors: No: Anticoagulated, Possible carbon monoxide, Hypertension, Recent illness, Trauma - Additional information Additional information: 30-year-old female with a longstanding history of migraines and neurological deficits with her migraines presents with a worsening migraine headache today, she feels like her right arm is not working correctly and that her right side of her face is numb. Took Imitrex at home without relief. Review of Systems Ten Systems: 10 systems reviewed and negative Constitutional: denies: Fever, Chills Eyes: reports: Photophobia. denies: Decreased vision Ears: denies: Ear pain Nose: denies: Rhinorrhea / runny nose, Congestion GI: denies: Vomiting, Diarrhea Skin: denies: Rash Musculoskeletal: denies: Neck pain, Back pain Neurologic: reports: Headache. 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 : Chronic bladder infection HEENT: None Psych: Anxiety, Bipolar disorder Musculoskeletal: None Derm: None - Past Surgical History Past Surgical History: Yes General: Cholecystectomy, Appendectomy /PROCESS TANK TENDER: Tubal ligation, Hysterectomy, LEEP (Cervical surgery) - Present Medications Home Medications: Ambulatory Orders Medication Instructions Recorded Confirmed Albuterol Sulfate [Proventil Hfa 1 - 2 puffs IH Q4H PRN #1 10/26/17 08/17/20 Inhaler] hfa.[email or web address].ad oxyCODONE ER [OxyCONTIN] 10 mg PO TID 09/07/19 08/17/20 ARIPiprazole [Abilify] 30 mg PO DAILY 08/17/20 08/17/20 Verapamil [Calan] 80 mg PO DAILY 08/17/20 08/17/20 - Allergies Allergies/Adverse Reactions: Allergies Allergy/AdvReac Type Severity Reaction Status Date / Time bupropion HCl * Allergy Rash Verified 02/13/21 15:54 [From Wellbutrin] lamotrigine [From Lamictal] Allergy Rash Verified 02/13/21 15:54 morphine Allergy Rash Verified 02/13/21 15:54 hydrocodone AdvReac Unknown Verified 02/13/21 15:54 - Social History Does the pt smoke?: Yes Smoking Status: Current every day smoker Does the pt drink ETOH?: Yes Does the pt have substance abuse?: Yes - Immunizations Immunizations are current?: Yes Immunizations: TDAP >10years/unknown, Other immun current - POLST Patient has POLST: No PD ED PE NORMAL - Vitals Vital signs reviewed: Yes - General General: Alert and oriented X 3, No acute distress, Well developed/nourished - HEENT HEENT: Atraumatic, PERRL, EOMI, Ears normal, Moist mucous membranes, Pharynx benign, Other - Neck Neck: Supple, no meningeal sign, No bony TTP - Cardiac Cardiac: RRR, Strong equal pulses - Respiratory Respiratory: No respiratory distress, Clear bilaterally - Abdomen Abdomen: Soft, Non tender, Non distended - Derm Derm: Warm and dry - Extremities Extremities: No edema, No calf tenderness / cord - Neuro Neuro: Alert and oriented X 3, manager animation 2-12 intact, No motor deficit, No sensory deficit, Normal speech, Other (NIH stroke scale 0) Eye Opening: Spontaneous Motor: Obeys Commands Verbal: Oriented GCS Score: 15 - Psych Psych: Normal mood, Normal affect Results - Vitals Vitals: Vital Signs - 24 hr 02/13/21 02/13/21 02/13/21 15:54 16:04 16:30 Temperature 36.3 C L 37.0 C Heart Rate 112 H 64 98 Respiratory 20 16 15 Rate Blood Pressure 175/97 H 103/89 H 138/94 H O2 Saturation 100 98 100 02/13/21 02/13/21 02/13/21 16:47 17:00 17:30 Temperature 36.8 C Heart Rate 90 92 84 Respiratory 14 16 12 Rate Blood Pressure 138/94 H 136/70 H 144/72 H O2 Saturation 100 99 99 Oxygen O2 Source Room air - Labs Labs: Laboratory Tests 02/13/21 02/13/21 16:40 16:40 WBC 14.0 H RBC 4.14 L Hgb 12.4 Hct 38.7 MCV 93.5 MCH 30.0 MCHC 32.0 RDW 13.4 Plt Count 290 MPV 9.2 Neut # (Auto) 10.0 H Lymph # (Auto) 3.1 [place] # (Auto) 0.7 Eos # (Auto) 0.1 Baso # (Auto) 0.1 Absolute Nucleated RBC 0.00 Nucleated RBC % 0.0 Sodium 139 Potassium 3.8 Chloride 103 Carbon Dioxide 27 Anion Gap 9.0 BUN 9 Creatinine 0.7 Estimated GFR (MDRD) 97 Glucose 111 H Calcium 9.4 Total Bilirubin 0.7 AST 27 ALT 31 Alkaline Phosphatase 103 Total Protein 7.6 Albumin 4.3 Globulin 3.3 Albumin/Globulin Ratio 1.3 - Rads (name of study) Head CT Radiology: Final report received, EMP read contemporaneously, See rad report (No acute abnormality) PD MEDICAL DECISION MAKING - ED course Complexity details: reviewed results, re-evaluated patient, considered differential, d/w patient ED course: 30-year-old female with what appears to be a complex migraine. She was treated with Toradol, droperidol, Benadryl and a single dose of Dilaudid. Headache resolved. Neurological symptoms resolved. Back to her normal baseline. We will have her follow-up with her doctor for further care. Patient counseled regarding signs and symptoms for which I believe and urgent re-evaluation would be necessary. Patient with good understanding of and agreement to plan and is comfortable going home at this time This document was made in part using voice recognition software. While efforts are made to proofread this document, sound alike and grammatical errors may occur. Departure - Departure Disposition: 01 Home, Self Care Clinical Impression: Migraines Qualifiers: Migraine type: unspecified Status migrainosus presence: without status migrainosus Intractability: not intractable Qualified Code(s): G43.909 - Migraine, unspecified, not intractable, without status migrainosus Condition: Good Instructions: ED Headache Migraine Follow-Up: Esvin Chu MD [Primary Care Provider] - Within 1 week Comments: Continue your medications at home. Please follow-up with your doctor for further care. Return if you worsen. Discharge Date/Time: 02/13/21 17:57
[2021-02-13 17:11] LABS: ALBUMIN 4.3 g/dL (3.2-5.5); ALBUMIN/GLOBULIN RATIO 1.3 (1.0-2.2); BILIRUBIN,TOTAL 0.7 mg/dL (0.2-1.0); CALCIUM 9.4 mg/dL (8.5-10.3); CREATININE 0.7 mg/dL (0.4-1.0); POTASSIUM 3.8 mmol/L (3.5-5.0); TOTAL PROTEIN 7.6 g/dL (6.7-8.2)
[2021-02-13] MEDS ORDERED: HYDROmorphone 1 MG/ML CARPUJECT IVP STA (17:27)
[2021-02-13 17:38] VITALS: BP 144/72
== END 2021-02-13 17:57 | disposition home or self-care (01) ==
LOC: ED 15:51
DX: G43.909 Migraine, unspecified, not intractable, without status migrainosus (principal); R20.0 Anesthesia of skin; H53.149 Visual discomfort, unspecified; F17.200 Nicotine dependence, unspecified, uncomplicated
CPT/HCPCS: 36415; 70450; 80053; 85025; 96374; 96375; 99284; 99285; J1170; J1200

== ENCOUNTER 2021-07-01 17:50 | Emergency (ER) | payer MEDICARE, MEDICAID ==
[2021-07-01] MEDS ORDERED: PROCHLORPERAZINE 10 MG/2 ML VIAL IVP STA (18:03)
[2021-07-01] MEDS ORDERED: SODIUM CHLORIDE 0.9% 1,000 ML IV STA (18:03)
[2021-07-01] MEDS ORDERED: diphenhydrAMINE INJ 50 MG/ML VIAL IVP STA (18:03)
--- NOTE | 2021-07-01 18:13 | ED Physician Documentation ---
History of Present Illness - Stated complaint Stated Complaint: MIGRAINE,VOMITING,WEAK,DEHYDRATED - Chief complaint Chief Complaint: Neuro - Additonal information Additional information: 30-year-old female who has a history of a chronic migraine disorder presents to the emergency department for evaluation and treatment of 4 days unabated headache. She reports chronic headaches for which she takes oxycodone. She has tried arresting this headache with Imitrex, Benadryl and Zofran to no relief. She is followed by a neurologist in [place]. She states when the headaches get so severe she blacks out. Headache is generalized. Pressure and throbbing- like. She endorses light and noise sensitivity. This has been common with previous headaches. No fevers. She has had some mild diarrhea. This headache is typical of her previous migraines Review of Systems Constitutional: denies: Fever, Chills Eyes: reports: Reviewed and negative Ears: reports: Reviewed and negative Throat: reports: Reviewed and negative Cardiac: reports: Reviewed and negative Respiratory: reports: Reviewed and negative GI: reports: Vomiting, Diarrhea : reports: Reviewed and negative Skin: reports: Reviewed and negative Neurologic: reports: Syncope, Headache. 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 : Chronic bladder infection HEENT: None Psych: Anxiety, Bipolar disorder Musculoskeletal: None Derm: None - Past Surgical History Past Surgical History: Yes General: Cholecystectomy, Appendectomy /TRUCK HEADLIGHT ASSEMBLER: Tubal ligation, Hysterectomy, LEEP (Cervical surgery) - Present Medications Home Medications: Ambulatory Orders Medication Instructions Recorded Confirmed Albuterol Sulfate [Proventil Hfa 1 - 2 puffs IH Q4H PRN #1 10/26/17 08/17/20 Inhaler] hfa.[email or web address].ad oxyCODONE ER [OxyCONTIN] 10 mg PO TID 09/07/19 08/17/20 ARIPiprazole [Abilify] 30 mg PO DAILY 08/17/20 08/17/20 Verapamil [Calan] 80 mg PO DAILY 08/17/20 08/17/20 - Allergies Allergies/Adverse Reactions: Allergies Allergy/AdvReac Type Severity Reaction Status Date / Time bupropion HCl * Allergy Rash Verified 02/13/21 15:54 [From Wellbutrin] lamotrigine [From Lamictal] Allergy Rash Verified 02/13/21 15:54 morphine Allergy Rash Verified 02/13/21 15:54 hydrocodone AdvReac Unknown Verified 02/13/21 15:54 - Social History Does the pt smoke?: Yes Smoking Status: Current every day smoker Does the pt drink ETOH?: Yes Does the pt have substance abuse?: Yes - Immunizations Immunizations are current?: Yes Immunizations: TDAP >10years/unknown, Other immun current - POLST Patient has POLST: No PD ED PE EXPANDED - General General: Alert, No acute distress, Other (morbid obesity) - Neck Neck: Supple w/out meningeal sx. No: Adenopathy - Cardiac Cardiac: Regular Rate, Radial strong equal, Pedal strong equal, Cap refill < 2 sec. No: Murmur Present - Respiratory Respiratory: Clear to ausultation violette. No: Distress, Labored - Abdomen Abdomen: Normal Bowel sounds. No: Tender to palpation - Derm Derm: Normal color, Warm and dry. No: Rash - Neuro Neuro: Alert and Oriented X 3, CNII-XII intact, Normal gait, Normal finger nose, Normal speech - GCS Eye Opening: Spontaneous Motor: Obeys Commands Verbal: Oriented Total: 15 Results - Vitals Vitals: Vital Signs - 24 hr 07/01/21 17:55 Temperature 36.6 C Heart Rate 102 H Respiratory 19 Rate Blood Pressure 140/82 H O2 Saturation 97 Oxygen O2 Source Room air PD MEDICAL DECISION MAKING - ED course Complexity details: reviewed results, re-evaluated patient, considered differential, d/w patient ED course: 30-year-old female who has a history of chronic migraines (For which she takes oxycodone daily. She has also tried to break this headache with Benadryl and Imitrex.) presents to the emergency department with 4 days of unabated headache. This headache is similar to her previous episodes. She does endorse occasionally blacking out due to migraines which is not a new symptom. She presents without fevers. No focal neuro or cerebellar deficits. Initially she was given a liter of IV fluids, Benadryl and Compazine with minimal relief of symptoms. We then escalated her care to include Phenergan and Dilaudid. On reassessment she result reports that her headache has now reduced to a level 4 and her nausea is mostly gone. She feels improved and would like to be discharged home. History and exam is most consistent with her known migraine history. Given the lack of falls or trauma low suspicion for traumatic intracranial hemorrhage. Not sudden onset very low suspicion for subarachnoid hemorrhage. Without fevers or nuchal signs low suspicion for infectious etiology. I have encouraged her to continue close follow-up with her neurologist for longer-term management of her symptoms. Departure - Departure Disposition: Home, Self Care Clinical Impression: Migraine Qualifiers: Migraine type: other Status migrainosus presence: with status migrainosus Intractability: not intractable Qualified Code(s): G43.801 - Other migraine, not intractable, with status migrainosus Condition: Stable Record reviewed to determine appropriate education?: Yes Instructions: ED Headache Migraine Comments: Cindy, you were seen today in the emergency department for a migraine headache that began about 4 days ago. Here in the emergency department we did give you a liter of IV fluids as well as Compazine and Benadryl. This combination of medications did not initially improve your headache. We then gave you some Dilaudid and Phenergan and you are feeling better. It is okay to go home and sleep/rest normally. You may eat or drink as you typically would. Continue all your other previously prescribed medications. I encourage you to continue close follow-up with your neurologist to discuss longer-term management of your headaches. Return to the ER for chest pain, shortness of air fevers or worsening symptoms
[2021-07-01] MEDS ORDERED: HYDROmorphone 1 MG/ML CARPUJECT IVP STA (19:03)
[2021-07-01] MEDS ORDERED: PROMETHAZINE INJ 25 MG in SODIUM CHLORIDE 0.9% 50 ML IV STA (19:03)
[2021-07-01] MEDS ORDERED: PROMETHAZINE 25 MG/1 ML VIAL ONE (19:15)
[2021-07-01 20:03] VITALS: BP 130/80
== END 2021-07-01 20:18 | disposition home or self-care (01) ==
LOC: ED 17:50
DX: G43.801 Other migraine, not intractable, with status migrainosus (principal); F17.200 Nicotine dependence, unspecified, uncomplicated
CPT/HCPCS: 96365; 96375; 99284; 99285; J1170; J1200; J7040

== ENCOUNTER 2021-07-17 08:00 | Outpatient (CLI) | payer MEDICARE, MEDICAID ==
[2021-07-17 18:50] LABS: BASOPHILS # (AUTO) 0.1 10^3/uL (0.0-0.1); BASOPHILS % (AUTO) 0.4 %; EOSINOPHILS # (AUTO) 0.3 10^3/uL (0.0-0.7); EOSINOPHILS % (AUTO) 2.5 %; HCT - HEMATOCRIT 37.1 % (37.0-47.0); LYMPHOCYTES # (AUTO) 2.3 10^3/uL (1.5-3.5); LYMPHOCYTES % (AUTO) 18.6 %; MEAN CORPUSCULAR HEMOGLOBIN 29.6 pg (27.0-31.0); MEAN CORPUSCULAR HGB CONC 32.3 g/dL (32.0-36.0); MEAN CORPUSCULAR VOLUME 91.6 fL (81.0-99.0); MEAN PLATELET VOLUME 9.9 fL (7.9-10.8); MONOCYTES # (AUTO) 0.9 10^3/uL (0.0-1.0); MONOCYTES % (AUTO) 7.5 %; NEUTROPHILS # (AUTO) 8.7 10^3/uL (1.5-6.6); NEUTROPHILS % (AUTO) 70.5 %; PLT - PLATELET COUNT 292 10^3/uL (130-450); RED BLOOD COUNT 4.05 10^6/uL (4.20-5.40); RED CELL DISTRIBUTION WIDTH 13.8 % (12.0-15.0); WHITE BLOOD COUNT 12.4 x10^3/uL (4.8-10.8)
[2021-07-17 19:17] LABS: ALBUMIN 3.3 g/dL (3.2-5.5); ALBUMIN/GLOBULIN RATIO 0.8 (1.0-2.2); BILIRUBIN,TOTAL 0.3 mg/dL (0.2-1.0); CREATININE 0.7 mg/dL (0.4-1.0); TOTAL PROTEIN 7.2 g/dL (6.7-8.2)
[2021-07-17 19:22] LABS: HCG,QUALITATIVE BLOOD NEGATIVE
== END 2021-07-17 23:59 | disposition home or self-care (01) ==
LOC: LAB.N 08:00
PROVIDERS: ATTEND Nurse Practitioner
DX: K52.9 Noninfective gastroenteritis and colitis, unspecified (principal)
CPT/HCPCS: 36415; 80053; 81001; 81003; 82150; 83690; 84703; 85025; 87086

== ENCOUNTER 2021-08-11 08:00 | Outpatient (CLI) | payer MEDICARE, MEDICAID ==
--- NOTE | 2021-08-11 14:03 | XRAY Report ---
PROCEDURE: Foot 3 View LT INDICATIONS: LEFT FOOT PAIN TECHNIQUE: 3 views of the foot were acquired. COMPARISON: None FINDINGS: Bones: No fractures or dislocations. No suspicious bony lesions. Soft tissues: No tibiotalar joint effusion. Achilles tendon appears normal. IMPRESSION: No visualized acute fracture or dislocation. However, occult injury cannot be excluded. Recommend anirudh rt interval imaging follow-up in 7-10 days as clinically indicated for additional evaluation. Reviewed by: Radha Silver MD on 08/11/2021 2:01 PM PDT Approved by: Radha Silver MD on 08/11/2021 2:01 PM PDT Station ID: [id number]
== END 2021-08-11 23:59 | disposition home or self-care (01) ==
LOC: DI.N 08:00
PROVIDERS: ATTEND Physician Assistant
DX: M79.672 Pain in left foot (principal)

== ENCOUNTER 2021-10-30 14:43 | Outpatient (CLI) | payer MEDICARE, MEDICAID | END 2021-10-30 14:44 | disposition home or self-care (01) | LOC: RT 14:43 | PROVIDERS: ATTEND Surgery | DX: E66.01 Morbid (severe) obesity due to excess calories (principal); Z68.42 Body mass index [BMI] 45.0-49.9, adult | CPT/HCPCS: 93005 ==

== ENCOUNTER 2021-12-12 14:21 | Outpatient (CLI) | payer MEDICARE, MEDICAID ==
[2021-12-12 15:08] VITALS: BP 131/78
--- NOTE | 2021-12-12 15:08 | SLEEP CARE CONSULTATION ---
Information from patient questionnaire entered by Sana Banuelos MA. I have reviewed and concur with the information entered by Sana Banuelos MA. This document represents the service I personally performed and the decisions made by , Florecita Miller ARNP. History of Present Illness Service Date and Time: 12/12/2021 1421 Initial [place] Sleepiness Scale score: 12 (10/26/2021) Current [place] Sleepiness Scale score: 15 (12/12/2021) Additional HPI information: CARMELO SPEAR returns for follow up and results of the recently performed polysomnography. I explained the pathophysiology behind obstructive sleep apnea. We then spent quite a bit of time discussing different treatment options. For mild obstructive sleep apnea, surgery and oral appliance are alternatives to nasal CPAP therapy but in moderate or severe cases, nasal CPAP is the most effective and reliable treatment. Because apnea is primarily in supine position, then positional management therapy could be effective. Methods discussed such as positioning with pillows to prevent supine sleep. I reviewed the impact of weight changes on sleep apnea and strongly recommended losing weight. After some discussion, the patient opted to go with the nasal CPAP therapy. Nasal autoCPAP set at 4-15 cmH20 will be ordered with rationale explained. A manual titration study will be ordered if unable to find optimal pressure with office adjustments. I explained how CPAP machine works and what to expect when using the machine. Using CPAP every night in order to get used to it was emphasized. Patient advised to put CPAP mask on before getting into bed so as not to fall asleep without CPAP. To assist acclimation to CPAP use, it could also be used for a short time during day while reading or watching TV. The patient was instructed to call the CPAP supplier to discuss any mechanical problem that may occur. If the mask given is uncomfortable or is difficult to keep on through the night even with adjustment, contact the CPAP supplier as many will replace with another mask style if notified before 30 days. If snoring or perceives is not getting enough air or too much air from the machine, notify this office. Patient does not drink alcohol. Patient was cautioned about risks of drowsy driving until sleepiness symptoms resolve. Patient denies drowsy driving. Sleep Study - Results Type of Sleep Study: Polysomnography (F/U POLY, 11/18/2021 [facility], [place],) Prior sleep studies: Yes Year and Where: [facility] 8-9 YEARS AGO Polysomnography/Home Sleep Study results: IMPRESSION: The quality of the study is good. The patient had normal sleep efficiency. The sleep architecture was abnormal for sleep fragmentation and reduced amount of time spent in REM and slow wave sleep (N3). Respiratory monitoring showed severe central sleep apnea-hypopnea (AHI = 33.9) associated with frequent arousals, oxyhemoglobin desaturation and mild hypoxia (geri oxygen saturation of 83%). The patient only slept supine during this study (supine AHI = 33.9; non-supine = 0.00). Snore was light in intensity. There was no significant periodic leg movement of sleep. Cardiac rhythm was normal sinus rhythm without significant arrhythmia. No abnormal behavior (parasomnia) observed during the night. Allergies and Home Medications Known drug allergies: Yes (SEE LIST) Drug allergies reviewed: Yes Home medication list reviewed: Yes (no changes) Allergy and home medication list: Allergies bupropion HCl * [From Wellbutrin] Allergy (Verified 02/13/21 15:54) Rash morphine Allergy (Verified 02/13/21 15:54) Rash hydrocodone Adverse Reaction (Verified 02/13/21 15:54) Unknown VERIFIED BY Carrillo BANUELOS CMA [facility], 12/12/2021 1445 Review of Systems Review of systems same as previous: Yes (no changes) Physical Exam Vital signs obtained and entered by: Carrillo BANUELOS CMA [facility] Blood Pressure: 131/78 (R20, P 62, RIGHT) Cuff size: wrist Heart Rate: 62 O2 Saturation: 97 (PAPER MASK) Height: 6 ft Weight: 331 lb (CLOTHES) Weight change since last visit: GETTING READY FOR WEIGHT LOSS SURGERY Body Mass Index: 44.9 BMI Classification: Morbidly Obese Impression and Plan 1. Central Sleep Apnea-Hypopnea Syndrome, severe, with lowest oxygen saturation of 83%. Obviously this is the cause of the patients symptoms of unrefreshed sleep, and excessive daytime sleepiness. Positive pressure therapy could benefit hypertension, fibromyalgia, anxiety, asthma, depression, PTSD and epilepsy. As mentioned above, the patient will be started on nasal autoCPAP therapy with pressure set at 4-15 cmH2O. A manual titration study will be ordered to find optimal treatment pressure because she has central sleep apnea and may need alternate PAP therapy to control apneas. Compliance guidelines also reviewed. A copy of compliance guidelines will be given for reference at check out. * Nasal auto CPAP therapy, pressure at 4-15 cm H2O. * Titration study * Attempt to lose weight. * Avoid alcohol consumption near bedtime. * The patient is again cautioned about driving until sleepiness completely resolves. (patient drives rarely due to seizures) * Return one month after CPAP obtained. I will assess response to therapy and compliance at that time. Counseling Topics: Weight loss health impact Prescriptions: Auto CPAP Visit Type: In Office Time Spent with Patient (minutes): 22 Provider Statement: I spent 100% of the Face to Face Visit with the patient with greater than 50% spent counseling the patient and coordination of care.
== END 2021-12-12 14:22 | disposition home or self-care (01) ==
LOC: SC 14:21
PROVIDERS: ATTEND Nurse Practitioner Family
DX: G47.31 Primary central sleep apnea (principal); E66.01 Morbid (severe) obesity due to excess calories; Z68.41 Body mass index [BMI] 40.0-44.9, adult
CPT/HCPCS: 99213; G0463; 99212

== ENCOUNTER 2022-01-22 16:55 | Outpatient (CLI) | payer MEDICARE, MEDICAID | END 2022-01-22 16:56 | disposition home or self-care (01) | LOC: LAB.N 16:55 | PROVIDERS: ATTEND Nurse Practitioner Family | DX: Z01.812 Encounter for preprocedural laboratory examination (principal); Z20.822 Contact with and (suspected) exposure to COVID-19 ==

== ENCOUNTER 2022-02-14 09:00 | Outpatient (CLI) | payer MEDICARE, MEDICAID | END 2022-02-14 09:01 | disposition home or self-care (01) | LOC: LAB.N 09:00 | PROVIDERS: ATTEND Nurse Practitioner Family | DX: Z01.812 Encounter for preprocedural laboratory examination (principal); Z20.822 Contact with and (suspected) exposure to COVID-19 ==

== ENCOUNTER 2022-02-19 14:29 | Emergency (ER) | payer MEDICARE, MEDICAID ==
[2022-02-19 14:37] VITALS: BP 151/110
--- NOTE | 2022-02-19 15:41 | Ultrasound Report ---
PROCEDURE: Duplex Ext Veins Left INDICATIONS: Redness, pain, swelling TECHNIQUE: Real-time imaging, as well as color and pulse Doppler interrogation, were performed of the lower extr emity deep veins from the inguinal ligament to the popliteal fossa. COMPARISON: None. FINDINGS: The deep veins are normally compressible, and free of intraluminal thrombus. Color and pu lse Doppler demonstrate normal phasic intraluminal flow. There is normal augmentation response to di stal compression maneuver. Fluid collection at the anterior left calf area of interest measuring 5.3 x 1.7 x 2.1 cm. IMPRESSION: No sonographic evidence of DVT. Fluid collection at the site of pain and redness in the anterior left calf measuring 5.3 x 1.7 x 2.1 cm could represent seroma, hematoma, or abscess. Reviewed by: Jaren Maradiaga MD on 02/19/2022 3:40 PM PST Approved by: Jaren Maradiaga MD on 02/19/2022 3:40 PM PST Station ID: [id number]
--- NOTE | 2022-02-19 16:39 | ED Physician Documentation ---
PD HPI LOWER EXT INJURY - Stated complaint Stated Complaint: LT LEG PX - Chief complaint Chief Complaint: Ext Problem - History obtained from History obtained from: Patient - History of Present Illness PD HPI LOW EXT INJURY LOCATION: Left, Lower leg Type of injury: Other (plane flight 2 weeks ago). No: Fall, Twist, Blunt / blow Where injury occurred: Home Timing - onset: How many weeks ago (1) Timing - duration: Weeks (1) Timing - details: Gradual onset (has had area of redness and swelling increasing over a week in area of lower anterior lower leg, spreading up to mid/proximal anterior lower leg. Red, warm, tender. No drainage. Small abrasion lower castelan without drainage.), Still present Worsened by: Palpating Associated symptoms: Swelling, Discolored (redness). No: Weakness, Numbness Similar symptoms before: Has not had sx before Recently seen: Clinic (seen at walk In today and referred to ER for concern of DVT.) Review of Systems Constitutional: denies: Fever, Chills Nose: denies: Rhinorrhea / runny nose, Congestion Throat: denies: Sore throat Respiratory: denies: Cough GI: denies: Abdominal Pain, Nausea, Vomiting Skin: reports: Rash, Abrasion (s) (has small skin abrasion lower anterior lower leg.). denies: Lesions, Laceration (s) Musculoskeletal: reports: Extremity swelling. denies: Neck pain, Back pain Neurologic: reports: Focal weakness. 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 GAS METAL ARC: Tubal ligation, Hysterectomy, LEEP (Cervical surgery) - Present Medications Home Medications: Ambulatory Orders Medication Instructions Recorded Confirmed Albuterol Sulfate [Proventil Hfa 1 - 2 puffs IH Q4H PRN #1 10/26/17 08/17/20 Inhaler] [email or web address] oxyCODONE ER [OxyCONTIN] 10 mg PO TID 09/07/19 08/17/20 ARIPiprazole [Abilify] 30 mg PO DAILY 08/17/20 08/17/20 Verapamil [Calan] 80 mg PO DAILY 08/17/20 08/17/20 cephALEXin [Keflex] 500 mg PO QID 7 Days #28 cap 02/19/22 - Allergies Allergies/Adverse Reactions: Allergies Allergy/AdvReac Type Severity Reaction Status Date / Time bupropion HCl * Allergy Rash Verified 02/19/22 14:36 [From Wellbutrin] morphine Allergy Rash Verified 02/19/22 14:36 hydrocodone AdvReac Unknown Verified 02/19/22 14:36 - Social History Does the pt smoke?: Yes Smoking Status: Current every day smoker Does the pt drink ETOH?: Yes Does the pt have substance abuse?: Yes - Immunizations Immunizations are current?: Yes Immunizations: TDAP >10years/unknown, Other immun current - POLST Patient has POLST: No PD ED PE NORMAL - Vitals Vital signs reviewed: Yes - General General: Alert and oriented X 3, No acute distress, Well developed/nourished - Neck Neck: Supple, no meningeal sign, No adenopathy - Cardiac Cardiac: RRR, No murmur - Respiratory Respiratory: Clear bilaterally - Back Back: No CVA TTP - Derm Derm: Normal color, Warm and dry - Extremities Extremities: Other (left anterior lower leg with redness, warmth and swellling anterior. there is firmness of the tissue in area. Not feeling fluctuant. Small abrasion lower aspect of lower leg. ) - Neuro Neuro: Alert and oriented X 3, No motor deficit, Normal speech Results - Vitals Vitals: Vital Signs - 24 hr 02/19/22 14:33 Temperature 36 C L Heart Rate 81 Respiratory 16 Rate Blood Pressure 151/110 H O2 Saturation 97 Oxygen O2 Source Room air - Rads (name of study) duplex U/S Radiology: Prelim report reviewed (no DVT. Fluid collection under skin with some skin inflammation c/w hematoma, inflammation, or infection. ), See rad report PD MEDICAL DECISION MAKING - ED course Complexity details: reviewed results, considered differential (patient sent to ER for concern of DVt. Busy ER, so U/S ordered while in waiting room. Seen after that and exam clearly concerning for cellulitis/abscess. U/S already done, negative for Dvt. ), d/w patient ED course: U/S reads area of fluid anterior lower leg c/w infectious versus hematoma. No noted injury and area is tender/red. i will presume infectious.Fluid collection described on U/S as large 5 x 2 cm, but on exam feels swollen without fluctuance. I will try antibiotcs first, as i feel less of a target per se for I&D. Departure - Departure Disposition: 01 Home, Self Care Clinical Impression: Cellulitis Qualifiers: Site of cellulitis: extremity Site of cellulitis of extremity: lower extremity Laterality: left Qualified Code(s): L03.116 - Cellulitis of left lower limb Condition: Stable Record reviewed to determine appropriate education?: Yes Instructions: ED Infec Skin Cellulitis Follow-Up: Esvin Chu MD [Primary Care Provider] - Prescriptions: cephALEXin [Keflex] 500 mg PO QID 7 Days #28 cap Comments: Your ultrasound is negative for blood clots (DVT). There is a fluid collection under the skin in the area where you have the redness and swelling. This could represent collection of blood in the area called a hematoma. It could also represent a localized infection of cellulitis with developing abscess. Given the redness and tenderness in the area as well as the warmth, I would be inclined to think an infection in the area and treated with cephalexin antibiotic. Also warm towels to the area periodically to improve blood flow. Ibuprofen 4 x 3 to 4 times daily for the next several days to week. Add Tylenol every 4-6 hours if needed for pain. Continue your other usual medicines. At this point we can see if the infection improves with the antibiotics and warm compresses. However if its not improving readily or is getting bigger, over the next 1 or 2 days, then return to the ER for potential need for trying to drain the fluid collection. I sent your prescription to your preferred pharmacy. Discharge Date/Time: 02/19/22 17:39
[2022-02-19] MEDS ORDERED: cephALEXin 250 MG CAPSULE PO STA (17:04)
== END 2022-02-19 17:39 | disposition home or self-care (01) ==
LOC: ED 14:29
DX: L03.116 Cellulitis of left lower limb (principal); F17.200 Nicotine dependence, unspecified, uncomplicated
CPT/HCPCS: 93971; 99284; A9270

== ENCOUNTER 2022-03-01 11:31 | Outpatient (CLI) | payer MEDICARE, MEDICAID ==
[2022-03-01 17:43] LABS: BASOPHILS % (AUTO) 0.5 %; EOSINOPHILS # (AUTO) 0.2 10^3/uL (0.0-0.7); EOSINOPHILS % (AUTO) 2.2 %; HCT - HEMATOCRIT 34.1 % (37.0-47.0); HGB - HEMOGLOBIN 10.7 g/dL (12.0-16.0); LYMPHOCYTES # (AUTO) 2.8 10^3/uL (1.5-3.5); LYMPHOCYTES % (AUTO) 32.3 %; MEAN CORPUSCULAR HEMOGLOBIN 29.4 pg (27.0-31.0); MEAN CORPUSCULAR HGB CONC 31.4 g/dL (32.0-36.0); MEAN CORPUSCULAR VOLUME 93.7 fL (81.0-99.0); MEAN PLATELET VOLUME 9.4 fL (7.9-10.8); MONOCYTES # (AUTO) 0.6 10^3/uL (0.0-1.0); MONOCYTES % (AUTO) 6.6 %; NEUTROPHILS # (AUTO) 5.1 10^3/uL (1.5-6.6); NEUTROPHILS % (AUTO) 58.1 %; PLT - PLATELET COUNT 305 10^3/uL (130-450); RED BLOOD COUNT 3.64 10^6/uL (4.20-5.40); RED CELL DISTRIBUTION WIDTH 12.4 % (12.0-15.0); WHITE BLOOD COUNT 8.7 x10^3/uL (4.8-10.8)
[2022-03-01 18:08] LABS: % IRON SATURATION 9 % (20-50); ALBUMIN 3.6 g/dL (3.2-5.5); ALKALINE PHOSPHATASE 105 IU/L (42-121); ALT ALANINE AMINOTRANSFERASE 31 IU/L (10-60); AST ASPARTATE AMINOTRANSFERASE 22 IU/L (10-42); BILIRUBIN,TOTAL 0.2 mg/dL (0.2-1.0); BUN - BLOOD UREA NITROGEN 12 mg/dL (6-20); CALCIUM 8.9 mg/dL (8.5-10.3); CARBON DIOXIDE - CO2 28 mmol/L (21-32); CHLORIDE 102 mmol/L (101-111); CHOL/HDL RATIO 3.3 (<4.4); CHOLESTEROL 124 mg/dL; CREATININE 0.6 mg/dL (0.4-1.0); GFR - MDRD 115 (>89); GLUCOSE 88 mg/dL (70-100); HDL CHOLESTEROL 38 mg/dL; IRON 30 ug/dL (28-170); LDL CHOLESTEROL,CALCULATED 68 mg/dL; LDL/HDL RATIO 1.8 (<4.4); MAGNESIUM 2.2 mg/dL (1.7-2.8); POTASSIUM 4.2 mmol/L (3.5-5.0); SODIUM 136 mmol/L (135-145); TOTAL IRON BINDING CAPACITY 349 ug/dL (250-450); TOTAL PROTEIN 7.2 g/dL (6.7-8.2); TRANSFERRIN 249 mg/dL (192-382); TRIGLYCERIDES 90 mg/dL; VLDL CHOLESTEROL 18 mg/dL
[2022-03-01 18:13] LABS: THYROID STIMULATING HORMONE 4.83 uIU/mL (0.34-5.60)
[2022-03-01 20:37] LABS: ESTIMATED AVERAGE GLUCOSE 117 mg/dL (70-100); HEMOGLOBIN A1c% 5.7 % (4.27-6.07)
[2022-03-05 15:08] LABS: FOLATE HEMOLYSATE 310.1 ng/mL (Not Estab.); FOLATE RBC 966 ng/mL (>498); HEMATOCRIT 32.1 % (34.0-46.6)
== END 2022-03-01 11:32 | disposition home or self-care (01) ==
LOC: LAB.N 11:31
PROVIDERS: ATTEND Nurse Practitioner Family
DX: Z01.812 Encounter for preprocedural laboratory examination (principal); E66.01 Morbid (severe) obesity due to excess calories; Z68.42 Body mass index [BMI] 45.0-49.9, adult; F17.200 Nicotine dependence, unspecified, uncomplicated; Z20.822 Contact with and (suspected) exposure to COVID-19
CPT/HCPCS: 36415; 80053; 80061; 80307; 81599; 82306; 82330; 82607; 82747; 83036; 83540; 83721; 83735; 84425; 84443; 84466; 85014; 85025

== ENCOUNTER → 2022-03-23 | Outpatient (CLI) | payer MEDICARE, MEDICAID | LOC: LAB.N 08:00 | PROVIDERS: ATTEND Family Medicine | DX: R32 Unspecified urinary incontinence (principal) | CPT/HCPCS: 84703 ==

== ENCOUNTER 2022-03-25 18:37 | Emergency (ER) | payer MEDICARE, MEDICAID ==
[2022-03-25 21:23] VITALS: BP 127/85
[2022-03-25] MEDS ORDERED: DEXAMETHASONE 10 MG/ML VIAL IM STA (21:38)
[2022-03-25] MEDS ORDERED: CYCLOBENZAPRINE 10 MG TABLET PO STA (21:39)
--- NOTE | 2022-03-25 21:42 | ED Physician Documentation ---
History of Present Illness - Stated complaint Stated Complaint: BACK PX - Chief complaint Chief Complaint: Back Pain - History obtained from History obtained from: Patient - Additonal information Additional information: The patient comes to the emergency department with chief complaint of back pain in her right lower back, shooting down into her right buttock. The patient states its been going on since 4 days ago, when she reached for an ornament and felt a pop in her low back. The patient was initially seen in urgent care and found to have saddle anesthesia, so was sent emergently to [facility] for full spinal MRIs and emergent evaluation. MRI showed herniated disc in the thoracic region with mild protrusion, but cord signal was good all the way through that area. There were also some degenerative changes in the lumbar spine, but no evidence of cord compression there. The patient has been ambulatory without difficulty has had intermittent incontinence of urine. She was discharged from [facility] with instructions to use her chronic oxycodone for pain. She was not placed on a steroid or a muscle relaxer. The patient states her pain seemed a bit worse tonight and she reports that she was told that if her pain got worse that she should "get right to the nearest emergency department". Patient denies any new injuries since being seen at [facility]. She states she has been trying to do some range of motion and stretching at home, but has also been resting in bed. She does not have any numbness or tingling in her lower extremities, but does note that her lateral right foot just feels a little "different". She is still ambulatory, but states that her back hurts worse when she stands up. No other complaints at this time. Review of Systems Ten Systems: 10 systems reviewed and negative Constitutional: reports: Reviewed and negative Eyes: reports: Reviewed and negative Ears: reports: Reviewed and negative Nose: reports: Reviewed and negative Throat: reports: Reviewed and negative Cardiac: reports: Reviewed and negative Respiratory: reports: Reviewed and negative GI: reports: Reviewed and negative : reports: Reviewed and negative Skin: reports: Reviewed and negative Musculoskeletal: reports: Back pain, Extremity pain Neurologic: reports: Reviewed and negative Psychiatric: reports: Reviewed and negative Endocrine: reports: Reviewed and negative Immunocompromised: reports: Reviewed and negative PD PAST MEDICAL HISTORY - Past Medical History Past Medical History: Yes Cardiovascular: Hypertension Respiratory: Asthma Neuro: Migraines, Seizure disorder, Other Endocrine/Autoimmune: None 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 : Chronic bladder infection HEENT: None Psych: Anxiety, Bipolar disorder Musculoskeletal: None Derm: None - Past Surgical History Past Surgical History: Yes General: Cholecystectomy, Appendectomy /VAMP MAKER: Tubal ligation, Hysterectomy, LEEP (Cervical surgery) - Present Medications Home Medications: Ambulatory Orders Medication Instructions Recorded Confirmed Albuterol Sulfate [Proventil Hfa 1 - 2 puffs IH Q4H PRN #1 10/26/17 03/25/22 Inhaler] [email or web address] oxyCODONE ER [OxyCONTIN] 10 mg PO TID 09/07/19 03/25/22 ARIPiprazole [Abilify] 30 mg PO DAILY 08/17/20 03/25/22 Verapamil [Calan] 80 mg PO DAILY 08/17/20 03/25/22 cephALEXin [Keflex] 500 mg PO QID 7 Days #28 cap 02/19/22 03/25/22 Cyclobenzaprine [Flexeril] 10 mg PO TID PRN #20 tablet 03/25/22 predniSONE [Deltasone] 60 mg PO DAILY 5 Days #15 tablet 03/25/22 - Allergies Allergies/Adverse Reactions: Allergies Allergy/AdvReac Type Severity Reaction Status Date / Time bupropion HCl * Allergy Rash Verified 03/25/22 19:01 [From Wellbutrin] morphine Allergy Rash Verified 03/25/22 19:01 hydrocodone AdvReac Unknown Verified 03/25/22 19:01 - Social History Does the pt smoke?: Yes Smoking Status: Current every day smoker Does the pt drink ETOH?: Yes Does the pt have substance abuse?: Yes - Immunizations Immunizations are current?: No Immunizations: Other immun not current - POLST Patient has POLST: No PD ED PE NORMAL - Vitals Vital signs reviewed: Yes - General General: Alert and oriented X 3, No acute distress, Well developed/nourished - HEENT HEENT: Atraumatic, PERRL, EOMI, Moist mucous membranes - Neck Neck: Supple, no meningeal sign - Cardiac Cardiac: RRR, No murmur - Respiratory Respiratory: No respiratory distress - Abdomen Abdomen: Soft, Non tender, Non distended - Back Back: No spinal TTP, Other (Moderate tenderness to palpation of the right lumbar paraspinal musculature, extending down into the right sciatic area.) - Derm Derm: Normal color, Warm and dry, No rash - Extremities Extremities: No deformity, No edema - Neuro Neuro: Alert and oriented X 3, 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, No motor deficit, Normal speech, Other (No extremity sensory deficit.) - Psych Psych: Normal mood, Normal affect Results - Vitals Vitals: Vital Signs - 24 hr 03/25/22 03/25/22 03/25/22 18:56 21:19 21:50 Temperature 37.1 C 37.1 C Heart Rate 110 H 92 98 Respiratory 16 16 16 Rate Blood Pressure 141/94 H 127/85 H 127/85 H O2 Saturation 99 99 100 Oxygen O2 Source Room air PD MEDICAL DECISION MAKING - ED course Complexity details: reviewed results, re-evaluated patient, considered differential, d/w patient, d/w family ED course: I reviewed the patient's records from [facility], including her MRI reports. There was no evidence of spinal cord compromise, and no evidence of significant injury. I discussed with the patient that I do not feel that her symptoms at this point in time represent a serious or concerning progression of the injury and finding she already has. I have given her doses of Decadron and Flexeril here. We have discussed stretching and range of motion at home, as well as continuing to use her oxycodone. Departure - Departure Disposition: 01 Home, Self Care Clinical Impression: Sciatica Acute lumbar myofascial strain Qualifiers: Encounter type: initial encounter Qualified Code(s): S39.012A - Strain of muscle, fascia and tendon of lower back, initial encounter Radiculopathy Qualifiers: Spinal region: lumbar Qualified Code(s): M54.16 - Radiculopathy, lumbar region Condition: Stable Instructions: ED Sciatica, ED Neck Back Pain General, ED Back Care Tips, ED Exercises Lumbar Muscles Prescriptions: predniSONE [Deltasone] 60 mg PO DAILY 5 Days #15 tablet Cyclobenzaprine [Flexeril] 10 mg PO TID PRN #20 tablet PRN Reason: Spasms Comments: Your records from [facility] have been reviewed, including your MRI results. While you do have some degenerative changes in your lower spine and a disc herniation in your thoracic spine, there is no evidence of any compromise of your spinal cord. Your symptoms are consistent with some compression of the nerves after they exit the spinal canal, which can cause numbness, tingling, or weakness. Generally, this is not considered an emergent condition, as it will not compromise the spinal cord itself. In addition to the oxycodone you already have at home, you have been prescribed a muscle relaxer and a steroid. You may also take ibuprofen along with these other medications, and the recommended dose would be 800 mg every 8 hours. The prescription for your medications has been electronically transmitted to the [facility] in [place] at your request. Please make an appointment to follow-up with your primary care physician. You should not do anything strenuous with your back, but it is not advisable to just lay in bed, as this will cause you to spasm up further, And worsen your pain and mobility. Discharge Date/Time: 03/25/22 21:54
== END 2022-03-25 21:54 | disposition home or self-care (01) ==
LOC: ED 18:37
DX: S39.012A Strain of muscle, fascia and tendon of lower back, initial encounter (principal); M54.16 Radiculopathy, lumbar region; X50.1XXA Overexertion from prolonged static or awkward postures, initial encounter; Y93.89 Activity, other specified; F17.200 Nicotine dependence, unspecified, uncomplicated
CPT/HCPCS: 96372; 99283; 99284; A9270